=== PATIENT | female | born 1940 | race Caucasian/White ===

== ENCOUNTER 2016-08-26 12:37 | Emergency (ER) | payer MEDICARE ==
[2016-08-26 12:49] VITALS: BP 122/72
--- NOTE | 2016-08-26 13:44 | UC ---
Skin Complaint HPI - HPI Summary HPI Summary: Was out working in yard clearing brush all day yesterday. Noticed small spot on back, picked it off and saw it was a tick. Thinks it was on for only a few hours. Also had been noticing burning pain in R abdomen where she sometimes gets pain due to shingles for a couple days and saw last night that there was a tick on the area. Pulled it off but also used tweezers to dig around, thinks there is some of the tick left. This morning has painful red blotch around the spot. - History of Current Complaint Chief Complaint: UCSkin Time Seen by Provider: 08/26/16 13:26 Stated Complaint: TICK BITES Hx Obtained From: Patient ?: No Onset/Duration: Sudden Onset, Lasting Days Skin Exposure Onset/Duration: Days Ago Timing: Constant Onset Severity: Mild Current Severity: Moderate Location: Discrete Character: Pain, Redness Aggravating: Touch Alleviating: Nothing Associated Signs & Symptoms: Positive: Rash. Negative: Fever, Chills Related History: Insect Bite/Sting - Allergy/Home Medications Allergies/Adverse Reactions: Allergies Allergy/AdvReac Type Severity Reaction Status Date / Time Clavulanic Acid Allergy Severe Vomiting Verified 08/26/16 12:49 [From Augmentin] Moxifloxacin [From Avelox] Allergy Severe Vomiting Verified 08/26/16 12:49 Review of Systems Constitutional: Negative Skin: Rash, Other - tick bites Eyes: Negative ENT: Negative Respiratory: Negative Cardiovascular: Negative Gastrointestinal: Negative Genitourinary: Negative Motor: Negative Neurovascular: Negative Musculoskeletal: Negative Neurological: Negative Psychological: Negative All Other Systems Reviewed And Are Negative: Yes PMH/Surg Hx/FS Hx/Imm Hx Endocrine History Of: Reports: Diabetes Cardiovascular History Of: Reports: Hypertension - ON MEDS Denies: Pacemaker/ICD Respiratory History Of: Denies: Asthma, Bronchitis GI/ History Of: Reports: Ulcer - gerd Denies: Renal Disease - Surgical History Surgical History: Yes Surgery Procedure, Year, and Place: hysterectomy - Family History Known Family History: Positive: Hypertension - Social History Occupation: Retired Lives: Alone Alcohol Use: None Substance Use Type: None Smoking Status (MU): Never Smoked Tobacco - Immunization History Most Recent Influenza Vaccination: 2013 Most Recent Tetanus Shot: UNSURE Most Recent Pneumonia Vaccination: 2013 Physical Exam Triage Information Reviewed: Yes Appearance: Well-Appearing, No Pain Distress, Well-Nourished Vital Signs: Initial Vital Signs Temp 97.6 F 08/26/16 12:43 Pulse 94 08/26/16 12:43 Resp 16 08/26/16 12:43 BP 122/72 08/26/16 12:43 Pulse Ox 99 08/26/16 12:43 Vital Signs Reviewed: Yes Eye Exam: Normal Eyes: Positive: Conjunctiva Clear ENT Exam: Normal ENT: Positive: Normal ENT inspection, Hearing grossly normal, Pharynx normal, TMs normal Dental Exam: Normal Neck exam: Normal Neck: Positive: Supple, Nontender, No Lymphadenopathy Respiratory Exam: Normal Respiratory: Positive: Chest non-tender, Lungs clear, Normal breath sounds, No respiratory distress, No accessory muscle use Cardiovascular Exam: Normal Cardiovascular: Positive: RRR, No Murmur Musculoskeletal Exam: Normal Neurological Exam: Normal Neurological: Positive: Alert Psychological Exam: Normal Skin Exam: Other - tick bite on back faint, small, benign. Tick bite on R abd excoriated, irreg, indurated 4-5cm diameter erythema around it. Course/Dx - Diagnoses Provider Diagnoses: Tick bites. R abdomen cellulitis secondary to picking out tick from skin Discharge - Discharge Plan Condition: Stable Disposition: HOME Prescriptions: DOXYcycline CAP(*) [DOXYcycline 100MG CAP(*)] 100 mg PO BID #14 cap Patient Education Materials: Tick Bite (ED), Cellulitis (ED) Referrals: Jaylen Talavera MD [Primary Care Provider] - Additional Instructions: WE DISCUSSED, THE REDNESS AROUND THE TICK BITE ON YOUR ABDOMEN IS FROM A SECONDARY BACTERIAL INFECTION THAT YOU DEVELOPED AFTER PICKING AT THE AREA. I DO NOT THINK IT IS LYME DISEASE BECAUSE IT IS PAINFUL AND SWOLLEN AND BECAUSE IT SHOWED UP TOO SOON AFTER YOUR TICK EXPOSURE. If you develop any of the following, please see your physician promptly: (1) Fever, chills, or generalized malaise associated with a headache. (2) A red round area at the site of the bite (or elsewhere) (3) Joint pain, joint swelling or generalized weakness. (4) Redness, swelling, or drainage at the site of the bite. Check yourself, your children and your pets for ticks whenever you've been in an area where ticks live. To remove a tick, grasp it firmly with some tweezers or a string in a slipknot as close to its head as possible and pull it steadily. Ticks do not have a typical "head" attached to their body. There are mouth parts sticking out which they use to feed. If there are mouth parts left behind in the wound there is NO increased risk of Lyme infection; however, the chances of a bacterial skin infection (cellulitis) are higher. If mouth parts remain after tick removal, the best thing to do is apply warm soaks to the area 3-4 times per day to encourage the skin to expel the foreign material. WHEN A TICK IS NOT ENGORGED AND HAS BEEN ON LESS THAN 24 HOURS - THE RISK FOR LYME IS NEGLIGIBLE. YOU CAN REMOVE THE TICK AND OBSERVE THE AREA ON YOUR OWN. FOLLOW-UP CARE: You should contact your private physician for follow-up care if you develop spreading redness near the site of the bite or on any other areas of the body. If you are unable to get a timely appointment, or if you are worsening, call us or return for re-evaluation.
== END 2016-08-26 13:45 | disposition home or self-care (01) ==
LOC: UCEAST 12:37
DX: S30.861A Insect bite (nonvenomous) of abdominal wall, initial encounter (principal); W57.XXXA Bitten or stung by nonvenomous insect and other nonvenomous arthropods, initial encounter; E11.9 Type 2 diabetes mellitus without complications; I10 Essential (primary) hypertension; K21.9 Gastro-esophageal reflux disease without esophagitis; Z88.3 Allergy status to other anti-infective agents
CPT/HCPCS: 99212; G0463

== ENCOUNTER 2018-01-09 11:10 | Emergency (ER) | payer MEDICARE ==
[2018-01-09 11:21] VITALS: BP 121/62
--- NOTE | 2018-01-09 11:39 | UC ---
Skin Complaint HPI - HPI Summary HPI Summary: Onset 2 days ago of swelling inside mouth left side more than right. Has had difficulty and pain with swallowing since yesterday. Unable to get her pills down. Difficulty even with water. Redness of the skin extending from under her chin down her neck. Denies any difficulty breathing. Is able to talk in full sentences and is handling her secretions. No fever or nausea. States she has trouble with her teeth on the left lower side. - History of Current Complaint Chief Complaint: UCGeneralIllness Time Seen by Provider: 01/09/18 11:22 Stated Complaint: UNABLE TO SWOLLOW Hx Obtained From: Patient Hx Last Menstrual Period: post Onset/Duration: Sudden Onset, Lasting Days, Still Present Timing: Constant Onset Severity: Moderate Current Severity: Moderate Pain Intensity: 6 Pain Scale Used: 0-10 Numeric Character: Pain, Redness Aggravating Factor(s): Touch Alleviating Factor(s): Nothing Associated Signs & Symptoms: Positive: Fever, Tenderness. Negative: Difficulty Breathing, Throat Tightening - Allergy/Home Medications Allergies/Adverse Reactions: Allergies Allergy/AdvReac Type Severity Reaction Status Date / Time clavulanic acid Allergy Severe Vomiting Verified 01/09/18 11:27 moxifloxacin [From Avelox] Allergy Severe Vomiting Verified 01/09/18 11:27 Review of Systems Constitutional: Fever, Chills Skin: Other - ERYTHEMA ENT: Dental Pain Respiratory: Negative Cardiovascular: Negative Gastrointestinal: Other - PAIN/DIFFICULTY SWALLOWING All Other Systems Reviewed And Are Negative: Yes PMH/Surg Hx/FS Hx/Imm Hx Endocrine History: Diabetes Cardiovascular History: Hypertension GI/ History: Gastroesophageal Reflux - Surgical History Surgical History: Yes Surgery Procedure, Year, and Place: hysterectomy- total - Family History Known Family History: Positive: Hypertension - Social History Alcohol Use: None Substance Use Type: None Smoking Status (MU): Never Smoked Tobacco - Immunization History Most Recent Influenza Vaccination: 2013 Most Recent Tetanus Shot: UNSURE Most Recent Pneumonia Vaccination: 2013 Physical Exam Triage Information Reviewed: Yes Appearance: Well-Nourished, Ill-Appearing - MILD Vital Signs: Initial Vital Signs Temp 98.2 F 01/09/18 11:16 Pulse 98 01/09/18 11:16 Resp 15 01/09/18 11:16 BP 121/62 01/09/18 11:16 Pulse Ox 97 09/12/18 11:16 Vital Signs Reviewed: Yes Eyes: Positive: Conjunctiva Clear ENT: Positive: Hearing grossly normal, Trismus, Other - ERYTHEMA, SUBLINGUAL EDEMA Dental: Positive: Percussion Tenderness @, Gross Decay/Caries @, Cervical Lymphadenopathy Neck: Positive: Tenderness @ - DIFFUSELY LEFT>RIGHT Respiratory Exam: Normal Cardiovascular Exam: Normal Abdomen Description: Positive: Soft Musculoskeletal: Positive: No Edema Neurological: Positive: Alert Psychological: Positive: Normal Response To Family, Age Appropriate Behavior Skin: Positive: Other - ERYTHEMA EXTENDING FROM UNDER CHIN TO UPPER STERNUM Course/Dx - Course Course Of Treatment: PT OFFERED TRANSPORT TO THE ED BY AMBULANCE BUT DECLINES. ADVISED THAT BY NOT TRAVELING IN A MONITORED SETTING SHE COULD BE RISKING WORSENING OF HER CONDITION THAT COULD POSE A THREAT TO HER LIFE, HEALTH AND MEDICAL SAFETY. SHE VERBALIZES UNDERSTANDING AND CONTINUES TO DECLINE AMBULANCE TRANSFER. - Diagnoses Provider Diagnoses: CELLULITIS/ORAL INFECTION Discharge - Sign-Out/Discharge Documenting (check all that apply): Patient Departure All imaging exams completed and their final reports reviewed: No Studies - Discharge Plan Condition: Stable Disposition: TRANS [facility] Patient Education Materials: Cellulitis (ED) Referrals: Jaylen Talavera MD [Primary Care Provider] - Additional Instructions: [place] [facility] [place] FURTHER EVALU[place]. YOU APPEAR TO HAVE AN INFECTION THAT MAY BE STEMMING FROM YOUR TEETH. GIVEN THE EXTENT OF THE SWELLING, REDNESS AND TENDERNESS IN THE AREA OF YOUR JAW AND NECK AND YOUR DIFFICULTY SWALLOWING, TRANSFER TO THE ED IS WARRANTED. YOU HAVE DECLINED TRANSFER TO THE ED BY AMBULANCE. BE ADVISED THAT BY NOT TRAVELING IN A MONITORED SETTING YOU COULD BE RISKING WORSENING OF YOUR CONDITION THAT COULD POSE A THREAT TO YOUR LIFE, HEALTH AND MEDICAL SAFETY. - Billing Disposition and Condition Condition: STABLE Disposition: [facility] Care Fac
== END 2018-01-09 11:43 | disposition short-term general hospital (02) ==
LOC: UCEAST 11:10
DX: K12.2 Cellulitis and abscess of mouth (principal); Z88.8 Allergy status to other drugs, medicaments and biological substances
CPT/HCPCS: 99213; G0463

== ENCOUNTER 2018-01-09 11:53 | Inpatient (IN) | payer MEDICARE ==
--- NOTE | 2018-01-09 13:16 | RAD ---
INDICATION: Sepsis. COMPARISON: Comparison is made with a prior study from July 10, 2012. TECHNIQUE: A portable view of the chest was obtained. FINDINGS: Cardiac and mediastinal contours appear to be within normal limits. The lungs are clear. No pleural effusion is seen. IMPRESSION: NO EVIDENCE FOR ACUTE DISEASE.
--- NOTE | 2018-01-09 13:17 | ED ---
Skin Complaint - HPI Summary HPI Summary: Pt is a 77 year old female presenting to the ED with a chief complaint of a toothache onset 3 days ago. The pain is on the left lower side of the mouth where he wisdom tooth is, and she was up all night last night with pain, has not been able to eat, drink, or swallow. This morning, she went to the and they sent her here. She has been producing phlegm and mucous and has been spitting it out because she cannot swallow it. - History of Current Complaint Chief Complaint: EDRashSkinAbscess Time Seen by Provider: 01/09/18 12:58 Stated Complaint: DENTAL PAIN/POS INFECTION Hx Obtained From: Patient Hx Last Menstrual Period: post Onset/Duration: Started Days Ago, Still Present, Worse Since - this morning Skin Exposure Onset/Duration: Days Ago Timing: Constant, Lasting Days Onset Severity: Severe Current Severity: Severe Pain Intensity: 10 Pain Scale Used: 0-10 Numeric Skin Location: Other: - lower L jaw Character: Swelling - in mouth, Pain Aggravating Symptom(s): Other: - eating, drinking, swallowing spit Alleviating Symptom(s): Nothing - Additional Pertinent History Primary Care Physician: [id number] - Allergy/Home Medications Allergies/Adverse Reactions: Allergies Allergy/AdvReac Type Severity Reaction Status Date / Time clavulanic acid Allergy Severe Vomiting Verified 01/09/18 11:27 moxifloxacin [From Avelox] Allergy Severe Vomiting Verified 01/09/18 11:27 Home Medications: Home Medications Benzonatate CAP* [Tessalon 100 MG CAP*] 200 mg PO TID PRN 01/09/18 [History Confirmed 01/09/18] Cetirizine* [ZyrTEC 10 MG TAB*] 10 mg PO DAILY 01/09/18 [History Confirmed 01/09] Cyclobenzaprine TAB* [Flexeril 10 MG TAB*] 10 mg PO TID PRN 01/09/18 [History Confirmed 01/09/18] Diclofenac 1% GEL (NF) [Voltaren 1% GEL (NF)] 2 applic TOPICAL TID PRN 01/09/18 [History Confirmed 01/09/18] Gabapentin CAP(*) [Neurontin 300 CAP(*)] 300 mg PO TID 01/09/18 [History Confirmed 01/09/18] GuaiFENesin DM* [Robitussin DM*] 5 ml PO Q4H PRN 01/09/18 [History Confirmed 04/16] Lisinopril TAB* [Prinivil TAB*] 30 mg PO DAILY 01/09/18 [History Confirmed 01/09] Multivitamins/Minerals TAB* [Theragran/minerals TAB*] 1 tab PO DAILY 01/09/18 [ History Confirmed 01/09/18] Omeprazole CAP* [Prilosec CAP* 20 MG] 40 mg PO DAILY 01/09/18 [History Confirmed 01/09/18] Oxybutynin XL TAB* [Ditropan XL TAB*] 5 mg PO DAILY 01/09/18 [History Confirmed 01/09/18] Pravastatin (NF) [Pravachol (NF)] 80 mg PO DAILY 01/09/18 [History Confirmed 04/16] PMH/Surg Hx/FS Hx/Imm Hx Previously Healthy: No Endocrine/Hematology History: Reports: Hx Diabetes - NIDDM Cardiovascular History: Reports: Hx Hypertension - ON MEDS Denies: Hx Pacemaker/ICD Respiratory History: Denies: Hx Asthma GI History: Reports: Hx Gastroesophageal Reflux Disease, Hx Ulcer - gerd History: Reports: Hx Kidney Infection - UTI Denies: Hx Renal Disease Musculoskeletal History: Reports: Hx Arthritis, Hx Back Problems - CERVICAL VERTEBRAE DISLOCATION Sensory History: Reports: Hx Contacts or Glasses Denies: Hx Hearing Aid Opthamlomology History: Reports: Hx Contacts or Glasses Neurological History: Reports: 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, Other Neuro Impairments/Disorders - HX OF NUMBNESS IN EXTREMITIES FROM CERVICAL DISLOCATION Psychiatric History: Reports: Other Psychiatric Issues/Disorders - CLAUSTROPHOBIA Denies: Hx Panic Disorder - Surgical History Surgery Procedure, Year, and Place: hysterectomy- total Hx Anesthesia Reactions: No Infectious Disease History: No Infectious Disease History: Reports: Hx Hepatitis - as a child, Hx Shingles - 2011 Denies: Hx Clostridium Difficile, Hx Human Immunodeficiency Virus (HIV), Hx of Known/Suspected MRSA, Hx Tuberculosis, History Other Infectious Disease, Traveled Outside the [place] in Last 30 Days - Family History Known Family History: Positive: Hypertension - Social History Alcohol Use: None Substance Use Type: Reports: None Smoking Status (MU): Never Smoked Tobacco Review of Systems Negative: Fever, Chills Negative: Erythema ENT: Other - swollen painful toothache L lower mouth Positive: Sore Throat Negative: Chest Pain Negative: Shortness Of Breath, Cough Negative: Abdominal Pain, Vomiting, Nausea Negative: dysuria, hematuria Negative: Myalgia, Edema Negative: Rash Neurological: Negative - dizziness All Other Systems Reviewed And Are Negative: Yes Physical Exam - Summary Physical Exam Summary: Constitutional: Well-developed, Well-nourished, Alert. (-) Distressed Skin: Warm, Dry HENT: Moderate trismus, brawny edema in the SL space with elevation of tongue on L side, seems to be handling secretions, no stridor. Eyes: Conjunctiva normal Neck: Musculoskeletal ROM normal neck. (-) JVD, (-) Tracheal deviation Cardio: Rhythm regular, rate normal, Heart sounds normal; Intact distal pulses; The pedal pulses are 2+ and symmetric. Radial pulses are 2+ and symmetric. (-) Murmur Pulmonary/Chest wall: Effort normal. (-) Respiratory distress, (-) Wheezes, (-) Rales Abd: Soft, (-) epigastric tenderness, (-) Distension, (-) Guarding, (-) Rebound Musculoskeletal: (-) Edema Lymph: (-) Cervical adenopathy Neuro: Alert, Oriented x3 Psych: Mood and affect Normal Triage Information Reviewed: Yes Vital Signs On Initial Exam: Initial Vitals Temp Pulse Resp BP Pulse Ox 98.4 F 92 15 125/67 98 01/09/18 12:03 01/09/18 12:03 01/09/18 12:03 01/09/18 12:03 01/09/18 12:03 Vital Signs Reviewed: Yes Diagnostics - Vital Signs Vital Signs Temp Pulse Resp BP Pulse Ox 01/09/18 13:01 80 12 121/81 99 01/09/18 13:00 20 01/09/18 12:03 98.4 F 92 15 125/67 98 - Laboratory Result Diagrams: 01/09/18 13:16 01/09/18 13:16 Lab Statement: Any lab studies that have been ordered have been reviewed, and results considered in the medical decision making process. - Radiology CXR Xray Interpretation: No Acute Changes - Chest X-Ray: No evidence for acute disease Radiology Interpretation Completed By: Radiologist - ED physician has reviewed this report. Course/Dx - Course Course Of Treatment: Pt is a 77 year old female presenting to the ED with left lower jaw/tooth pain. Her mouth is swollen and she cannot drink, eat, or swallow. Upon examination, I believe pt needs to be admitted. I spoke with Dr. Barron in ENT, who advised 12 mg of decadron q12hrs, and will be in to see the pt later this evening. He agreed with abx. No indication for intubation. Also discussed w/ roll sheeting cutter Dr. June, who is coming to see the pt within 20 minutes. Pt will be closely monitored. - Diagnoses Provider Diagnoses: Jayden's angina, Sepsis - Critical Care Time Critical Care Time: 30-74 min - 1 hour Discharge - Sign-Out/Discharge Documenting (check all that apply): Patient Departure - admission - Discharge Plan Condition: Stable Disposition: ADMITTED TO [facility] Referrals: Jaylen Talavera MD [Primary Care Provider] - - Attestation Statements Document Initiated by Scribe: Yes Documenting Scribe: Ayla Marie Provider For Whom Scribe is Documenting (Include Credential): Adam Kraft MD. Scribe Attestation: I, Ayla Marie, scribed for Adam Kraft MD. on 01/09/18 at 1658. Consult Consult: 1810 - Spoke with Dr. Barron in ENT, who advised 12 mg of decadron q12hrs, agreed upon an abx course, and will be in later to see the pt. Also spoke with the roll sheeting cutter Dr. June, who agreed to see the pt within 20 minutes.
[2018-01-09 13:24] LABS: ABS Basophils 0.1 10^3/ul (0-0.2); ABS Eosinophils 0 10^3/ul (0-0.6); ABS Monocytes 1.4 10^3/ul (0-0.8); ABS Neutrophils 13.4 10^3/ul (1.5-7.7); ABS Nucleated RBC 0 10^3/ul; Eosinophil % 0.1 % (0-6); Hematocrit 38 % (35-47); Hemoglobin 12.7 g/dl (12.0-16.0); Mean Corpuscular HGB Conc 34 g/dl (31-36); Mean Corpuscular Hemoglobin 32 pg (27-31); Mean Corpuscular Volume 95 fL (80-97); Mean Platelet Volume 8.6 um3 (7.4-10.4); Nucleated Red Blood Cells % 0; Platelet Count 211 10^3/ul (150-450); Red Blood Count 3.99 10^6/ul (4.00-5.40); Red Cell Distribution Width 14 % (10.5-15); White Blood Count 16.8 10^3/ul (3.5-10.8)
[2018-01-09 13:37] LABS: INR 0.98 (0.77-1.02)
[2018-01-09 13:46] LABS: EGFR Non-African American 84.4 (>60)
[2018-01-09] MEDS ORDERED: NS 0.9% 1000 ML* 1,500 ML IV ONE (14:44)
[2018-01-09] MEDS ORDERED: Vancomycin(*) 1,250 MG in NS 0.9% 250 ML* 250 ML IVPB ONE (14:44)
[2018-01-09] MEDS ORDERED: NS 0.9% 250 ML* 0 ML ONE (14:50)
[2018-01-09] MEDS ORDERED: Dexamethasone IV* 4 MG/ML 1 ML (4 MG) IV SLOW PU ONE ×2 (15:03→15:16)
[2018-01-09] MEDS ORDERED: metroNIDAZOLE IV 500 MG/100ML* 500 MG/100 ML BAG IVPB ONE (15:10)
[2018-01-09] MEDS ORDERED: Cefepime 2 GM in Dextrose(*) 2 GM/50 ML BAG IV ONE (15:10)
[2018-01-09] MEDS ORDERED: Morphine VIAL* 10 MG/ML 1 ML VIAL IV ONE (15:13)
[2018-01-09] MEDS ORDERED: Ondansetron INJ* 2 MG/ML VIAL IV ONE (15:13)
[2018-01-09] MEDS ORDERED: Iohexol 300* (CONTRAST) 10 ML SDV IV ONE (16:31)
[2018-01-09] MEDS ORDERED: Dextrose 50% Syringe 50 ML* 25 GM/50 ML SYRINGE IV PUSH PRN (17:13)
[2018-01-09] MEDS ORDERED: Morphine INJ* 2 MG/ML 1 ML SYRINGE (TWO MG - NEW SYRINGE VERSION) IV PRN (17:20)
[2018-01-09 17:29] LABS: Urine Appearance Clear; Urine Blood 1+ (Negative); Urine Color Straw; Urine Ketones Trace (Negative); Urine Protein Negative (Negative); Urine Red Blood Cell Absent (Absent); Urine Specific Gravity 1.004 (1.010-1.030); Urine Urobilinogen Negative (Negative); Urine White Blood Cell Trace(0-5/hpf) (Absent)
--- NOTE | 2018-01-09 17:36 | RAD ---
Indication: Abscess, Jayden angina. Contrast: Administered 50.4 ml of OMNIPAQUE 300 mg/ml CT of the soft tissues of the neck performed in the axial plane. Sagittal and coronal reconstructed images were obtained. The lung apices are grossly unremarkable. The origins of the great vessels are unremarkable. Inferior thyroid lobes are grossly unremarkable. The thyroid gland is unremarkable. Submandibular glands are prominent on the left. In the floor of the mouth there is edema especially around the strap muscles towards the left. The however there is no drainable fluid collections noted. This is consistent with patient's history. The oral pharynx and tonsillar pillars are otherwise unremarkable. No prevertebral soft tissue swelling is noted. Parotid glands are unremarkable. No significant adenopathy is noted although small 5 mm lymph nodes are noted in the posterior triangle bilaterally. Multilevel degenerative disc disease is noted within the cervical spine. Evaluation of the mandible demonstrates multiple dental caries. Multiple dental caries are noted in the teeth in the maxilla as well. Multiple missing teeth are also noted. IMPRESSION: There is edema in the submandibular area surrounding the strap muscles and left submandibular gland. This is consistent with inflammatory change with no evidence of drainable fluid collections. Multiple areas of missing teeth is noted in the mandible and maxilla as well as multiple dental caries noted.
--- NOTE | 2018-01-09 17:44 | HP ---
H&P (Free Text) History and Physical: [facility] History and Physical CC: difficulty swallowing HPI: 77F with htn, hld, dm presents with difficulty swallowing. She has associated left jaw pain and drooling. She denies any fever or chills. The patient states the symptoms started approximately 2 days ago. She reports that is progressing and is now unbearable. She came to the ER and there was concern for possible submandibular soft tissue infection that could possibly compromise her airway so icu was consulted. ROS - as per HPI PMHx - htn, hld, dm PSHx - hysterectomny All - moxifloxicin, clavulanic acid FamHx - denies SocHx - no drugs, etoh, tobacco PE Vital Signs: Temp Pulse Resp BP Pulse Ox 98.4 F 88 16 138/68 98 01/09/18 17:34 01/09/18 17:34 01/09/18 17:34 01/09/18 17:34 01/09/18 17:34 Gen - NAD HEENT - ncat, +left tmj tenderness Neck - + erythema, no masses CV - s1/s2, no murmur Lungs - cta, no wheeze Abd - soft, nt Ext - no edema Neuro - non-focal Labs Laboratory Results - last 24 hr 01/09/18 01/09/18 01/09/18 13:16 13:16 13:16 WBC 16.8 H RBC 3.99 L Hgb 12.7 Hct 38 MCV 95 MCH 32 H MCHC 34 RDW 14 Plt Count 211 MPV 8.6 Neut % (Auto) 79.5 Lymph % (Auto) 12.0 L Crosby % (Auto) 8.1 H Eos % (Auto) 0.1 Baso % (Auto) 0.3 Absolute Neuts (auto) 13.4 H Absolute Lymphs (auto) 2.0 Absolute Monos (auto) 1.4 H Absolute Eos (auto) 0 Absolute Basos (auto) 0.1 Absolute Nucleated RBC 0 Nucleated RBC % 0 INR (Anticoag Therapy) 0.98 APTT 31.6 Sodium 137 Potassium 3.5 Chloride 98 L Carbon Dioxide 29 Anion Gap 10 BUN 12 Creatinine 0.68 Est GFR ( Amer) 102.1 Est GFR (Non-Af Amer) 84.4 BUN/Creatinine Ratio 17.6 Glucose 108 H Lactic Acid Calcium 9.2 Total Bilirubin 1.00 AST 13 ALT 12 Alkaline Phosphatase 65 Troponin I 0.01 Total Protein 7.3 Albumin 4.3 Globulin 3.0 Albumin/Globulin Ratio 1.4 Urine Color Urine Appearance Urine pH Ur Specific Dimmitt Urine Protein Urine Ketones Urine Blood Urine Nitrate Urine Bilirubin Urine Urobilinogen Ur Leukocyte Esterase Urine WBC (Auto) Urine RBC (Auto) Ur Squamous Epith Cells Urine Bacteria Urine Glucose 01/09/18 01/09/18 01/09/18 13:16 16:43 17:20 WBC RBC Hgb Hct MCV MCH MCHC RDW Plt Count MPV Neut % (Auto) Lymph % (Auto) Crosby % (Auto) Eos % (Auto) Baso % (Auto) Absolute Neuts (auto) Absolute Lymphs (auto) Absolute Monos (auto) Absolute Eos (auto) Absolute Basos (auto) Absolute Nucleated RBC Nucleated RBC % INR (Anticoag Therapy) APTT Sodium Potassium Chloride Carbon Dioxide Anion Gap BUN Creatinine Est GFR ( Amer) Est GFR (Non-Af Amer) BUN/Creatinine Ratio Glucose Lactic Acid 1.0 0.9 Calcium Total Bilirubin AST ALT Alkaline Phosphatase Troponin I Total Protein Albumin Globulin Albumin/Globulin Ratio Urine Color Straw Urine Appearance Clear Urine pH 5.0 Ur Specific Dimmitt 1.004 L Urine Protein Negative Urine Ketones Trace A Urine Blood 1+ A Urine Nitrate Negative Urine Bilirubin Negative Urine Urobilinogen Negative Ur Leukocyte Esterase Negative Urine WBC (Auto) Trace(0-5/hpf) Urine RBC (Auto) Absent Ur Squamous Epith Cells Present A Urine Bacteria Absent Urine Glucose Negative Imaging CT neck 01/09/18 - pending CXR 01/09 IMPRESSION: NO EVIDENCE FOR ACUTE DISEASE. Impression 77F with htn, hld, dm presents with infected tooth and possible airway compromise Plan - Monitor airway - cefepime/flagyl - decadron q12 - npo - aspiration precautions - ENT evaluated patient in ER - oral surgery consult in am - pain control - check fs, niss - dvt ppx - full code Admit to ICU for monitoring Critical Care Time: 45 mins
[2018-01-09] MEDS ORDERED: Vancomycin per Pharmacy* NOTE FOLLOW UP SCH (18:00)
[2018-01-09] MEDS ORDERED: Dexamethasone IV* 4 MG in NS 0.9% 50 ML* 50 ML IVPB SCH (18:00)
[2018-01-09] MEDS ORDERED: Cefepime 2 GM in Dextrose(*) 2 GM/50 ML BAG IV SCH (18:00)
[2018-01-09] MEDS: Dexamethasone IV* 8 MG in NS 0.9% 50 ML* 50 ML IVPB SCH (18:59)
[2018-01-09] MEDS: Insulin LISPRO* 1 UNITS UNIT SUBCUT SCH (18:59)
--- NOTE | 2018-01-09 21:54 | CONS ---
CONSULTATION REPORT: DATE OF CONSULT: 01/09/18 Requesting consultation is the emergency room and the intensive care unit. HISTORY OF PRESENT ILLNESS: The patient presented with swelling in her floor of mouth and the plan at this point is to admit her for IV antibiotics. She has gotten some IV antibiotics and steroids in the ICU and she just has a CT scan. She states she has been having problems with lower left posterior molar and it has been infected and then she started having the swelling. PHYSICAL EXAMINATION: On physical examination, she has got some submental induration more centered on the left side and some floor of mouth swelling, again more centered on the left side posteriorly to the molar where she has some pus draining. She does not have any retropulsion of her tongue. No airway difficulties at this time. ASSESSMENT: The patient has a orofacial cellulitis and neck cellulitis secondary to a dental infection. She is being admitted for IV antibiotics and steroids, for precaution at least 1 night in the ICU. I have spoken to the intensive care unit doctor. [id number] #: [id number]
[2018-01-09] MEDS: metroNIDAZOLE IV 500 MG/100ML* 500 MG/100 ML BAG IVPB SCH (23:19)
[2018-01-10] MEDS: Insulin LISPRO* 1 UNITS UNIT SUBCUT SCH ×5 (00:14→21:09)
[2018-01-10] MEDS: NS 0.9% IVPB SCH ×2 (03:06→16:26)
[2018-01-10] MEDS: CEFEPIME ADVAN IVPB SCH ×2 (03:06→16:26)
[2018-01-10 05:21] LABS: ABS Basophils 0 10^3/ul (0-0.2); ABS Eosinophils 0 10^3/ul (0-0.6); ABS Lymphocytes 0.8 10^3/ul (1.0-4.8); ABS Monocytes 0.4 10^3/ul (0-0.8); ABS Neutrophils 12.3 10^3/ul (1.5-7.7); ABS Nucleated RBC 0 10^3/ul; Eosinophil % 0 % (0-6); Hematocrit 35 % (35-47); Hemoglobin 11.7 g/dl (12.0-16.0); Lymphocyte % 5.6 % (25-47); Mean Corpuscular HGB Conc 33 g/dl (31-36); Mean Corpuscular Hemoglobin 32 pg (27-31); Mean Corpuscular Volume 95 fL (80-97); Mean Platelet Volume 9.1 um3 (7.4-10.4); Nucleated Red Blood Cells % 0; Platelet Count 183 10^3/ul (150-450); Red Blood Count 3.69 10^6/ul (4.00-5.40); Red Cell Distribution Width 14 % (10.5-15); White Blood Count 13.5 10^3/ul (3.5-10.8)
[2018-01-10] MEDS: Dexamethasone IV* 8 MG in NS 0.9% 50 ML* 50 ML IVPB SCH ×2 (05:21→17:54)
[2018-01-10] MEDS ORDERED: Ketorolac INJ* 15 MG/ML 1 ML VIAL IV PUSH ONE (05:33)
[2018-01-10 05:38] LABS: EGFR Non-African American 101.3 (>60)
[2018-01-10] MEDS ORDERED: Magnesium Sulfate IV* 3 GM in NS 0.9% 100 ML* 100 ML IVPB ONE (07:57)
[2018-01-10] MEDS: metroNIDAZOLE IV 500 MG/100ML* 500 MG/100 ML BAG IVPB SCH ×3 (08:01→22:54)
--- NOTE | 2018-01-10 08:12 | PN ---
Date of Service: 01/10/18 Critical Care Services: 77F with htn, hld, dm presents with tooth infection and concern for airway compromise. 01/10: Patient did well overnight. Improvement in pain and swelling. Neck ct negative for abscess. OMFS no longer seeing inpatients. Vital Signs: Temp Pulse Resp BP SpO2 FiO2 97.7 F 84 14 147/69 99 01/10/18 07:44 01/10/18 06:00 01/10/18 06:00 01/10/18 04:00 01/10/18 06:00 Physical Exam: Gen - NAD HEENT - ncat, +left tmj tenderness Neck - + erythema, no masses CV - s1/s2, no murmur Lungs - cta, no wheeze Abd - soft, nt Ext - no edema Neuro - non-focal Fluid Balance (Past 24 Hours): I= O= Net Intake & Output 01/08/18 01/09/18 01/10/18 01/11/18 06:59 06:59 06:59 06:59 Intake Total 1360 Balance 1360 Weight 52.9 kg Intake: IV Fluids 1360 NS 210 Other: Estimated Void Medium # Bowel Movements 0 # Voids 2 Labs: Laboratory Results - last 24 hr 01/09/18 01/09/18 01/09/18 13:16 13:16 13:16 WBC 16.8 H RBC 3.99 L Hgb 12.7 Hct 38 MCV 95 MCH 32 H MCHC 34 RDW 14 Plt Count 211 MPV 8.6 Neut % (Auto) 79.5 Lymph % (Auto) 12.0 L [place] % (Auto) 8.1 H Eos % (Auto) 0.1 Baso % (Auto) 0.3 Absolute Neuts (auto) 13.4 H Absolute Lymphs (auto) 2.0 Absolute Monos (auto) 1.4 H Absolute Eos (auto) 0 Absolute Basos (auto) 0.1 Absolute Nucleated RBC 0 Nucleated RBC % 0 INR (Anticoag Therapy) 0.98 APTT 31.6 Sodium 137 Potassium 3.5 Chloride 98 L Carbon Dioxide 29 Anion Gap 10 BUN 12 Creatinine 0.68 Est GFR ( Amer) 102.1 Est GFR (Non-Af Amer) 84.4 BUN/Creatinine Ratio 17.6 Glucose 108 H POC Glucose (mg/dL) Lactic Acid Calcium 9.2 Magnesium Total Bilirubin 1.00 AST 13 ALT 12 Alkaline Phosphatase 65 Troponin I 0.01 Total Protein 7.3 Albumin 4.3 Globulin 3.0 Albumin/Globulin Ratio 1.4 Urine Color Urine Appearance Urine pH Ur Specific [place] Urine Protein Urine Ketones Urine Blood Urine Nitrate Urine Bilirubin Urine Urobilinogen Ur Leukocyte Esterase Urine WBC (Auto) Urine RBC (Auto) Ur Squamous Epith Cells Urine Bacteria Urine Glucose 01/09/18 01/09/18 01/09/18 13:16 16:43 17:20 WBC RBC Hgb Hct MCV MCH MCHC RDW Plt Count MPV Neut % (Auto) Lymph % (Auto) [place] % (Auto) Eos % (Auto) Baso % (Auto) Absolute Neuts (auto) Absolute Lymphs (auto) Absolute Monos (auto) Absolute Eos (auto) Absolute Basos (auto) Absolute Nucleated RBC Nucleated RBC % INR (Anticoag Therapy) APTT Sodium Potassium Chloride Carbon Dioxide Anion Gap BUN Creatinine Est GFR ( Amer) Est GFR (Non-Af Amer) BUN/Creatinine Ratio Glucose POC Glucose (mg/dL) Lactic Acid 1.0 0.9 Calcium Magnesium Total Bilirubin AST ALT Alkaline Phosphatase Troponin I Total Protein Albumin Globulin Albumin/Globulin Ratio Urine Color Straw Urine Appearance Clear Urine pH 5.0 Ur Specific [place] 1.004 L Urine Protein Negative Urine Ketones Trace A Urine Blood 1+ A Urine Nitrate Negative Urine Bilirubin Negative Urine Urobilinogen Negative Ur Leukocyte Esterase Negative Urine WBC (Auto) Trace(0-5/hpf) Urine RBC (Auto) Absent Ur Squamous Epith Cells Present A Urine Bacteria Absent Urine Glucose Negative 01/09/1818 01/10/18 18:17 00:07 05:00 WBC RBC Hgb Hct MCV MCH MCHC RDW Plt Count MPV Neut % (Auto) Lymph % (Auto) [place] % (Auto) Eos % (Auto) Baso % (Auto) Absolute Neuts (auto) Absolute Lymphs (auto) Absolute Monos (auto) Absolute Eos (auto) Absolute Basos (auto) Absolute Nucleated RBC Nucleated RBC % INR (Anticoag Therapy) APTT Sodium 136 Potassium 3.7 Chloride 100 L Carbon Dioxide 24 Anion Gap 12 H BUN 12 Creatinine 0.58 Est GFR ( Amer) 122.6 Est GFR (Non-Af Amer) 101.3 BUN/Creatinine Ratio 20.7 H Glucose 166 H POC Glucose (mg/dL) 179 H 189 H Lactic Acid Calcium 9.0 Magnesium 1.3 L Total Bilirubin AST ALT Alkaline Phosphatase Troponin I Total Protein Albumin Globulin Albumin/Globulin Ratio Urine Color Urine Appearance Urine pH Ur Specific [place] Urine Protein Urine Ketones Urine Blood Urine Nitrate Urine Bilirubin Urine Urobilinogen Ur Leukocyte Esterase Urine WBC (Auto) Urine RBC (Auto) Ur Squamous Epith Cells Urine Bacteria Urine Glucose 01/10/18 05:00 WBC 13.5 H RBC 3.69 L Hgb 11.7 L Hct 35 MCV 95 MCH 32 H MCHC 33 RDW 14 Plt Count 183 MPV 9.1 Neut % (Auto) 91.3 H Lymph % (Auto) 5.6 L [place] % (Auto) 3.0 Eos % (Auto) 0 Baso % (Auto) 0.1 Absolute Neuts (auto) 12.3 H Absolute Lymphs (auto) 0.8 L Absolute Monos (auto) 0.4 Absolute Eos (auto) 0 Absolute Basos (auto) 0 Absolute Nucleated RBC 0 Nucleated RBC % 0 INR (Anticoag Therapy) APTT Sodium Potassium Chloride Carbon Dioxide Anion Gap BUN Creatinine Est GFR ( Amer) Est GFR (Non-Af Amer) BUN/Creatinine Ratio Glucose POC Glucose (mg/dL) Lactic Acid Calcium Magnesium Total Bilirubin AST ALT Alkaline Phosphatase Troponin I Total Protein Albumin Globulin Albumin/Globulin Ratio Urine Color Urine Appearance Urine pH Ur Specific [place] Urine Protein Urine Ketones Urine Blood Urine Nitrate Urine Bilirubin Urine Urobilinogen Ur Leukocyte Esterase Urine WBC (Auto) Urine RBC (Auto) Ur Squamous Epith Cells Urine Bacteria Urine Glucose Studies: CT neck 01/09 IMPRESSION: There is edema in the submandibular area surrounding the strap muscles and left submandibular gland. This is consistent with inflammatory change with no evidence of drainable fluid collections. Multiple areas of missing teeth is noted in the mandible and maxilla as well as multiple dental caries noted. Impression: 77F with htn, hld, dm presents with infected tooth and possible airway compromise Plan: Plan - CT neck without abscess - likely needs tooth pulled however OMFS note available inpatient - if continues to improve on abx/steroids possible to discharge to follow up in OMFS office as outpatient, otherwise will need transfer to facility with oral surgery - c/w cefepime/flagyl - tape steroids - pain control - swallow eval - aspiration precautions - restart home bp meds - check fs, niss - gi/dvt ppx - full code Transfer to Floor
[2018-01-10] MEDS ORDERED: Omeprazole CAP* 20 MG PO ONE (08:22)
[2018-01-10] MEDS: Lisinopril TAB* 10 MG PO SCH (09:18)
[2018-01-10] MEDS: Multivitamins/Minerals TAB PO SCH (09:18)
[2018-01-10] MEDS ORDERED: Insulin LISPRO* 1 UNITS UNIT SUBCUT ONE (12:55)
[2018-01-10] MEDS ORDERED: Atorvastatin* 20 MG TAB PO SCH (17:00)
[2018-01-11] MEDS: NS 0.9% IVPB SCH (03:12)
[2018-01-11] MEDS: CEFEPIME ADVAN IVPB SCH (03:12)
[2018-01-11] MEDS: Dexamethasone IV* 8 MG in NS 0.9% 50 ML* 50 ML IVPB SCH (05:40)
[2018-01-11 07:13] LABS: ABS Basophils 0 10^3/ul (0-0.2); ABS Eosinophils 0 10^3/ul (0-0.6); ABS Lymphocytes 0.7 10^3/ul (1.0-4.8); ABS Monocytes 0.7 10^3/ul (0-0.8); ABS Neutrophils 16.7 10^3/ul (1.5-7.7); ABS Nucleated RBC 0 10^3/ul; Eosinophil % 0 % (0-6); Hematocrit 33 % (35-47); Hemoglobin 10.9 g/dl (12.0-16.0); Lymphocyte % 3.9 % (25-47); Mean Corpuscular HGB Conc 33 g/dl (31-36); Mean Corpuscular Hemoglobin 32 pg (27-31); Mean Corpuscular Volume 95 fL (80-97); Mean Platelet Volume 9.1 um3 (7.4-10.4); Nucleated Red Blood Cells % 0; Platelet Count 229 10^3/ul (150-450); Red Blood Count 3.43 10^6/ul (4.00-5.40); Red Cell Distribution Width 14 % (10.5-15); White Blood Count 18.2 10^3/ul (3.5-10.8)
[2018-01-11 07:33] LABS: EGFR Non-African American 95.6 (>60)
[2018-01-11] MEDS: Lisinopril TAB* 10 MG PO SCH (07:40)
[2018-01-11] MEDS: Multivitamins/Minerals TAB PO SCH (07:40)
[2018-01-11] MEDS: metroNIDAZOLE IV 500 MG/100ML* 500 MG/100 ML BAG IVPB SCH (07:40)
[2018-01-11] MEDS: Insulin LISPRO* 1 UNITS UNIT SUBCUT SCH (08:07)
--- NOTE | 2018-01-11 09:37 | PN ---
Progress Note - Progress Note Date of Service: 01/11/18 Note: Time spent on discharge 45 minutes, including exam of patient, discussion with patient, nurse, CM, Dr. Espinoza and his staff, review of EMR and preparation of discharge documents.
[2018-01-11 12:32] VITALS: BP 150/72
--- NOTE | 2018-01-12 06:46 | DS ---
CC: Dr. Talavera; Dr. Orellana DISCHARGE SUMMARY: DATE OF ADMISSION: DATE OF DISCHARGE: 01/11/18 HISTORY OF PRESENT ILLNESS: This 77-year-old presented woman presented with difficulty swallowing and pain in the left jaw. These symptoms started about 2 days before admission and became quite severe. There was some submandibular swelling and there was concern that there might be airway compromise. The patient was admitted to the email developer service in the ICU. She was started on dexamethasone, cefepime, and metronidazole, all given intravenously. She did well with resolution of her swelling, the pain improved significantly as well. She was able to eat and drink normally. There was no airway problem at all. Her white count went down, but started to going up undoubtedly due to the steroid administration. I believe she did not require any analgesics in the hospital, I am not sure if she would accept any. The patient insisted she had to leave this morning. She says she needs to take care of her disabled son as well as her mother who is 95 years old. The patient will go home on prednisone 60 mg daily and clindamycin 300 mg t.i.d. She can see Dr. Orellana on 01/16/18 at 10:45 a.m. Possibly, she will be able to see Dr. Orellana this afternoon, but the availability of this is not known at the time of this dictation. The patient was offered an appointment with Dr. Orellana at 11 o'clock this morning, but declined that. She said she had to go home and arrange for care for her family before she could do anything else. I explained to her that she needed to ensure her own health in order that she would be able in the future to continue to provide for her family care as she has been giving. This did not seem to have any effect on her decision making. FINAL DIAGNOSES: 1. Probable left mandibular dental infection. 2. Diabetes. 3. Hypertension. DISCHARGE MEDICATIONS: 1. Clindamycin 300 mg t.i.d., 21 dispensed. 2. Prednisone 20 mg 3 tablets daily, 15 dispensed. 3. Hydrocodone acetaminophen 5/325 t.i.d. p.r.n. 4. Metformin 1000 mg b.i.d. to not start until Sunday01/12/18. 5. Oxybutynin XL 5 mg daily. 6. Omeprazole 40 mg daily. 7. Multivitamin 1 daily. 8. Lisinopril 30 mg daily. 9. Guaifenesin-DM 5 mL every 4 hours, p.r.n. 10. Gabapentin 300 mg t.i.d. 11. Diclofenac 1% gel t.i.d. p.r.n. 12. Cyclobenzaprine 10 mg t.i.d., p.r.n. 13. Cetirizine 10 mg daily. 14. Benzonatate 200 mg t.i.d., p.r.n. 15. Pravastatin 80 mg daily. CONDITION ON DISCHARGE: Stable. DISPOSITION: Home. [id number]/[facility] #: [id number] [facility]
== END 2018-01-11 12:25 | disposition home or self-care (01) | DRG 158 ==
LOC: ED 11:53 → ICU 17:55 → MED 01-10 14:17
PROVIDERS: ADMIT Internal Medicine; ATTEND Internal Medicine
DX: K04.7 Periapical abscess without sinus (principal); L03.221 Cellulitis of neck; K12.2 Cellulitis and abscess of mouth; M27.2 Inflammatory conditions of jaws; K21.9 Gastro-esophageal reflux disease without esophagitis; E11.9 Type 2 diabetes mellitus without complications; M19.90 Unspecified osteoarthritis, unspecified site; E78.5 Hyperlipidemia, unspecified; F40.240 Claustrophobia; I10 Essential (primary) hypertension; Z88.1 Allergy status to other antibiotic agents; Z88.8 Allergy status to other drugs, medicaments and biological substances; Z87.440 Personal history of urinary (tract) infections; Z90.710 Acquired absence of both cervix and uterus; Z82.49 Family history of ischemic heart disease and other diseases of the circulatory system; Z79.52 Long term (current) use of systemic steroids; Z79.84 Long term (current) use of oral hypoglycemic drugs
CPT/HCPCS: 36415; 70491; 71045; 80048; 80053; 81003; 81015; 83605; 83735; 84484; 85025; 85610; 85730; 87040; 87086; 87641; 99285; A9270-GY; J0692; J1100; J1885; J2270; J2405; J3370; J3475; J3490; Q9967

== ENCOUNTER 2018-11-18 15:04 | Inpatient (IN) | payer MEDICARE ==
[2018-11-18 15:38] LABS: Hematocrit 26 % (35-47); Mean Corpuscular HGB Conc 35 g/dL (31-36); Mean Corpuscular Hemoglobin 29 pg (27-31); Mean Corpuscular Volume 84 fL (80-97); Mean Platelet Volume 8.1 fL (7.4-10.4); Platelet Count 140 10^3/uL (150-450); Red Blood Count 3.07 10^6 /uL (3.70-4.87); Red Cell Distribution Width 17 % (10-15); White Blood Count 22.2 10^3/uL (3.5-10.8)
[2018-11-18] MEDS ORDERED: NS 0.9% 1000 ML** 1,000 ML IV ONE (15:54)
[2018-11-18 15:59] LABS: ALT 28 U/L (7-52); AST 27 U/L (13-39); Albumin 2.9 g/dL (3.2-5.2); Alkaline Phosphatase 541 U/L (34-104); Anion Gap 18 mmol/L (2-11); BUN/Creatinine Ratio 11.5 (8-20); Blood Urea Nitrogen 89 mg/dL (6-24); C Reactive Protein 317.64 mg/L (<8.01); CO2 Carbon Dioxide 15 mmol/L (22-32); Calcium 8.1 mg/dL (8.6-10.3); Chloride 91 mmol/L (101-111); EGFR African American 6.1 (>60); EGFR Non-African American 5.1 (>60); Globulin 2.9 g/dL (2-4); Glucose 63 mg/dL (70-100); Potassium 4.6 mmol/L (3.5-5.0); Sodium 124 mmol/L (135-145); Total Protein 5.8 g/dL (6.4-8.9)
[2018-11-18 16:40] LABS: Troponin I 0.06 ng/mL (<0.04)
--- NOTE | 2018-11-18 17:01 | ED ---
Abdominal Pain/Female - HPI Summary HPI Summary: This patient is a 78 year old F presenting to [facility] accompanied by her granddaughter with a chief complaint of ABD pain and weakness since earlier today. Pt's blood was tested at [facility] and was later told to go to [facility]. The pt rates the pain 10/10 in severity. Symptoms aggravated by nothing. Symptoms alleviated by nothing. Pt reports confusion, tailbone and rib pain. Pt denies N/ V/D. - History of Current Complaint Chief Complaint: EDAbdPain Stated Complaint: DIZZINESS/LOSS OF MEMORY PER GRANDDAUGHTER Time Seen by Provider: 11/18/18 15:18 Hx Obtained From: Patient, Family/Motorcycle Service Technician - granddaughter Hx Last Menstrual Period: post ?: No Onset/Duration: Sudden Onset, Lasting Hours - earlier today Timing: Hours - since earlier today Severity Currently: Severe Pain Intensity: 10 Pain Scale Used: 0-10 Numeric Radiates: No Aggravating Factor(s): Nothing Alleviating Factor(s): Nothing Associated Signs and Symptoms: Positive: Other: - positive - ABD pain, weakness , confusion, tailbone and rib pain. Negative: Nausea, Vomiting, Diarrhea Allergies/Adverse Reactions: Allergies Allergy/AdvReac Type Severity Reaction Status Date / Time clavulanic acid Allergy Severe Vomiting Verified 01/09/18 11:27 moxifloxacin [From Avelox] Allergy Severe Vomiting Verified 01/09/18 11:27 Home Medications: Home Medications Codeine Phosphate/Guaifenesin [Cheratussin AC] 10 ml PO Q4HR PRN 11/18/18 [ History Confirmed 11/18/18] Furosemide TAB* [Lasix TAB*] 10 mg PO DAILY 11/18/18 [History Confirmed 11/18/18 ] Gabapentin CAP(*) [Neurontin 300 CAP(*)] 300 mg PO TID 11/18/18 [History Confirmed 11/18/18] Naproxen [Naproxen 500 mg tab] 500 mg PO BID WITH MEALS PRN 11/18/18 [History Confirmed 11/18/18] PMH/Surg Hx/FS Hx/Imm Hx Previously Healthy: No Endocrine/Hematology History: Reports: Hx Diabetes - NIDDM Cardiovascular History: Reports: Hx Hypercholesterolemia, Hx Hypertension - ON MEDS Denies: Hx Pacemaker/ICD Respiratory History: Denies: Hx Asthma GI History: Reports: Hx Gastroesophageal Reflux Disease, Hx Ulcer - gerd Comment Only: Other GI Disorders - pt. 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, Other Neuro Impairments/Disorders - HX OF NUMBNESS IN EXTREMITIES FROM CERVICAL DISLOCATION Psychiatric History: Reports: Hx Anxiety, Other Psychiatric Issues/Disorders - CLAUSTROPHOBIA Denies: Hx Panic Disorder - Surgical History Surgical History: Yes Surgery Procedure, Year, and Place: hysterectomy- total Hx Anesthesia Reactions: No - Immunization History Immunizations Up to Date: Yes Infectious Disease History: No Infectious Disease History: Reports: Hx Hepatitis - as a child, Hx Shingles - 2011 Denies: Hx Clostridium Difficile, Hx Human Immunodeficiency Virus (HIV), Hx of Known/Suspected MRSA, Hx Tuberculosis, History Other Infectious Disease, Traveled Outside the [place] in Last 30 Days - Family History Known Family History: Positive: Hypertension - Social History Alcohol Use: None Hx Substance Use: No Substance Use Type: Reports: None Hx Tobacco Use: No Smoking Status (MU): Never Smoked Tobacco Do You Chew or Dip Tobacco: No Have You Chewed or Dipped Tobacco in the LAST YEAR: No Have You Smoked in the Last Year: No Review of Systems Constitutional: Other - positive - generalized weakness Positive: Abdominal Pain. Negative: Vomiting, Diarrhea, Nausea Musculoskeletal: Other - positive - tailbone and rib pain Neurological: Other - positive - confusion All Other Systems Reviewed And Are Negative: Yes Physical Exam - Summary Physical Exam Summary: Appearance: The patient is well-nourished in no acute distress and in no acute pain. Skin: The skin is warm and dry. Skin is tented. HEENT: The head is normocephalic and atraumatic. The pupils are equal and reactive. The conjunctivae are clear and without drainage. Nares are patent and without drainage. Mucus membrane dry. The external ears are intact. The ear canals are patent and without drainage. The tympanic membranes are intact. Neck: The neck is supple with full range of motion and non-tender. There are no carotid bruits. There is no neck vein distension. Respiratory: Chest is non-tender. Lungs are clear to auscultation and breath sounds are symmetrical and equal. Cardiovascular: Heart is regular rate and rhythm. There is no murmur or rub auscultated. There is no peripheral edema and pulses are symmetrical and equal. Abdomen: The abdomen is soft and non-tender. There are normal bowel sounds heard in all four quadrants and there is no organomegaly palpated. Musculoskeletal: There is no back tenderness noted. Extremities are non-tender with full range of motion. There is good capillary refill. There is no peripheral edema or calf tenderness elicited. Neurological: Patient is alert and oriented to person, place and time. The patient has symmetrical motor strength in all four extremities. Cranial nerves are grossly intact. Deep tendon reflexes are symmetrical and equal in all four extremities. Psychiatric: The patient has an appropriate affect and does not exhibit any anxiety or depression. Triage Information Reviewed: Yes Vital Signs On Initial Exam: Initial Vitals Temp Pulse Resp BP Pulse Ox 98.3 F 93 18 163/75 97 11/18/18 15:07 11/18/18 15:07 11/18/18 15:07 11/18/18 15:07 11/18/18 15:07 Vital Signs Reviewed: Yes Diagnostics - Vital Signs Vital Signs Temp Pulse Resp BP Pulse Ox 11/18/18 16:00 94 13 98 11/18/18 15:52 93 15 156/62 98 11/18/18 15:24 95 99 11/18/18 15:22 95 163/70 98 11/18/18 15:07 98.3 F 93 18 163/75 97 - Laboratory Lab Results: Lab Results 11/18/18 11/18/18 11/18/18 Range/Units 15:15 15:28 15:28 WBC 22.2 H (3.5-10.8) 10^3/uL RBC 3.07 L (3.70-4.87) 10^6 /uL Hgb 9.0 L (12.0-16.0) g/dL Hct 26 L (35-47) % MCV 84 (80-97) fL MCH 29 (27-31) pg MCHC 35 (31-36) g/dL RDW 17 H (10-15) % Plt Count 140 L (150-450) 10^3/uL MPV 8.1 (7.4-10.4) fL Neut % (Auto) Pending Lymph % (Auto) Pending [place] % (Auto) Pending Eos % (Auto) Pending Baso % (Auto) Pending Absolute Neuts (auto) Pending Absolute Lymphs (auto) Pending Absolute Monos (auto) Pending Absolute Eos (auto) Pending Absolute Basos (auto) Pending Absolute Nucleated RBC Pending Nucleated RBC % Pending Sodium 124 L (135-145) mmol/L Potassium 4.6 (3.5-5.0) mmol/L Chloride 91 L (101-111) mmol/L Carbon Dioxide 15 L (22-32) mmol/L Anion Gap 18 H (2-11) mmol/L BUN 89 H (6-24) mg/dL Creatinine 7.76 H (0.51-0.95) mg/dL Est GFR ( Amer) 6.1 (>60) Est GFR (Non-Af Amer) 5.1 (>60) BUN/Creatinine Ratio 11.5 (8-20) Glucose 63 L (70-100) mg/dL POC Glucose (mg/dL) 62 L (70-100) mg/dL Calcium 8.1 L (8.6-10.3) mg/dL Total Bilirubin 2.70 H (0.2-1.0) mg/dL AST 27 (13-39) U/L ALT 28 (7-52) U/L Alkaline Phosphatase 541 H (34-104) U/L Troponin I 0.06 H* (<0.04) ng/mL C-Reactive Protein 317.64 H (<8.01) mg/L B-Natriuretic Peptide (<=100) pg/mL Total Protein 5.8 L (6.4-8.9) g/dL Albumin 2.9 L (3.2-5.2) g/dL Globulin 2.9 (2-4) g/dL Albumin/Globulin Ratio 1.0 (1-3) 11/18/18 Range/Units 15:28 WBC (3.5-10.8) 10^3/uL RBC (3.70-4.87) 10^6 /uL Hgb (12.0-16.0) g/dL Hct (35-47) % MCV (80-97) fL MCH (27-31) pg MCHC (31-36) g/dL RDW (10-15) % Plt Count (150-450) 10^3/uL MPV (7.4-10.4) fL Neut % (Auto) Lymph % (Auto) [place] % (Auto) Eos % (Auto) Baso % (Auto) Absolute Neuts (auto) Absolute Lymphs (auto) Absolute Monos (auto) Absolute Eos (auto) Absolute Basos (auto) Absolute Nucleated RBC Nucleated RBC % Sodium (135-145) mmol/L Potassium (3.5-5.0) mmol/L Chloride (101-111) mmol/L Carbon Dioxide (22-32) mmol/L Anion Gap (2-11) mmol/L BUN (6-24) mg/dL Creatinine (0.51-0.95) mg/dL Est GFR ( Amer) (>60) Est GFR (Non-Af Amer) (>60) BUN/Creatinine Ratio (8-20) Glucose (70-100) mg/dL POC Glucose (mg/dL) (70-100) mg/dL Calcium (8.6-10.3) mg/dL Total Bilirubin (0.2-1.0) mg/dL AST (13-39) U/L ALT (7-52) U/L Alkaline Phosphatase (34-104) U/L Troponin I (<0.04) ng/mL C-Reactive Protein (<8.01) mg/L B-Natriuretic Peptide 656 H (<=100) pg/mL Total Protein (6.4-8.9) g/dL Albumin (3.2-5.2) g/dL Globulin (2-4) g/dL Albumin/Globulin Ratio (1-3) Result Diagrams: 11/18/18 15:28 11/18/18 15:28 Lab Statement: Any lab studies that have been ordered have been reviewed, and results considered in the medical decision making process. - EKG 1553 Cardiac Rate: NL - 92 BPM EKG Rhythm: Sinus Tachycardia - [address] Segment: Normal Ectopy: None Summary of EKG Findings: Normal sinus rhythm, normal ST, no ectopy, no STEMI Abdominal Pain Fem Course/Dx - Course Course Of Treatment: Ms. Beck was found to be in renal failure and hyponatremic. I spoke with Dr. Mackey who felt that we could keep her here, hydrate her and he would consult on her tomorrow. I spoke with Dr. Hall who accepted. - Diagnoses Provider Diagnoses: Acute renal failure (ARF), Hyponatremia - Critical Care Time Critical Care Time: 30-74 min Discharge - Sign-Out/Discharge Documenting (check all that apply): Patient Departure - Discharge Plan Condition: Stable Disposition: ADMITTED TO [facility] - Billing Disposition and Condition Condition: STABLE Disposition: Admitted to [facility] - Attestation Statements Document Initiated by Scribe: Yes Documenting Scribe: Tomas Jolly Provider For Whom Kimo is Documenting (Include Credential): Dr. Jake Rm MD Scribe Attestation: I, Tomas Jolly, scribed for Dr. Jake Rm MD on 11/18/18 at 2124. Scribe Documentation Reviewed: Yes Provider Attestation: The documentation as recorded by the Tomas coburn accurately reflects the service I personally performed and the decisions made by me, Dr. Jake Rm MD Status of Scribe Document: Viewed
[2018-11-18 17:20] LABS: ABS Basophils 0.1 10^3/ul (0-0.2); ABS Eosinophils 0.1 10^3/ul (0-0.6); ABS Lymphocytes 0.5 10^3/ul (1.0-4.8); ABS Monocytes 0.8 10^3/ul (0-0.8); ABS Neutrophils 20.8 10^3/ul (1.5-7.7); Eosinophil % 0.2 %; Lymphocyte % 2.3 %
[2018-11-18] MEDS ORDERED: Dextrose 50% VIAL 50 ml IV PUSH PRN (18:27)
[2018-11-18 18:49] LABS: Urine Appearance Cloudy; Urine Bacteria 2+ (Absent); Urine Bilirubin Negative (Negative); Urine Blood 3+ (Negative); Urine Color Yellow; Urine Glucose Negative (Negative); Urine Ketones Trace (Negative); Urine Nitrite Negative (Negative); Urine Protein 2+(100 mg/dL) (Negative); Urine Red Blood Cell 1+(3-5/hpf) (Absent); Urine Specific Gravity 1.006 (1.010-1.030); Urine Squamous Epithelial Cell Present (Absent); Urine Urobilinogen Negative (Negative); Urine White Blood Cell 3+(>20/hpf) (Absent)
[2018-11-18 18:53] LABS: Magnesium 1.5 mg/dL (1.9-2.7)
[2018-11-18 18:59] LABS: Phosphorus 4.6 mg/dL (2.5-5.0)
[2018-11-18] MEDS: Sodium Bicarbonate (ANTACID)* 650 MG TAB PO SCH ×2 (20:58→23:07)
[2018-11-18] MEDS: Heparin VIAL(*) 5000 UNITS/ML VIAL (FIVE THOUSAND) SUBCUT SCH (20:59)
[2018-11-18] MEDS: Acetaminophen TAB* 325 MG PO PRN (21:09)
[2018-11-18] MEDS: Lactated Ringers 1000 ML Bag* 1,000 ML IV SCH (21:24)
--- NOTE | 2018-11-18 21:53 | HP ---
CC: Nell Marie NP; Dr. Mackey * HISTORY AND PHYSICAL: DATE OF ADMISSION: 11/18/18 TIME OF EVALUATION: 6 p.m. PRIMARY CARE PROVIDER: Nell Marie NP. CONSULTING PUNCH PRESS FEEDER: Dr. Mackey. CHIEF COMPLAINT: "I don't feel well." HISTORY OF PRESENT ILLNESS: Mrs. Beck is a 78-year-old lady with a past medical history of type 2 diabetes, hyperlipidemia, hypertension, GERD, osteoarthritis, who presented to the emergency room with complaints of malaise, nausea, dry heaving, and confusion. The patient is able to give some information about her symptoms. Her granddaughter is present at bedside and can give some information too, but the clinical information is limited due to the patient's mild confusion and the fact that the granddaughter is not really involved in the patient's medical care. As far as I can get information, the patient went to see Nell Marie about 10 days ago with complaints of back pain. She states that she was prescribed naproxen and Voltaren gel for the pain that she started to use. After that, the history is difficult. The patient states that she started to feel weak, had nausea, multiple episodes of dry heaves, and was more confused. Her granddaughter took her to an appointment at [facility] last week, but did not go in the office for the visit, she just dropped the patient there and took the patient home, so she does not know exactly what the conversation was. The patient had a blood test done on 11/14/18 and there was a report of a creatinine of 4, but as far as the patient knows, she was not called with any abnormal results, but the granddaughter makes it clear that the patient is confused. Today, she was weaker, was unable to keep any food or fluid down, and for that reason she was brought into the emergency room. She complains of constipation for the past 2 days and also noted that she was not really making urine prior to coming to the emergency room. She denies fever, chills, chest pain, palpitation, or shortness of breath. PAST MEDICAL HISTORY: 1. Type 2 diabetes. 2. Hyperlipidemia. 3. Hypertension. 4. GERD. 5. Osteoarthritis. 6. Admission to ICU in December 2017 with tooth infection with infection spreading to the soft tissues of the neck, requiring ICU stay. MEDICATIONS: 1. Cetirizine 10 mg p.o. daily. 2. Codeine/guaifenesin 10 mL p.o. q.4 hours p.r.n. cough. 3. Cyclobenzaprine 10 mg p.o. t.i.d. as needed for muscle spasms. 4. Voltaren gel, apply topical 4 times a day as needed for pain. 5. Furosemide 10 mg p.o. daily. 6. Gabapentin 300 mg p.o. t.i.d. 7. Hydrocodone/acetaminophen 5/325 mg 1 tablet p.o. q.6 hours. 8. Multivitamin 1 tablet p.o. daily. 9. Naproxen 500 mg p.o. b.i.d. with meals as needed for pain. 10. Omeprazole 40 mg p.o. daily. 11. Pravastatin 80 mg p.o. daily. ALLERGIES: To MOXIFLOXACIN, CLAVULANIC ACID, both medications caused vomiting. FAMILY HISTORY: The patient's father at age of 72 secondary to aortic aneurysm. SOCIAL HISTORY: The patient denies tobacco, alcohol, or drug use. Surrogate decision maker is her son, Thad Beck, phone number is [phone]. REVIEW OF SYSTEMS: A 14-point review of systems was performed and all the pertinent negative and positive findings are in the HPI with the limitations due to the patient's confusion and the fact that her granddaughter is not really involved in her medical care. PHYSICAL EXAMINATION GENERAL: The patient is an elderly lady, appears older than stated age, lying in the stretcher, in no acute distress. VITAL SIGNS: Temperature 98.3, heart rate is 97, respiratory rate is 17, oxygen saturation is 98% on room air, blood pressure is 129/63. HEENT: Pupils are equal, very dry mucous membranes with uremic breath. CHEST: Breath sounds bilaterally with no added sounds. CVS: Normal S1, S2. Regular rate and rhythm. ABDOMEN: Soft, nontender, nondistended. There are no palpable masses. The bladder does not appear to be distended. Bowel sounds are present. EXTREMITIES: There is trace bilateral lower extremity edema. NEUROLOGIC: The patient is alert, oriented to x2, to self and place. She is able to move all 4 extremities. DIAGNOSTIC STUDIES/LAB DATA: The patient had a CBC that showed a WBC of 22.2, hemoglobin of 9, hematocrit of 26, platelets of 140 with 93% neutrophils. Chemistry showed a sodium of 124, potassium of 4.6, chloride of 91, bicarb of 15 , anion gap of 18, BUN of 89, creatinine of 7.7, glucose of 63, calcium of 8.1. LFTs showed a total bilirubin of 2.7, AST of 27, ALT of 28, alk phos of 141 with troponin of 0.06. CRP is 317, BNP is 656. Urinalysis is pending at the time of this dictation. EKG done 11/18/18 at 1547 showed sinus rhythm at 92 beats per minute with no acute ischemic changes. ASSESSMENT AND PLAN: Ms. Beck is a 78-year-old lady with a past medical history of type 2 diabetes, hyperlipidemia, hypertension, gastroesophageal reflux disease, osteoarthritis, who presents to the emergency room with complaints of malaise, nausea, vomiting, found to have acute kidney injury, likely in the setting of NSAID use and dehydration. 1. Acute kidney injury. The last creatinine in our system was 0.61 in December 2017 and there is a report of creatinine of 4 done at [facility] last week. Her acute kidney injury is likely secondary to NSAID use and also dehydration, as she appears to be very dehydrated at this time. She will receive IV hydration. We will buffer her metabolic acidosis with sodium bicarb and we will monitor her urine output. A [place] catheter was already placed in the emergency room. Nephrology consultation was requested with Dr. Mackey. He is going to perform a renal ultrasound to see if there is any anatomical abnormality that could also justify her renal failure, but as stated above, this is likely secondary to NSAIDs and dehydration. 2. Mild bilirubin elevation. The patient has no right upper quadrant pain on palpation. She will have an abdominal ultrasound that will show her kidneys and bladder, but we will also look at her liver and gallbladder. We will monitor her LFTs. 3. Type 2 diabetes. The patient is not sure what medication she is truly taking at home and she was hypoglycemic in the emergency room. She will have fingersticks q.4 and she will receive glucose as needed. I will not put any insulin sliding scale at this time, as with her low glucose this is not necessary. We will get records from her PCP to clarify what medications she is really taking at home. 4. DVT prophylaxis. The patient has a score of 3 on the DVT prophylaxis assessment guide and she will be started on subcutaneous heparin. 5. Code status is full. TIME SPENT: Approximately 60 minutes was spent with the patient and granddaughter interview, medical records review, physical examination to complete this admission; more than half of this time was spent [id number] with the patient and coordination of care. [id number]/[facility] #: [id number] XAVI
[2018-11-19] MEDS ORDERED: Morphine INJ* 2 MG/ML 1 ML SYRINGE (TWO MG - NEW SYRINGE VERSION) IV ONE (00:35)
[2018-11-19] MEDS: Sodium Bicarbonate (ANTACID)* 650 MG TAB PO SCH ×3 (06:37→17:21)
[2018-11-19] MEDS: Heparin VIAL(*) 5000 UNITS/ML VIAL (FIVE THOUSAND) SUBCUT SCH ×3 (06:37→21:39)
[2018-11-19] MEDS: Lactated Ringers 1000 ML Bag* 1,000 ML IV SCH ×3 (06:44→16:36)
[2018-11-19 07:01] LABS: Hematocrit 22 % (35-47); Hemoglobin 7.8 g/dL (12.0-16.0); Mean Corpuscular HGB Conc 35 g/dL (31-36); Mean Corpuscular Hemoglobin 29 pg (27-31); Mean Corpuscular Volume 84 fL (80-97); Platelet Count 140 10^3/uL (150-450); Red Blood Count 2.66 10^6 /uL (3.70-4.87); Red Cell Distribution Width 17 % (10-15); White Blood Count 18.5 10^3/uL (3.5-10.8)
[2018-11-19 07:18] LABS: ALT 22 U/L (7-52); AST 27 U/L (13-39); Albumin 2.4 g/dL (3.2-5.2); Albumin/Globulin Ratio 1.1 (1-3); Alkaline Phosphatase 618 U/L (34-104); Anion Gap 17 mmol/L (2-11); BUN/Creatinine Ratio 11.6 (8-20); Blood Urea Nitrogen 87 mg/dL (6-24); CO2 Carbon Dioxide 15 mmol/L (22-32); Calcium 7.6 mg/dL (8.6-10.3); Chloride 96 mmol/L (101-111); EGFR African American 6.4 (>60); EGFR Non-African American 5.3 (>60); Globulin 2.2 g/dL (2-4); Glucose 91 mg/dL (70-100); Potassium 4.5 mmol/L (3.5-5.0); Sodium 128 mmol/L (135-145); Total Protein 4.6 g/dL (6.4-8.9)
[2018-11-19 09:26] LABS: ABS Lymphocytes 0.8 10^3/ul (1.0-4.8); ABS Monocytes 0.7 10^3/ul (0-0.8); Eosinophil % 0.2 %; Lymphocyte % 4.3 %
[2018-11-19 14:54] LABS: Hematocrit for Retic CNT 22 % (35-47); Immature Retic Fraction 0.51; RBC Retic Count 2.63 10^6/uL (3.70-4.87)
[2018-11-19 15:19] LABS: Ferritin 381.1 ng/mL (11-307)
[2018-11-19 15:23] LABS: Folate > 20.00 ng/mL (>3.99)
[2018-11-19 15:26] LABS: % Iron Saturation 20 % (15-55); Iron 39 ug/dL (50-212); Total Iron Binding Capacity 199 mcg/dL (250-450); Transferrin 142 mg/dL (203-362)
[2018-11-19] MEDS: Pantoprazole TAB * 40 MG TAB PO SCH (16:31)
--- NOTE | 2018-11-19 17:00 | PN ---
Subjective Date of Service: 11/19/18 Interval History: Resting in bed, alert to verbal , skin is pale, mucous membranes are dry. Patient reports that she is been having trouble eating because she has had abdominal for 1 month. States that she also started taking naproxen 1 month ago. Patient denies diarrhea or black or tarry stools, report constipation Denies chest pain or shortness of breath. Reports only urinating small amount for several weeks, reports today that she has not had a bowel movement in 2 weeks. Labs and urine reviewed, initially abnormalities thought to be related to acute renal failure- patient does appear to have a UTI with positive for e-coli in the urine culture. c/o upper abd pain/ epigastric pain today tender to touch, will get CT of the abd pain pelvis Family History: Unchanged from Admission Social History: Unchanged from Admission Past Medical History: Unchanged from Admission Objective Active Medications: Acetaminophen (Tylenol Tab*) 650 mg PO Q6H PRN PRN Reason: Mild pain/fever>100.4 Last Admin: 11/18/18 21:09 Dose: 650 mg Dextrose (Dextrose 50% Vial 50 Ml*) 50 ml IV PUSH .FOR FS < 60 - SS PRN PRN Reason: FS < 60 Last Admin: 11/18/18 21:09 Dose: 50 ml Heparin Sodium (Porcine) (Heparin Vial(*)) 5,000 units SUBCUT Q8HR [facility] Last Admin: 11/19/18 13:45 Dose: 5,000 units Lactated Ringer's (Lactated Ringers 1000 Ml Bag*) 1,000 mls @ 150 mls/hr IV PER RATE [facility] Last Admin: 11/19/18 16:36 Dose: 150 mls/hr Ceftriaxone Sodium 1 gm/ (Sodium Chloride) 50 mls @ 100 mls/hr IVPB Q24H [facility] Pantoprazole Sodium (Protonix Tab*) 40 mg PO Q24H [facility] Last Admin: 11/19/18 16:31 Dose: 40 mg Prochlorperazine Edisylate (Compazine Inj*) 5 mg IV Q8H PRN PRN Reason: NAUSEA/VOMITING Sodium Bicarbonate (Sodium Bicarbonate (Antacid)*) 650 mg PO Q6HR [facility] Last Admin: 11/19/18 13:45 Dose: 650 mg Vital Signs - 8 hr 11/19/18 11:30 Respiratory 17 Rate Oxygen Devices in Use Now: None Appearance: appears fatigued and weak, pale Eyes: No Scleral Icterus Ears/Nose/Mouth/Throat: Clear Oropharnyx, - - mucous membranes dry Neck: NL Appearance and Movements; NL JVP, Trachea Midline Respiratory: Symmetrical Chest Expansion and Respiratory Effort, Clear to Auscultation Cardiovascular: NL Sounds; No Murmurs; No JVD Abdominal: NL Sounds; No Tenderness; No Distention Extremities: No Clubbing, Cyanosis, - - mild +1 pitting edema to lower leg bilat , pedal pulses +2 bilat Skin: No Rash or Ulcers Neurological: Alert and Oriented x 3 Nutrition: Taking PO's Result Diagrams: 11/19/18 06:22 11/19/18 06:22 Additional Lab and Data: Lab Results 11/18/18 11/18/18 11/18/18 Range/Units 15:15 15:28 15:28 WBC 22.2 H (3.5-10.8) 10^3/uL RBC 3.07 L (3.70-4.87) 10^6 /uL Hgb 9.0 L (12.0-16.0) g/dL Hct 26 L (35-47) % MCV 84 (80-97) fL MCH 29 (27-31) pg MCHC 35 (31-36) g/dL RDW 17 H (10-15) % Plt Count 140 L (150-450) 10^3/uL MPV 8.1 (7.4-10.4) fL Neut % (Auto) Pending Lymph % (Auto) Pending [place] % (Auto) Pending Eos % (Auto) Pending Baso % (Auto) Pending Absolute Neuts (auto) Pending Absolute Lymphs (auto) Pending Absolute Monos (auto) Pending Absolute Eos (auto) Pending Absolute Basos (auto) Pending Absolute Nucleated RBC Pending Nucleated RBC % Pending Sodium 124 L (135-145) mmol/L Potassium 4.6 (3.5-5.0) mmol/L Chloride 91 L (101-111) mmol/L Carbon Dioxide 15 L (22-32) mmol/L Anion Gap 18 H (2-11) mmol/L BUN 89 H (6-24) mg/dL Creatinine 7.76 H (0.51-0.95) mg/dL Est GFR ( Amer) 6.1 (>60) Est GFR (Non-Af Amer) 5.1 (>60) BUN/Creatinine Ratio 11.5 (8-20) Glucose 63 L (70-100) mg/dL POC Glucose (mg/dL) 62 L (70-100) mg/dL Calcium 8.1 L (8.6-10.3) mg/dL Total Bilirubin 2.70 H (0.2-1.0) mg/dL AST 27 (13-39) U/L ALT 28 (7-52) U/L Alkaline Phosphatase 541 H (34-104) U/L Troponin I 0.06 H* (<0.04) ng/mL C-Reactive Protein 317.64 H (<8.01) mg/L B-Natriuretic Peptide (<=100) pg/mL Total Protein 5.8 L (6.4-8.9) g/dL Albumin 2.9 L (3.2-5.2) g/dL Globulin 2.9 (2-4) g/dL Albumin/Globulin Ratio 1.0 (1-3) // Range/Units 15:28 WBC (3.5-10.8) 10^3/uL RBC (3.70-4.87) 10^6 /uL Hgb (12.0-16.0) g/dL Hct (35-47) % MCV (80-97) fL MCH (27-31) pg MCHC (31-36) g/dL RDW (10-15) % Plt Count (150-450) 10^3/uL MPV (7.4-10.4) fL Neut % (Auto) Lymph % (Auto) [place] % (Auto) Eos % (Auto) Baso % (Auto) Absolute Neuts (auto) Absolute Lymphs (auto) Absolute Monos (auto) Absolute Eos (auto) Absolute Basos (auto) Absolute Nucleated RBC Nucleated RBC % Sodium (135-145) mmol/L Potassium (3.5-5.0) mmol/L Chloride (101-111) mmol/L Carbon Dioxide (22-32) mmol/L Anion Gap (2-11) mmol/L BUN (6-24) mg/dL Creatinine (0.51-0.95) mg/dL Est GFR ( Amer) (>60) Est GFR (Non-Af Amer) (>60) BUN/Creatinine Ratio (8-20) Glucose (70-100) mg/dL POC Glucose (mg/dL) (70-100) mg/dL Calcium (8.6-10.3) mg/dL Total Bilirubin (0.2-1.0) mg/dL AST (13-39) U/L ALT (7-52) U/L Alkaline Phosphatase (34-104) U/L Troponin I (<0.04) ng/mL C-Reactive Protein (<8.01) mg/L B-Natriuretic Peptide 656 H (<=100) pg/mL Total Protein (6.4-8.9) g/dL Albumin (3.2-5.2) g/dL Globulin (2-4) g/dL Albumin/Globulin Ratio (1-3) Microbiology and Other Data: Microbiology 11/18/18 17:30 Urine Culture - Preliminary Urine Escherichia Coli Assess/Plan/Problems-Billing Assessment: Mrs. Beck is a 78-year-old lady with a past medical history of type 2 diabetes, hyperlipidemia, hypertension, GERD, osteoarthritis, who presented to the emergency room with complaints of malaise, nausea, dry heaving, and confusion. Found to have acute renal failure and leukocytosis and electrolyte abnormalities. - Patient Problems (1) Leukocytosis Current Visit: Yes Status: Acute Code(s): D72.829 - ELEVATED WHITE BLOOD CELL COUNT, UNSPECIFIED SNOMED Code(s): 438024960 Comment: presented with WBc's 22.2 down to 18.2 today No source on admission - urine cultre today reveals - positive for e-coli - will start ceftriaxone - c/o abd pain today - will get CT of the abd/pelvis with oral contrast (2) MICHEAL (acute kidney injury) Current Visit: Yes Status: Acute Code(s): N17.9 - ACUTE KIDNEY FAILURE, UNSPECIFIED SNOMED Code(s): 43904583 Comment: suspect this is multifactoral - with combination of dehydration, NSAID use, lisinpril and lasix use complicated by UTI Creatinine 7.5 today trending down -nephrology consulted - recommended IVF, CT abd/ pelvis - will continue Bicarb as ordered - avoid nephrotoxic medications (3) UTI (urinary tract infection) Current Visit: Yes Status: Acute Comment: - reports small amt of urine - no pain or burning - urine culture positive for e-coli- will start ceftriaxone - lambert in place - draining cloudy yellow urine (4) Abdominal pain Current Visit: Yes Status: Acute Code(s): R10.9 - UNSPECIFIED ABDOMINAL PAIN SNOMED Code(s): 85507035 Comment: c/o upper epigastric pain to mid abd pain - will get Ct abd/ pelvis- pending (5) Confusion Current Visit: Yes Status: Acute Code(s): R41.0 - DISORIENTATION, UNSPECIFIED SNOMED Code(s): 932235015 Comment: suspect this is related to toxic metabolic encephalopathy likely related to MICHEAL and UTI - will conitnue as per above plan - IVF/ antibiotics (6) Anemia Current Visit: Yes Status: Acute Code(s): D64.9 - ANEMIA, UNSPECIFIED SNOMED Code(s): 692539005 Comment: Suspect this is related to chronic disease - will add iron, TIBC, folate, b12 , retic count - stool for occult- if positive will consult GI (7) Hyponatremia Current Visit: Yes Status: Acute Code(s): E87.1 - HYPO-OSMOLALITY AND HYPONATREMIA SNOMED Code(s): 42249073 Comment: suspect this is related to dehydration will continue IVF (8) GERD (gastroesophageal reflux disease) Current Visit: Yes Status: Acute Code(s): K21.9 - GASTRO-ESOPHAGEAL REFLUX DISEASE WITHOUT ESOPHAGITIS SNOMED Code(s): 166579586 Comment: c/o upper epigastric pain - recently taking NSAID- will place on protonix (9) DM type 2 (diabetes mellitus, type 2) Current Visit: No Status: Acute Comment: fingersticks Q4H (10) HTN (hypertension) Current Visit: No Status: Acute Code(s): I10 - ESSENTIAL (PRIMARY) HYPERTENSION SNOMED Code(s): 77111656 Comment: cont Lisinopril Mildly elevated today. cont to monitor. (11) DVT prophylaxis Current Visit: No Status: Acute Code(s): DGF5016 - SNOMED Code(s): 922492706 Comment: heparin sc. (12) Full code status Current Visit: Yes Status: Acute Code(s): Z78.9 - OTHER SPECIFIED HEALTH STATUS SNOMED Code(s): 864701686 Status and Disposition: inpatient
[2018-11-19] MEDS: cefTRIAXone(*) 1 GM in NS 0.9% 50 ML* 50 ML IVPB SCH (17:16)
[2018-11-19] MEDS: Acetaminophen TAB* 325 MG PO PRN (17:53)
[2018-11-19] MEDS: PROCHLORPERAZINE INJ 5 MG/ML 2 ML VIAL IV PRN (17:53)
[2018-11-20] MEDS: Sodium Bicarbonate (ANTACID)* 650 MG TAB PO SCH ×4 (00:16→19:12)
[2018-11-20] MEDS: Lactated Ringers 1000 ML Bag* 1,000 ML IV SCH ×2 (03:57→22:38)
[2018-11-20 06:42] LABS: Hematocrit 20 % (35-47); Hemoglobin 6.9 g/dL (12.0-16.0); Mean Corpuscular HGB Conc 34 g/dL (31-36); Mean Corpuscular Hemoglobin 29 pg (27-31); Mean Corpuscular Volume 83 fL (80-97); Mean Platelet Volume 8.2 fL (7.4-10.4); Platelet Count 197 10^3/uL (150-450); Red Blood Count 2.43 10^6 /uL (3.70-4.87); Red Cell Distribution Width 17 % (10-15); White Blood Count 27.3 10^3/uL (3.5-10.8)
[2018-11-20 06:48] LABS: INR 1.34 (0.82-1.09)
[2018-11-20 06:59] LABS: BUN/Creatinine Ratio 12.1 (8-20); Calcium 7.6 mg/dL (8.6-10.3); EGFR African American 7.2 (>60); EGFR Non-African American 5.9 (>60); Potassium 4.6 mmol/L (3.5-5.0)
--- NOTE | 2018-11-20 08:44 | CONS ---
CC: Nell Marie NP * NEPHROLOGY CONSULTATION: DATE OF CONSULT: 11/20/18 HISTORY OF PRESENT ILLNESS: Mrs. Beck is a 78-year-old female who presented with a chief complaint of generalized malaise. At the present time, she has mid epigastric abdominal discomfort and some nausea. She denies chest pain, shortness of breath. She had been having some back pain which is a longstanding issue, but was more acute recently. She had been started on some topical Voltaren as well as Naprosyn. PAST MEDICAL HISTORY: Her previous medical history is significant for diabetes mellitus type 2. She has history of hypertension and hyperlipidemia, gastroesophageal reflux disease, osteoarthritis. MEDICATIONS: Include: 1. Cetirizine 10 mg daily. 2. Codeine with guaifenesin q.4 hours p.r.n. for cough. 3. Cyclobenzaprine 10 mg t.i.d. p.r.n. for muscle spasms. 4. Voltaren gel 4 times a day. 5. Furosemide 10 mg daily. 6. Gabapentin 300 mg t.i.d. 7. Hydrocodone with acetaminophen 5/325 one daily. 8. Multivitamins 1 daily. 9. Naproxen 500 mg b.i.d. with meals. 10. Omeprazole 40 mg daily. 11. Pravastatin 80 mg daily. ALLERGIES: She is allergic to MOXIFLOXACIN, CLAVULANIC ACID. SOCIAL HISTORY: She does not use tobacco or alcohol. PHYSICAL EXAM: She is an elderly white female who appeared to be fairly comfortable. Her blood pressure was 139/50 with a pulse of 99, respirations 18. She is afebrile. Her pupils were reactive to light. The extraocular muscles are intact. She has dry mucous membranes. The neck veins could not be seen. The chest was clear. The heart revealed a regular rhythm without murmurs. The abdomen is soft. There was minimal epigastric tenderness. Bowel sounds are positive. There is no organomegaly. Bones, joints, extremities revealed no cyanosis, clubbing, or edema. Neurologic: She is alert and oriented. Moves all 4 extremities. DIAGNOSTIC STUDIES/LAB DATA: Review of her laboratory studies reveals a white count of 18.5, a hemoglobin of 7.8, hematocrit of 22, platelets of 140,000. Sodium of 130, potassium 4.6, chloride 99, carbon dioxide 18, BUN of 87, creatinine of 7.5. Her maximum creatinine at the time of admission was 7.76. Magnesium is a little low at 1.5, calcium of 7.6 with an albumin of 2.4. Her urinalysis revealed a specific gravity of 1.006 with 2+ protein, 3+ blood, 3+ leukocyte esterase, 3+ wbc's, 1+ rbc's. IMPRESSION AND PLAN: Acute renal injury. This is likely on the basis of nonsteroidal antiinflammatory drugs in a woman who is relatively dehydrated and has a history of diabetes mellitus. With proper hydration, I would hope that this would resolve down to her baseline over the new few days. She is more anemic than I would have anticipated for an acute renal injury and there should be an evaluation for possibility of blood loss; obviously I would check stool for occult blood. I did discuss the case at length with Kimmy Braxton NP. [id number]/[facility] #: [id number] MTDD
[2018-11-20 09:11] LABS: ABS Lymphocytes 0.9 10^3/ul (1.0-4.8); ABS Monocytes 1.2 10^3/ul (0-0.8); ABS Neutrophils 25.1 10^3/ul (1.5-7.7); Eosinophil % 0.1 %; Lymphocyte % 3.2 %
[2018-11-20] MEDS: Pantoprazole TAB * 40 MG TAB PO SCH (14:33)
[2018-11-20] MEDS: PROCHLORPERAZINE INJ 5 MG/ML 2 ML VIAL IV PRN (16:36)
--- NOTE | 2018-11-20 17:13 | PN ---
Subjective Date of Service: 11/20/18 Interval History: Patient seen and examined.. Appears confused, did not remember seeing Dr. Mackey and cannot tell me who the president is. She is alert to person and place. Seems tired and somewhat drowsy. Denies chest apin, no abdominal pain, no n/v. Denies fevers or chills. No further complaints. Family History: Unchanged from Admission Social History: Unchanged from Admission Past Medical History: Unchanged from Admission Objective Active Medications: Acetaminophen (Tylenol Tab*) 650 mg PO Q6H PRN PRN Reason: Mild pain/fever>100.4 Last Admin: 11/19/18 17:53 Dose: 650 mg Dextrose (Dextrose 50% Vial 50 Ml*) 50 ml IV PUSH .FOR FS < 60 - SS PRN PRN Reason: FS < 60 Last Admin: 11/18/18 21:09 Dose: 50 ml Ceftriaxone Sodium 1 gm/ (Sodium Chloride) 50 mls @ 100 mls/hr IVPB Q24H [facility] Last Admin: 11/19/18 17:16 Dose: 100 mls/hr Lactated Ringer's (Lactated Ringers 1000 Ml Bag*) 1,000 mls @ 100 mls/hr IV PER RATE [facility] Last Admin: 11/20/18 03:57 Dose: 100 mls/hr Pantoprazole Sodium (Protonix Tab*) 40 mg PO Q24H [facility] Last Admin: 11/20/18 14:33 Dose: 40 mg Prochlorperazine Edisylate (Compazine Inj*) 5 mg IV Q8H PRN PRN Reason: NAUSEA/VOMITING Last Admin: 11/20/18 16:36 Dose: 5 mg Sodium Bicarbonate (Sodium Bicarbonate (Antacid)*) 650 mg PO Q6HR [facility] Last Admin: 11/20/18 13:18 Dose: 650 mg Vital Signs - 8 hr 11/20/18 11:50 Temperature 98 F Pulse Rate 83 Respiratory 16 Rate Blood Pressure 153/78 (mmHg) O2 Sat by Pulse 99 Oximetry Oxygen Devices in Use Now: None Appearance: alert, fatigued Eyes: No Scleral Icterus, PERRLA Ears/Nose/Mouth/Throat: - - dry oral mucosa Neck: NL Appearance and Movements; NL JVP, Trachea Midline Respiratory: Symmetrical Chest Expansion and Respiratory Effort, Clear to Auscultation Cardiovascular: NL Sounds; No Murmurs; No JVD, RRR, No Edema Abdominal: NL Sounds; No Tenderness; No Distention Extremities: No Edema, No Clubbing, Cyanosis Skin: No Rash or Ulcers Neurological: - - A&Ox2 Lines/Tubes/Other Access: Clean, Dry and Intact [place] Nutrition: Taking PO's Result Diagrams: 11/20/18 06:15 11/20/18 06:15 Additional Lab and Data: Lab Results 11/18/18 11/18/18 11/18/18 Range/Units 15:15 15:28 15:28 WBC 22.2 H (3.5-10.8) 10^3/uL RBC 3.07 L (3.70-4.87) 10^6 /uL Hgb 9.0 L (12.0-16.0) g/dL Hct 26 L (35-47) % MCV 84 (80-97) fL MCH 29 (27-31) pg MCHC 35 (31-36) g/dL RDW 17 H (10-15) % Plt Count 140 L (150-450) 10^3/uL MPV 8.1 (7.4-10.4) fL Neut % (Auto) Pending Lymph % (Auto) Pending [place] % (Auto) Pending Eos % (Auto) Pending Baso % (Auto) Pending Absolute Neuts (auto) Pending Absolute Lymphs (auto) Pending Absolute Monos (auto) Pending Absolute Eos (auto) Pending Absolute Basos (auto) Pending Absolute Nucleated RBC Pending Nucleated RBC % Pending Sodium 124 L (135-145) mmol/L Potassium 4.6 (3.5-5.0) mmol/L Chloride 91 L (101-111) mmol/L Carbon Dioxide 15 L (22-32) mmol/L Anion Gap 18 H (2-11) mmol/L BUN 89 H (6-24) mg/dL Creatinine 7.76 H (0.51-0.95) mg/dL Est GFR ( Amer) 6.1 (>60) Est GFR (Non-Af Amer) 5.1 (>60) BUN/Creatinine Ratio 11.5 (8-20) Glucose 63 L (70-100) mg/dL POC Glucose (mg/dL) 62 L (70-100) mg/dL Calcium 8.1 L (8.6-10.3) mg/dL Total Bilirubin 2.70 H (0.2-1.0) mg/dL AST 27 (13-39) U/L ALT 28 (7-52) U/L Alkaline Phosphatase 541 H (34-104) U/L Troponin I 0.06 H* (<0.04) ng/mL C-Reactive Protein 317.64 H (<8.01) mg/L B-Natriuretic Peptide (<=100) pg/mL Total Protein 5.8 L (6.4-8.9) g/dL Albumin 2.9 L (3.2-5.2) g/dL Globulin 2.9 (2-4) g/dL Albumin/Globulin Ratio 1.0 (1-3) 11/18/18 Range/Units 15:28 WBC (3.5-10.8) 10^3/uL RBC (3.70-4.87) 10^6 /uL Hgb (12.0-16.0) g/dL Hct (35-47) % MCV (80-97) fL MCH (27-31) pg MCHC (31-36) g/dL RDW (10-15) % Plt Count (150-450) 10^3/uL MPV (7.4-10.4) fL Neut % (Auto) Lymph % (Auto) [place] % (Auto) Eos % (Auto) Baso % (Auto) Absolute Neuts (auto) Absolute Lymphs (auto) Absolute Monos (auto) Absolute Eos (auto) Absolute Basos (auto) Absolute Nucleated RBC Nucleated RBC % Sodium (135-145) mmol/L Potassium (3.5-5.0) mmol/L Chloride (101-111) mmol/L Carbon Dioxide (22-32) mmol/L Anion Gap (2-11) mmol/L BUN (6-24) mg/dL Creatinine (0.51-0.95) mg/dL Est GFR ( Amer) (>60) Est GFR (Non-Af Amer) (>60) BUN/Creatinine Ratio (8-20) Glucose (70-100) mg/dL POC Glucose (mg/dL) (70-100) mg/dL Calcium (8.6-10.3) mg/dL Total Bilirubin (0.2-1.0) mg/dL AST (13-39) U/L ALT (7-52) U/L Alkaline Phosphatase (34-104) U/L Troponin I (<0.04) ng/mL C-Reactive Protein (<8.01) mg/L B-Natriuretic Peptide 656 H (<=100) pg/mL Total Protein (6.4-8.9) g/dL Albumin (3.2-5.2) g/dL Globulin (2-4) g/dL Albumin/Globulin Ratio (1-3) Microbiology and Other Data: Microbiology 11/18/18 17:30 Urine Culture - Preliminary Urine Escherichia Coli Assess/Plan/Problems-Billing Assessment: Mrs. Beck is a 78-year-old lady with a past medical history of type 2 diabetes, hyperlipidemia, hypertension, GERD, osteoarthritis, who presented to the emergency room with complaints of malaise, nausea, dry heaving, and confusion. Found to have acute renal failure and leukocytosis and electrolyte abnormalities. - Patient Problems (1) MICHEAL (acute kidney injury) Code(s): N17.9 - ACUTE KIDNEY FAILURE, UNSPECIFIED SNOMED Code(s): 07389441 Comment: - Multifactoral, combined dehydration, NSAID use, lisinpril and lasix use and complicated by UTI - Creatinine 6.79, continues to trend down - Nephrology consult appreciated - CT abd/pelvis with no acute findings - Continue IVF and sodium bicarb - avoid nephrotoxic medications (2) Gram-negative bacteremia Code(s): R78.81 - BACTEREMIA SNOMED Code(s): 418504218986 Comment: - Gram negative bacilli in blood cultures from 11/19/2018 - In presence of eColi UTI - Continue ceftriaxone and follow cultures and sensitivities - Confused but does not appear toxic, monitor closely (3) Abdominal pain Code(s): R10.9 - UNSPECIFIED ABDOMINAL PAIN SNOMED Code(s): 43610546 Comment: - c/o upper epigastric pain to mid abd pain - Heme positive stool and low H&H with hx of GERD and NSAID use, constellation of findings consistent with UGIB - Change to protonix IV, will keep NPO after midnight and consult GI in AM for possible EGD tomorrow (4) Anemia Code(s): D64.9 - ANEMIA, UNSPECIFIED SNOMED Code(s): 638758789 Comment: - May be ACD, however stool is heme positive - GI consulted, changed to IV protonix (5) Confusion Code(s): R41.0 - DISORIENTATION, UNSPECIFIED SNOMED Code(s): 311990590 Comment: - Toxic metabolic encephalopathy likely related to MICHEAL, UTI, bacteremia and UGIB - Continue IVF, atbx and supportive care (6) GERD (gastroesophageal reflux disease) Code(s): K21.9 - GASTRO-ESOPHAGEAL REFLUX DISEASE WITHOUT ESOPHAGITIS SNOMED Code(s): 809113880 Comment: - Concerned given NSAID use, and low H&H and heme pos stool - Changed to IV protonix (7) Hyponatremia Code(s): E87.1 - HYPO-OSMOLALITY AND HYPONATREMIA SNOMED Code(s): 02252561 Comment: - Hypovolemic hyponatremia 2/2 acute dehydration - Continue IVNS (8) Leukocytosis Code(s): D72.829 - ELEVATED WHITE BLOOD CELL COUNT, UNSPECIFIED SNOMED Code(s) : 692895359 Comment: - presented with WBc's 22.2 down to 18.2 yesterday and increased to >27 again today - likley increase 2/2 to bacteremia and GIB - Monitor temps and labs (9) UTI (urinary tract infection) Comment: - Urine culture positive for e-coli, continue ceftriaxone - [place] in place - draining cloudy yellow urine (10) DM type 2 (diabetes mellitus, type 2) Comment: - fingersticks Q4H (11) DVT prophylaxis Code(s): GBU4000 - SNOMED Code(s): 161152019 Comment: - SCDs only in presence of anemia and likely GIB (12) Full code status Code(s): Z78.9 - OTHER SPECIFIED HEALTH STATUS SNOMED Code(s): 273540393 Status and Disposition: inpatient, guarded.
[2018-11-20] MEDS: cefTRIAXone(*) 1 GM in NS 0.9% 50 ML* 50 ML IVPB SCH (19:12)
[2018-11-20 20:45] LABS: Hematocrit 22 % (35-47); Hemoglobin 7.4 g/dL (12.0-16.0)
--- NOTE | 2018-11-20 22:24 | PN ---
Progress Note - Progress Note Date of Service: 11/20/18 Note: Pt has asymptomatic 7 beats V. Tach. Mg IV given, Mg ordered for labs in aM. Cont telem
[2018-11-20] MEDS ORDERED: Magnesium Sulfate 2 GM IV* 2 GM/50 ML BAG IVPB ONE (22:30)
[2018-11-21] MEDS: PROCHLORPERAZINE INJ 5 MG/ML 2 ML VIAL IV PRN ×2 (01:18→21:44)
[2018-11-21] MEDS: Sodium Bicarbonate (ANTACID)* 650 MG TAB PO SCH ×4 (03:38→16:21)
[2018-11-21] MEDS: Pantoprazole IV* 40 MG IV SCH (08:07)
[2018-11-21 08:14] LABS: BUN/Creatinine Ratio 13.6 (8-20); Calcium 8.1 mg/dL (8.6-10.3); EGFR African American 8.1 (>60); EGFR Non-African American 6.7 (>60); Magnesium 2.1 mg/dL (1.9-2.7); Potassium 4.5 mmol/L (3.5-5.0)
[2018-11-21 12:44] LABS: Hematocrit 22 % (35-47); Hemoglobin 7.4 g/dL (12.0-16.0); Mean Corpuscular HGB Conc 34 g/dL (31-36); Mean Corpuscular Hemoglobin 29 pg (27-31); Mean Corpuscular Volume 84 fL (80-97); Mean Platelet Volume 7.7 fL (7.4-10.4); Platelet Count 279 10^3/uL (150-450); Red Blood Count 2.57 10^6 /uL (3.70-4.87); Red Cell Distribution Width 17 % (10-15); White Blood Count 22.1 10^3/uL (3.5-10.8)
[2018-11-21 13:01] LABS: Albumin 2.5 g/dL (3.2-5.2); Albumin/Globulin Ratio 0.9 (1-3); BUN/Creatinine Ratio 13.4 (8-20); Calcium 8.3 mg/dL (8.6-10.3); EGFR African American 8.1 (>60); EGFR Non-African American 6.7 (>60); Globulin 2.7 g/dL (2-4); Potassium 4.5 mmol/L (3.5-5.0); Total Bilirubin 1.2 mg/dL (0.2-1.0); Total Protein 5.2 g/dL (6.4-8.9)
[2018-11-21 14:14] LABS: ABS Eosinophils 0.1 10^3/ul (0-0.6); ABS Lymphocytes 0.9 10^3/ul (1.0-4.8); ABS Neutrophils 20.1 10^3/ul (1.5-7.7); Eosinophil % 0.3 %; Lymphocyte % 4.2 %
[2018-11-21 16:07] LABS: INR 1.3 (0.82-1.09)
[2018-11-21] MEDS: cefTRIAXone(*) 1 GM in NS 0.9% 50 ML* 50 ML IVPB SCH (16:24)
--- NOTE | 2018-11-21 18:54 | PN ---
Subjective Date of Service: 11/21/18 Interval History: Patient seen and examined. Remains somewhat confused this AM, had 7 beats self- limited VT overnight. Patient offers no complaints this morning other than shes tired and wonders what "all these tests are". Explained ECHO today and that GI will be seeing her. She denies fever or chills, no pain, no chest pain, no SOB, no abdominal pain or nausea today, but she is a poor historian, it is unclear how reliable her ROS is. Family History: Unchanged from Admission Social History: Unchanged from Admission Past Medical History: Unchanged from Admission Objective Active Medications: Acetaminophen (Tylenol Tab*) 650 mg PO Q6H PRN PRN Reason: Mild pain/fever>100.4 Last Admin: 11/19/18 17:53 Dose: 650 mg Dextrose (Dextrose 50% Vial 50 Ml*) 50 ml IV PUSH .FOR FS < 60 - SS PRN PRN Reason: FS < 60 Last Admin: 11/18/18 21:09 Dose: 50 ml Hydralazine HCl (Apresoline Iv*) 5 mg IV SLOW PU Q6H PRN PRN Reason: SBP >170 DBP >90 Ceftriaxone Sodium 1 gm/ (Sodium Chloride) 50 mls @ 100 mls/hr IVPB Q24H [facility] Last Admin: 11/21/18 16:24 Dose: 100 mls/hr Lactated Ringer's (Lactated Ringers 1000 Ml Bag*) 1,000 mls @ 100 mls/hr IV PER RATE [facility] Last Admin: 11/20/18 22:38 Dose: 100 mls/hr Pantoprazole Sodium (Protonix Iv*) 40 mg IV DAILY [facility] Last Admin: 11/21/18 08:07 Dose: 40 mg Prochlorperazine Edisylate (Compazine Inj*) 5 mg IV Q8H PRN PRN Reason: NAUSEA/VOMITING Last Admin: 11/21/18 01:18 Dose: 5 mg Sodium Bicarbonate (Sodium Bicarbonate (Antacid)*) 650 mg PO Q6HR [facility] Last Admin: 11/21/18 16:21 Dose: Not Given Vital Signs - 8 hr 11/21/18 11/21/18 11:44 15:27 Temperature 98.4 F 98.9 F Pulse Rate 67 91 Respiratory 18 16 Rate Blood Pressure 146/67 182/82 (mmHg) O2 Sat by Pulse 97 92 Oximetry Oxygen Devices in Use Now: None Appearance: alert, NAD Eyes: No Scleral Icterus, PERRLA Ears/Nose/Mouth/Throat: Mucous Membranes Moist Neck: NL Appearance and Movements; NL JVP, Trachea Midline Respiratory: Symmetrical Chest Expansion and Respiratory Effort, Clear to Auscultation Cardiovascular: NL Sounds; No Murmurs; No JVD, RRR, No Edema Abdominal: NL Sounds; No Tenderness; No Distention Extremities: No Edema Skin: No Rash or Ulcers Neurological: - - A&Ox2 Nutrition: Taking PO's Result Diagrams: 11/21/18 12:36 11/21/18 12:36 Additional Lab and Data: Lab Results 11/18/18 11/18/18 11/18/18 Range/Units 15:15 15:28 15:28 WBC 22.2 H (3.5-10.8) 10^3/uL RBC 3.07 L (3.70-4.87) 10^6 /uL Hgb 9.0 L (12.0-16.0) g/dL Hct 26 L (35-47) % MCV 84 (80-97) fL MCH 29 (27-31) pg MCHC 35 (31-36) g/dL RDW 17 H (10-15) % Plt Count 140 L (150-450) 10^3/uL MPV 8.1 (7.4-10.4) fL Neut % (Auto) Pending Lymph % (Auto) Pending [place] % (Auto) Pending Eos % (Auto) Pending Baso % (Auto) Pending Absolute Neuts (auto) Pending Absolute Lymphs (auto) Pending Absolute Monos (auto) Pending Absolute Eos (auto) Pending Absolute Basos (auto) Pending Absolute Nucleated RBC Pending Nucleated RBC % Pending Sodium 124 L (135-145) mmol/L Potassium 4.6 (3.5-5.0) mmol/L Chloride 91 L (101-111) mmol/L Carbon Dioxide 15 L (22-32) mmol/L Anion Gap 18 H (2-11) mmol/L BUN 89 H (6-24) mg/dL Creatinine 7.76 H (0.51-0.95) mg/dL Est GFR ( Amer) 6.1 (>60) Est GFR (Non-Af Amer) 5.1 (>60) BUN/Creatinine Ratio 11.5 (8-20) Glucose 63 L (70-100) mg/dL POC Glucose (mg/dL) 62 L (70-100) mg/dL Calcium 8.1 L (8.6-10.3) mg/dL Total Bilirubin 2.70 H (0.2-1.0) mg/dL AST 27 (13-39) U/L ALT 28 (7-52) U/L Alkaline Phosphatase 541 H (34-104) U/L Troponin I 0.06 H* (<0.04) ng/mL C-Reactive Protein 317.64 H (<8.01) mg/L B-Natriuretic Peptide (<=100) pg/mL Total Protein 5.8 L (6.4-8.9) g/dL Albumin 2.9 L (3.2-5.2) g/dL Globulin 2.9 (2-4) g/dL Albumin/Globulin Ratio 1.0 (1-3) 11/18/18 Range/Units 15:28 WBC (3.5-10.8) 10^3/uL RBC (3.70-4.87) 10^6 /uL Hgb (12.0-16.0) g/dL Hct (35-47) % MCV (80-97) fL MCH (27-31) pg MCHC (31-36) g/dL RDW (10-15) % Plt Count (150-450) 10^3/uL MPV (7.4-10.4) fL Neut % (Auto) Lymph % (Auto) [place] % (Auto) Eos % (Auto) Baso % (Auto) Absolute Neuts (auto) Absolute Lymphs (auto) Absolute Monos (auto) Absolute Eos (auto) Absolute Basos (auto) Absolute Nucleated RBC Nucleated RBC % Sodium (135-145) mmol/L Potassium (3.5-5.0) mmol/L Chloride (101-111) mmol/L Carbon Dioxide (22-32) mmol/L Anion Gap (2-11) mmol/L BUN (6-24) mg/dL Creatinine (0.51-0.95) mg/dL Est GFR ( Amer) (>60) Est GFR (Non-Af Amer) (>60) BUN/Creatinine Ratio (8-20) Glucose (70-100) mg/dL POC Glucose (mg/dL) (70-100) mg/dL Calcium (8.6-10.3) mg/dL Total Bilirubin (0.2-1.0) mg/dL AST (13-39) U/L ALT (7-52) U/L Alkaline Phosphatase (34-104) U/L Troponin I (<0.04) ng/mL C-Reactive Protein (<8.01) mg/L B-Natriuretic Peptide 656 H (<=100) pg/mL Total Protein (6.4-8.9) g/dL Albumin (3.2-5.2) g/dL Globulin (2-4) g/dL Albumin/Globulin Ratio (1-3) Microbiology and Other Data: Microbiology 11/18/18 17:30 Urine Culture - Preliminary Urine Escherichia Coli Assess/Plan/Problems-Billing Assessment: Mrs. Beck is a 78-year-old lady with a past medical history of type 2 diabetes, hyperlipidemia, hypertension, GERD, osteoarthritis, who presented to the emergency room with complaints of malaise, nausea, dry heaving, and confusion. Found to have acute renal failure and leukocytosis and electrolyte abnormalities. - Patient Problems (1) MICHEAL (acute kidney injury) Code(s): N17.9 - ACUTE KIDNEY FAILURE, UNSPECIFIED SNOMED Code(s): 13571076 Comment: - Multifactoral, combined dehydration, NSAID use, lisinpril and lasix use and complicated by UTI - Creatinine 6.79, continues to trend down - Nephrology consult appreciated - CT abd/pelvis with no acute findings - Continue IVF and sodium bicarb - avoid nephrotoxic medications (2) Gram-negative bacteremia Code(s): R78.81 - BACTEREMIA SNOMED Code(s): 463114161280 Comment: - Gram negative bacilli in blood cultures from 11/19/2018, identified as eColi - In presence of eColi UTI - Continue ceftriaxone and follow cultures and sensitivities - Confused but does not appear toxic, monitor closely (3) V-tach Code(s): I47.2 - VENTRICULAR TACHYCARDIA SNOMED Code(s): 80647239 Comment: - Low magnesium on labs and persistent metabolic derangement - Had 2gm mag overnight, mag normal this AM - No further ectopy - ECHO ordered, read pending - Discussed with GI, episode was self limitied and occured during sleep, while patient clearly has a gram negative bacteremia, unless acute findings on ECHO, will likely be able to proceed with EGD, colonoscopy or MRCP without issue or needing further cardiac workup (4) Abdominal pain Code(s): R10.9 - UNSPECIFIED ABDOMINAL PAIN SNOMED Code(s): 83209990 Comment: - c/o upper epigastric pain to mid abd pain - Heme positive stool and low H&H with hx of GERD and NSAID use, constellation of findings consistent with UGIB - Changed to IV protonix - Appreciate recs from GI, MRCP ordered to rule out any occult biliary source given high white count, will still likely need EGD and colonoscopy before discharge (5) Anemia Code(s): D64.9 - ANEMIA, UNSPECIFIED SNOMED Code(s): 894022402 Comment: - May be ACD, however stool is heme positive - GI consulted, changed to IV protonix - H&H stable, will transfuse if symptomatic (6) Confusion Code(s): R41.0 - DISORIENTATION, UNSPECIFIED SNOMED Code(s): 393718616 Comment: - Toxic metabolic encephalopathy likely related to MICHEAL, UTI, bacteremia and UGIB - Continue IVF, atbx and supportive care (7) GERD (gastroesophageal reflux disease) Code(s): K21.9 - GASTRO-ESOPHAGEAL REFLUX DISEASE WITHOUT ESOPHAGITIS SNOMED Code(s): 604495465 Comment: - Concerned given NSAID use, and low H&H and heme pos stool - Changed to IV protonix (8) Hyponatremia Code(s): E87.1 - HYPO-OSMOLALITY AND HYPONATREMIA SNOMED Code(s): 83663377 Comment: - Hypovolemic hyponatremia 2/2 acute dehydration - Continue IVNS (9) Leukocytosis Code(s): D72.829 - ELEVATED WHITE BLOOD CELL COUNT, UNSPECIFIED SNOMED Code(s) : 952964015 Comment: - presented with WBc's 22.2 down to 18.2 yesterday and increased to >27 on 11/20 - likley increase 2/2 to bacteremia and GIB, may be biliary source as well? - Monitor temps and labs - Pending MRCP at the recommendation of GI (10) UTI (urinary tract infection) Comment: - Urine culture positive for e-coli, continue ceftriaxone based on susceptibility - [place] in place - draining cloudy yellow urine (11) HTN (hypertension) Code(s): I10 - ESSENTIAL (PRIMARY) HYPERTENSION SNOMED Code(s): 37326097 Comment: - IV hydralazine PRN (12) DM type 2 (diabetes mellitus, type 2) Comment: - fingersticks Q4H (13) DVT prophylaxis Code(s): GQJ9705 - SNOMED Code(s): 250851066 Comment: - SCDs only in presence of anemia and likely GIB (14) Full code status Code(s): Z78.9 - OTHER SPECIFIED HEALTH STATUS SNOMED Code(s): 849510646 Status and Disposition: inpatient, guarded. Will discuss POC with patient's son Thad/HC proxy.
[2018-11-21] MEDS: hydrALAZINE IV* 20 MG/ML VIAL IV SLOW PU PRN (20:12)
--- NOTE | 2018-11-21 20:32 | CONS ---
CC: Nell Marie NP * CONSULTATION REPORT: DATE OF CONSULT: 11/21/18. PRIMARY CARE PHYSICIAN: Nell Marie NP. REASON FOR CONSULTATION: Anemia, occult positive. HISTORY OF PRESENT ILLNESS: This is a 78-year-old female with past medical history of diabetes, hyperlipidemia, hypertension, GERD, osteoarthritis who presented to the emergency room with complaints of feeling generally unwell, fatigue, nausea, and confusion. The history of present illness is limited by mental status. She denies any carol abdominal pain. Denies any black or blood in the stool. Denies any diarrhea, but does admit to constipation on a chronic basis. She also admits to dysuria. No current nausea, emesis, but did have this 2 days ago. She is unsure if she has had a colonoscopy in the past. She told the admitting physician that she did take naproxen and some NSAIDs at home. She denies any dysphagia, odynophagia. Admits to subjective weight loss , but unable to place a number on it. The remainder of the 14-point review of systems is grossly negative. PAST MEDICAL HISTORY: 1. Diabetes, type 2. 2. Hyperlipidemia. 3. Hypertension. 4. GERD. 5. Osteoarthritis. HOME MEDICATIONS: 1. Cetirizine. 2. Codeine. 3. Guaifenesin. 4. Cyclobenzaprine. 5. Voltaren. 6. Furosemide. 7. Gabapentin. 8. Hydrocodone. 9. Acetaminophen. 10. Multivitamin. 11. Naproxen. 12. Omeprazole. 13. Pravastatin. ALLERGIES: Include MOXIFLOXACIN, CLAVULANIC ACID, which elicit vomiting. FAMILY HISTORY: No family history of GI cancer or IBD. SOCIAL HISTORY: Denies tobacco, alcohol, or drug use. REVIEW OF SYSTEMS: Remainder of the 14-point review of systems is grossly negative. PHYSICAL EXAMINATION: Vital Signs: Blood pressure is 182/82, pulse is 91, respiratory rate is 16, she is 92% on room air. In general, alert, oriented to person only, no acute distress. HEENT: Atraumatic, normocephalic. Pupils equal, round, reactive to light. Extraocular movements are intact. Conjunctivae are pink. Sclerae anicteric. Cardiovascular: Regular rate and rhythm. S1, S2. Pulmonary: Trace rales at the base. Abdomen: Soft, nontender , nondistended. Bowel sounds positive. Rectum: Rectal exam done with nurse Delisa at bedside revealed no fresh or old blood on rectal exam, brown stool in the vault. Extremities: No edema, clubbing, or cyanosis. Skin: A few scattered ecchymosis but no distinct rash or lesions. LABORATORY DATA/DIAGNOSTIC STUDIES: Hemoglobin 7.4, prior baseline appears to be in the middle 11 range, platelet count 279, WBC count is 22.1. INR 1.30. Sodium 134, chloride 100, carbon dioxide 20, anion gap 14, BUN 82, creatinine is 6.1. Calcium 8.3. Magnesium 2.1. Bilirubin is 1.2. Alkaline phosphatase 414, AST is 9, ALT is 14, albumin is 2.5. She had a right upper quadrant ultrasound on 11/18/18. It did not show any CBD dilatation. It was grossly unremarkable with the exception of some mild wall thickening of the gallbladder, but no gallstones or pericholecystic fluid. There is no evidence of a positive [place] sign. She had a CT on 11/19/18 of the abdomen and pelvis with trace bilateral pleural effusions and diffuse soft tissue edema. This was done without contrast. ASSESSMENT AND PLAN: This is a 78-year-old female who is admitted with fatigue , acute renal failure, confusion, and E. coli bacteremia. 1. Anemia. Rectal exam without any overt evidence of bleeding. Brown stool in the vault. She does have a positive occult blood, but does not appear to be actively bleeding at this point. Given the leukocytosis, she did have a 7-beat run of V tach last night as well. We would prefer optimization of her general condition before considering endoscopic evaluation. With the anemia, certainly she would benefit from an EGD and colonoscopy in the future, but recall our service when current clinical condition improves. In the meantime, we would monitor H and H q.6 to 12 hours. Monitor for signs of overt bleeding and notify service if this occurs. 2. E. coli bacteremia. Thought to urinary in nature. Gallbladder with slight wall thickening. There is an elevated alkaline phosphatase and a slightly elevated bilirubin. We will plan on getting MRCP to evaluate the tract. 3. Elevated alkaline phosphatase. Given the slight elevation of bilirubin, we will plan on MRCP. A GGT may be useful, but with the elevation of bilirubin, I feel an MRCP is more appropriate. 4. Acute renal failure. Per primary team. 5. Confusion. Per primary team. [id number]/CPS #: [id number] MTDD
[2018-11-22] MEDS: Sodium Bicarbonate (ANTACID)* 650 MG TAB PO SCH ×4 (00:28→17:13)
[2018-11-22] MEDS: Lactated Ringers 1000 ML Bag* 1,000 ML IV SCH ×2 (05:22→19:49)
--- NOTE | 2018-11-22 05:56 | ECHO ---
*[facility]* [place] [address] Fax #: [phone] Transthoracic Echocardiogram Patient: Laurel Beck : 1940 Study Date: 11/21/2018 Age: 78 Gender: F HR: 83 bpm Height: 66 in /167.6 cm BSA: 1.75 m^2 Weight: 143.7 lb /65.3 kg BMI: 23.2 kg/m^2 *Museum Registrar: * Krystal Rushing RDCS RN *Referring Physician: * Matilde Bustos *Reading Physician: * Saji Klein MD Indications: Tachycardia, ventricular paroxysmal. History: Risk factors: Hypertension. Diabetes mellitus. Dyslipidemia. Conclusions Summary: - Left ventricle: Systolic function is normal. The estimated ejection fraction is 55-60%. Doppler parameters are consistent with abnormal left ventricular relaxation (grade 1 diastolic dysfunction). - Mitral valve: There is mild regurgitation. - Aortic valve: There is trace to mild regurgitation. - Tricuspid valve: There is mild regurgitation. - Pulmonic valve: There is mild to moderate regurgitation. - Pulmonary arteries: Systolic pressure is at the upper limits of normal, estimated to be 35 mm Hg, in the range of 35 mm Hg to 40 mm Hg. Study data: Transthoracic echocardiogram. Procedure: Transthoracic echocardiography was performed. Image quality was fair. Complete 2D, spectral Doppler, and color flow Doppler. Location: Bedside. Patient status: Inpatient. Patient room number: 444-01. No prior study is available for comparison. Rhythm: Normal sinus rhythm with PAC's. Findings Left ventricle: The cavity size is normal. Wall thickness is mildly increased. Systolic function is normal. The estimated ejection fraction is 55-60%. Wall motion is normal; there are no regional wall motion abnormalities. Doppler parameters are consistent with abnormal left ventricular relaxation (grade 1 diastolic dysfunction). Right ventricle: The cavity size is normal. Systolic function is normal. Ventricular septum: The outflow septum has a sigmoid appearance and measures 1.5 cm. Left atrium: The atrium is mildly dilated. Right atrium: The atrium is normal in size. Mitral valve: The leaflets are mildly thickened. There is no evidence of stenosis. There is mild regurgitation. Aortic valve: Not well visualized. The leaflets are mildly thickened. There is no evidence of stenosis. There is trace to mild regurgitation. Tricuspid valve: The valve is structurally normal. There is no evidence of stenosis. There is mild regurgitation. Pulmonic valve: Not well visualized. There is no evidence of stenosis. There is mild to moderate regurgitation. Aorta: Aortic root: The aortic root is not dilated. Ascending aorta: The ascending aorta is not dilated. Aortic arch: The aortic arch is not dilated. Pericardium: There is no pericardial effusion. Pulmonary arteries: Not well visualized. Systolic pressure is at the upper limits of normal, estimated to be 35 mm Hg, in the range of 35 mm Hg to 40 mm Hg. Systemic veins: Inferior vena cava: The vessel is normal in size. There is (>= 50%) respiratory change in the IVC dimension. Measurements Left ventricle Value Ref Aortic valve Value Ref ALVERTO, LAX 4.3 cm 3.8 - Peak v, S 1.71 m/sec ---- 5.2 VTI, S 35.7 cm ---- ESD, LAX 2.9 cm 2.2 - Mean grad, S 6.6 mm Hg ---- 3.5 Peak grad, S 11.7 mm Hg ---- FS, LAX 34 % 27 - 45 LVOT/AV, VTI ratio 0.71 ---- PW, ED (H) 1.1 cm 0.6 - 0.9 Mitral valve Value Ref IVS/PW, ED 1.06 -------- Peak E 0.91 m/sec ---- E', lat krzysztof, TDI 10.0 cm/sec >=10.0 Peak A 1.34 m/sec -- -- E/e', lat krzysztof, TDI 9 -------- Decel time 258 ms ---- E', med krzysztof, TDI 7.0 cm/sec >=7.0 Peak grad, D 3.3 mm Hg -- -- E/e', med krzysztof, TDI 13 -------- Peak E/A ratio 0.68 ---- E', avg, TDI 8.5 cm/sec -------- E/e', avg, TDI 11 <=14 Pulmonic valve Value Re f Peak v, S 0.97 m/sec ---- LVOT Value Ref Peak grad, S 3.8 mm Hg ---- Peak dylan, S 1.26 m/sec -------- VTI, S 25.4 cm -------- Aortic root Value Ref Peak grad, S 6 mm Hg -------- Root diam 2.8 cm <4.0 Mean grad, S 4 mm Hg -------- Ascending aorta Value Ref Ventricular septum Value Ref AAo AP diam, S 3.0 cm ---- IVS, ED (H) 1.1 cm 0.6 - 0.9 Aortic arch Value Ref Arch diam 2.1 cm ---- Right ventricle Value Ref ALVERTO minor ax, A4C 2.8 cm 1.9 - Decending aorta Value Ref mid 3.5 Shannon peak dylan 0.99 m/sec ---- Left atrium Value Ref Inferior vena cava Value Ref LA ID 3.1 cm -------- Diam 1.7 cm ---- SI dim ES, LAX 3.1 cm -------- ML dim, A4C 4.0 cm -------- SI dim, A4C 4.8 cm -------- Vol, ES, 2-p 64 ml -------- Vol/bsa, ES, 2-p (H) 36 ml/m^2 16 - 34 Right atrium Value Ref ML dim, ES, A4C 3.0 cm 2.6 - 4.4 SI dim, ES, A4C 4.5 cm 3.4 - 5.3 Estimated RAP 3 mm Hg -------- Legend: (L) and (H) danelle values outside specified reference range. Prepared and electronically signed by Saji Klein MD 11/22/2018 05:55
[2018-11-22] MEDS: Pantoprazole IV* 40 MG IV SCH (08:29)
[2018-11-22] MEDS ORDERED: Lidocaine 2% VISCOUS* 15 ML UDC SWISH SPIT PRN (09:00)
[2018-11-22 10:26] LABS: Hematocrit 19 % (35-47); Hemoglobin 6.7 g/dL (12.0-16.0); Mean Corpuscular HGB Conc 35 g/dL (31-36); Mean Corpuscular Hemoglobin 29 pg (27-31); Mean Corpuscular Volume 83 fL (80-97); Mean Platelet Volume 7.5 fL (7.4-10.4); Platelet Count 290 10^3/uL (150-450); Red Blood Count 2.31 10^6 /uL (3.70-4.87); Red Cell Distribution Width 17 % (10-15); White Blood Count 20.5 10^3/uL (3.5-10.8)
[2018-11-22 10:43] LABS: BUN/Creatinine Ratio 14.3 (8-20); Calcium 8.2 mg/dL (8.6-10.3); EGFR Non-African American 8.2 (>60); Potassium 4.4 mmol/L (3.5-5.0)
[2018-11-22 11:06] LABS: ABS Basophils 0.1 10^3/ul (0-0.2); ABS Eosinophils 0.1 10^3/ul (0-0.6); ABS Lymphocytes 0.8 10^3/ul (1.0-4.8); ABS Monocytes 1.2 10^3/ul (0-0.8); ABS Neutrophils 18.3 10^3/ul (1.5-7.7); Eosinophil % 0.3 %; Lymphocyte % 3.9 %
--- NOTE | 2018-11-22 15:18 | CONS ---
CONSULTATION REPORT: DATE OF CONSULT: 11/22/18 REQUESTING PROVIDER: Matilde Bustos NP CONSULTING SERVICE: Infectious Disease. REASON FOR CONSULT: Leukocytosis. IMPRESSION: 1. Escherichia coli cystitis with bacteremia, Escherichia coli sensitive to ceftriaxone. 2. Acute kidney injury in the setting of recent NSAID use and systemic infection. 3. Leukocytosis which is slowly improving; when she came to the hospital, it was 22,000, it peaked at 27,000, and is down to 20,000 today, predominantly neutrophils. She does now have a phlebitis in the right antecubital fossa which is likely contributing to her white count. Because she is otherwise improving, I do not think she has a developed perinephric abscess or has inadequately treated infection. RECOMMENDATIONS: Continue ceftriaxone. Follow her white count and use warm compresses on right AC fossa. HISTORY OF PRESENT ILLNESS: This is a 78-year-old woman who cannot provide history of the present illness, which is obtained instead from review of the medical records and discussion with Matilde Bustos NP. She came to the hospital on 11/18/18 with pain, malaise, found to have a white count of 22,000, creatinine of 7.7. Urinalysis showed leukocyte esterase, white cells, red cells , bacteria. Urine culture came back with E. coli, as did /4 blood culture bottles. She is continued on antibiotics here now in the form of ceftriaxone and tolerating that well. Her creatinine is coming down slowly. She had infiltration of the IV in the right arm overnight, has had some swelling there, and has some pain in right arm where the IV was. Today, she denies pain or fever and says her appetite has been good. She does have a Bangura catheter present still. PAST MEDICAL HISTORY: 1. Type 2 diabetes mellitus. 2. Hyperlipidemia. 3. Hypertension. 4. Gastroesophageal reflux disease. 5. Osteoarthritis. 6. Submandibular infection in 2018. MEDICATIONS: 1. Tylenol. 2. Hydralazine. 3. Lactated Ringer's. 4. Pantoprazole. 5. Ceftriaxone 1 g a day. 6. Sodium bicarbonate. ALLERGIES: MOXIFLOXACIN and CLAVULANIC ACID caused vomiting. FAMILY HISTORY: Her father at 72 with an aortic aneurysm. SOCIAL HISTORY: Nonsmoker. No injection drugs. She lives in [place]. REVIEW OF SYSTEMS: All negative, except as noted above to a 14-point review of systems. PHYSICAL EXAM: Vital Signs: Temperature 37, heart rate 80, respiratory rate 18 , blood pressure 169/72, oxygen saturation 98% on room air. In general, she is awake, not in distress. Neurologic: She is alert, oriented x2, follows commands, answers most questions appropriately. HEENT: There is no conjunctival hemorrhage. Oropharynx without lesions. Neck is supple without mass. Heart is regular rate and rhythm without murmurs, rubs, or gallops. Lungs are clear to auscultation bilaterally. Abdomen: Soft, nontender, nondistended. There is no flank tenderness to palpation. Skin: There is no rash or splinter hemorrhage. Musculoskeletal: There is no spine tenderness to palpation or joint synovitis. DIAGNOSTIC STUDIES/LAB DATA: White blood cell count 20, hemoglobin 6.7, platelets 290, MCV 83. Creatinine 5.1, bicarb 17. Please see impressions and recommendations outlined above, which I discussed with Matilde Bustos NP. Thanks for asking me to see Ms. Beck in consultation. [id number]/[facility] #: [id number] [facility]ITAL[facility]
--- NOTE | 2018-11-22 16:58 | PN ---
Subjective Date of Service: 11/22/18 Interval History: Patient seen and examined. Appears more alert today, granddaughter at bedside. Patient had LUE IV infiltrate with IVF overnight, complaining of some arm pain and swelling. Denies SOB, oral/mouth pain improved - complaint of sore gums last evening. No chest pain, no abdominal pain. No fevers or chills. Family History: Unchanged from Admission Social History: Unchanged from Admission Past Medical History: Unchanged from Admission Objective Active Medications: Acetaminophen (Tylenol Tab*) 650 mg PO Q6H PRN PRN Reason: Mild pain/fever>100.4 Last Admin: 11/19/18 17:53 Dose: 650 mg Dextrose (Dextrose 50% Vial 50 Ml*) 50 ml IV PUSH .FOR FS < 60 - SS PRN PRN Reason: FS < 60 Last Admin: 11/18/18 21:09 Dose: 50 ml Hydralazine HCl (Apresoline Iv*) 5 mg IV SLOW PU Q6H PRN PRN Reason: SBP >170 DBP >90 Last Admin: 11/21/18 20:12 Dose: 5 mg Ceftriaxone Sodium 1 gm/ (Sodium Chloride) 50 mls @ 100 mls/hr IVPB Q24H [facility] Last Admin: 11/21/18 16:24 Dose: 100 mls/hr Lactated Ringer's (Lactated Ringers 1000 Ml Bag*) 1,000 mls @ 100 mls/hr IV PER RATE [facility] Last Admin: 11/22/18 05:22 Dose: 100 mls/hr Lidocaine (Xylocaine 2% Viscous*) 15 ml SWISH SPIT TID PRN PRN Reason: oral pain Pantoprazole Sodium (Protonix Iv*) 40 mg IV DAILY [facility] Last Admin: 11/22/18 08:29 Dose: 40 mg Prochlorperazine Edisylate (Compazine Inj*) 5 mg IV Q8H PRN PRN Reason: NAUSEA/VOMITING Last Admin: 11/21/18 21:44 Dose: 5 mg Sodium Bicarbonate (Sodium Bicarbonate (Antacid)*) 650 mg PO Q6HR [facility] Last Admin: 11/22/18 12:20 Dose: 650 mg Vital Signs - 8 hr 11/22/18 11/22/18 12:06 15:26 Temperature 98.2 F 97.9 F Pulse Rate 78 84 Respiratory 18 16 Rate Blood Pressure 169/72 165/65 (mmHg) O2 Sat by Pulse 98 99 Oximetry Oxygen Devices in Use Now: None Appearance: alert, NAD Eyes: No Scleral Icterus, PERRLA Ears/Nose/Mouth/Throat: NL Teeth, Lips, Gums, Mucous Membranes Moist Neck: NL Appearance and Movements; NL JVP, Trachea Midline Respiratory: Clear to Auscultation Cardiovascular: NL Sounds; No Murmurs; No JVD, RRR Abdominal: NL Sounds; No Tenderness; No Distention Extremities: No Clubbing, Cyanosis, - - edema LUE 2/2 IV infiltration Skin: No Rash or Ulcers Neurological: Alert and Oriented x 3, - Lines/Tubes/Other Access: Clean, Dry and Intact Bangura Nutrition: Taking PO's Result Diagrams: 11/22/18 09:57 11/22/18 09:57 Additional Lab and Data: Lab Results 11/18/18 11/18/18 11/18/18 Range/Units 15:15 15:28 15:28 WBC 22.2 H (3.5-10.8) 10^3/uL RBC 3.07 L (3.70-4.87) 10^6 /uL Hgb 9.0 L (12.0-16.0) g/dL Hct 26 L (35-47) % MCV 84 (80-97) fL MCH 29 (27-31) pg MCHC 35 (31-36) g/dL RDW 17 H (10-15) % Plt Count 140 L (150-450) 10^3/uL MPV 8.1 (7.4-10.4) fL Neut % (Auto) Pending Lymph % (Auto) Pending [facility] % (Auto) Pending Eos % (Auto) Pending Baso % (Auto) Pending Absolute Neuts (auto) Pending Absolute Lymphs (auto) Pending Absolute Monos (auto) Pending Absolute Eos (auto) Pending Absolute Basos (auto) Pending Absolute Nucleated RBC Pending Nucleated RBC % Pending Sodium 124 L (135-145) mmol/L Potassium 4.6 (3.5-5.0) mmol/L Chloride 91 L (101-111) mmol/L Carbon Dioxide 15 L (22-32) mmol/L Anion Gap 18 H (2-11) mmol/L BUN 89 H (6-24) mg/dL Creatinine 7.76 H (0.51-0.95) mg/dL Est GFR ( Amer) 6.1 (>60) Est GFR (Non-Af Amer) 5.1 (>60) BUN/Creatinine Ratio 11.5 (8-20) Glucose 63 L (70-100) mg/dL POC Glucose (mg/dL) 62 L (70-100) mg/dL Calcium 8.1 L (8.6-10.3) mg/dL Total Bilirubin 2.70 H (0.2-1.0) mg/dL AST 27 (13-39) U/L ALT 28 (7-52) U/L Alkaline Phosphatase 541 H (34-104) U/L Troponin I 0.06 H* (<0.04) ng/mL C-Reactive Protein 317.64 H (<8.01) mg/L B-Natriuretic Peptide (<=100) pg/mL Total Protein 5.8 L (6.4-8.9) g/dL Albumin 2.9 L (3.2-5.2) g/dL Globulin 2.9 (2-4) g/dL Albumin/Globulin Ratio 1.0 (1-3) // Range/Units 15:28 WBC (3.5-10.8) 10^3/uL RBC (3.70-4.87) 10^6 /uL Hgb (12.0-16.0) g/dL Hct (35-47) % MCV (80-97) fL MCH (27-31) pg MCHC (31-36) g/dL RDW (10-15) % Plt Count (150-450) 10^3/uL MPV (7.4-10.4) fL Neut % (Auto) Lymph % (Auto) [facility] % (Auto) Eos % (Auto) Baso % (Auto) Absolute Neuts (auto) Absolute Lymphs (auto) Absolute Monos (auto) Absolute Eos (auto) Absolute Basos (auto) Absolute Nucleated RBC Nucleated RBC % Sodium (135-145) mmol/L Potassium (3.5-5.0) mmol/L Chloride (101-111) mmol/L Carbon Dioxide (22-32) mmol/L Anion Gap (2-11) mmol/L BUN (6-24) mg/dL Creatinine (0.51-0.95) mg/dL Est GFR ( Amer) (>60) Est GFR (Non-Af Amer) (>60) BUN/Creatinine Ratio (8-20) Glucose (70-100) mg/dL POC Glucose (mg/dL) (70-100) mg/dL Calcium (8.6-10.3) mg/dL Total Bilirubin (0.2-1.0) mg/dL AST (13-39) U/L ALT (7-52) U/L Alkaline Phosphatase (34-104) U/L Troponin I (<0.04) ng/mL C-Reactive Protein (<8.01) mg/L B-Natriuretic Peptide 656 H (<=100) pg/mL Total Protein (6.4-8.9) g/dL Albumin (3.2-5.2) g/dL Globulin (2-4) g/dL Albumin/Globulin Ratio (1-3) Microbiology and Other Data: Microbiology 11/18/18 17:30 Urine Culture - Preliminary Urine Escherichia Coli Diagnostic Imaging: Patient Name: LAUREL VENTURA Medical Record#: [id number] Ordering Physician: Brando Cardona DO Acct.#: [id number] : 1940 Age: 78 Sex: F Location: [address] [place] [address]/[employer]LEMET[employer] Exam Date: 11/21/181801 ADM Status: ADM IN Order Information: MRI CHOLANGIOGRAM (MRCP) Accession Number: [id number] CPT: 16263 EXAM: MR Abdomen Without Contrast, MRCP. EXAM DATE/TIME: 11/21/2018 9:08 PM CLINICAL HISTORY: 78 years old, female; Abnormal findings; Abnormal lab test; Other: Elevated alkaline phosphatase; Patient HX: PT C/O of malaise, nausea, dry heaving, and confusion; Additional info: Elevated alkaline phosphatase, ecoli bacteremia. PT motion from breathing- repeats done and best images sent. PT rn states PT has been npo all day TECHNIQUE: Imaging protocol: MR of the abdomen without contrast. COMPARISON: A/P WO CT ABD/PEL W/O 11/19/2018 7:04 PM FINDINGS: Lungs: Compressive atelectasis posterior lower lobes. Pleura: Small bilateral pleural effusions. Liver: Normal liver parenchymal signal intensity with no focal lesions. Normal portal and hepatic vein flow voids. Gallbladder and bile ducts: No wall thickening, pericholecystic fluid, or gallstones. No intra-or extrahepatic biliary dilation. Pancreas: Normal pancreatic parenchymal signal intensity with no main ductal dilation, focal lesions, or distal parenchymal atrophy. Spleen: Normal splenic signal intensity. No splenomegaly. Kidneys and ureters: Normal signal intensity with no pelvocaliectasis or solid cortical masses. Stomach and bowel: Stomach is grossly normal. Visualized small bowel is normal in caliber. No masses or segmental wall thickening throughout the visualized colon. Retroperitoneal space: Mesenteric and retroperitoneal edema as seen previously. Intraperitoneal space: No fluid collection. Veins: Normal aortic and IVC flow voids. Bones/joints: The spine demonstrates mild degenerative changes at multiple levels. Normal marrow signal intensity. Soft tissues: Subcutaneous edema throughout the visualized abdomen. IMPRESSION: 1. No MRI findings to correlate with patient's symptomatology. Specifically no choledocholithiasis. 2. Findings of third spacing. *[facility]* [place] [address] Fax #: [phone] Transthoracic Echocardiogram Patient: Laurel Ventura : 1940 Study Date: 11/21/2018 Age: 78 Gender: F HR: 83 bpm Height: 66 in /167.6 cm BSA: 1.75 m^2 Weight: 143.7 lb /65.3 kg BMI: 23.2 kg/m^2 *Ambulance Driver Paramedic: * Krystal Rushing RDCS RN *Referring Physician: * Matilde Bustos *Reading Physician: * Saji Klein MD Indications: Tachycardia, ventricular paroxysmal. History: Risk factors: Hypertension. Diabetes mellitus. Dyslipidemia. Conclusions Summary: - Left ventricle: Systolic function is normal. The estimated ejection fraction is 55-60%. Doppler parameters are consistent with abnormal left ventricular relaxation (grade 1 diastolic dysfunction). - Mitral valve: There is mild regurgitation. - Aortic valve: There is trace to mild regurgitation. - Tricuspid valve: There is mild regurgitation. - Pulmonic valve: There is mild to moderate regurgitation. - Pulmonary arteries: Systolic pressure is at the upper limits of normal, estimated to be 35 mm Hg, in the range of 35 mm Hg to 40 mm Hg. Assess/Plan/Problems-Billing Assessment: Mrs. Ventura is a 78-year-old lady with a past medical history of type 2 diabetes, hyperlipidemia, hypertension, GERD, osteoarthritis, who presented to the emergency room with complaints of malaise, nausea, dry heaving, and confusion. Found to have acute renal failure and leukocytosis and electrolyte abnormalities. - Patient Problems (1) MICHEAL (acute kidney injury) Code(s): N17.9 - ACUTE KIDNEY FAILURE, UNSPECIFIED SNOMED Code(s): 48344980 Comment: - Multifactoral, combined dehydration, NSAID use, lisinpril and lasix use and complicated by UTI - Creatinine 5.10, continues to trend down very slowly - Nephrology consult appreciated, will follow back up with Dr. Mackey - CT abd/pelvis with no acute findings - Continue IVF and sodium bicarb - avoid nephrotoxic medications (2) Gram-negative bacteremia Code(s): R78.81 - BACTEREMIA SNOMED Code(s): 237306078743 Comment: - Gram negative bacilli in blood cultures from 11/19/2018, identified as eColi - In presence of eColi UTI - Continue ceftriaxone and follow cultures and sensitivities - Confusion improved, consult with Dr. Arias appreciated, as WBC count has been very slow to improve - MRCP with no choledocholythiasis (3) V-tach Code(s): I47.2 - VENTRICULAR TACHYCARDIA SNOMED Code(s): 64671852 Comment: - Low magnesium on labs and persistent metabolic derangement - Had 2gm mag with no further ectopy - ECHO as above, no wall motion abnormalities - Discussed with GI, episode was self limited and occured during sleep, while patient clearly has a gram negative bacteremia, will likely be able to proceed with EGD, colonoscopy without issue or needing further cardiac workup (4) Abdominal pain Code(s): R10.9 - UNSPECIFIED ABDOMINAL PAIN SNOMED Code(s): 13962315 Comment: - c/o upper epigastric pain to mid abd pain - Heme positive stool and low H&H with hx of GERD and NSAID use, constellation of findings consistent with UGIB - Changed to IV protonix - MRCP negative, will still likely need EGD and colonoscopy before discharge (5) Anemia Code(s): D64.9 - ANEMIA, UNSPECIFIED SNOMED Code(s): 259672445 Comment: - May be ACD, however stool is heme positive - GI consulted, changed to IV protonix - H&H stable, will transfuse if symptomatic (6) Confusion Code(s): R41.0 - DISORIENTATION, UNSPECIFIED SNOMED Code(s): 919212955 Comment: - Toxic metabolic encephalopathy likely related to MICHEAL, UTI, bacteremia and UGIB - Continue IVF, atbx and supportive care - Mentation greatly improved today (7) GERD (gastroesophageal reflux disease) Code(s): K21.9 - GASTRO-ESOPHAGEAL REFLUX DISEASE WITHOUT ESOPHAGITIS SNOMED Code(s): 555924687 Comment: - Concerned given NSAID use, and low H&H and heme pos stool - Changed to IV protonix (8) Hyponatremia Code(s): E87.1 - HYPO-OSMOLALITY AND HYPONATREMIA SNOMED Code(s): 31573398 Comment: - Hypovolemic hyponatremia 2/2 acute dehydration - Resolved (9) Leukocytosis Code(s): D72.829 - ELEVATED WHITE BLOOD CELL COUNT, UNSPECIFIED SNOMED Code(s) : 720640365 Comment: - presented with WBc's 22.2 down to 18.2 yesterday and increased to >27 on 11/20 - likley increase 2/2 to bacteremia and GIB - Monitor temps and labs - MRCP negative for biliary source, appreciate any further recommendations by ID today (10) UTI (urinary tract infection) Comment: - Urine culture positive for e-coli, continue ceftriaxone based on susceptibility - Bangura in place - draining cloudy yellow urine (11) HTN (hypertension) Code(s): I10 - ESSENTIAL (PRIMARY) HYPERTENSION SNOMED Code(s): 04462826 Comment: - IV hydralazine PRN (12) DM type 2 (diabetes mellitus, type 2) Comment: - fingersticks Q4H (13) DVT prophylaxis Code(s): QRE7039 - SNOMED Code(s): 755294882 Comment: - SCDs only in presence of anemia and likely GIB (14) Full code status Code(s): Z78.9 - OTHER SPECIFIED HEALTH STATUS SNOMED Code(s): 201501792 Status and Disposition: inpatient, improving.
[2018-11-22] MEDS: cefTRIAXone(*) 1 GM in NS 0.9% 50 ML* 50 ML IVPB SCH (17:13)
[2018-11-23] MEDS: Sodium Bicarbonate (ANTACID)* 650 MG TAB PO SCH ×3 (00:48→11:47)
[2018-11-23] MEDS: Lactated Ringers 1000 ML Bag* 1,000 ML IV SCH (05:16)
[2018-11-23] MEDS: Pantoprazole IV* 40 MG IV SCH (08:07)
[2018-11-23 10:19] LABS: ABS Basophils 0.1 10^3/ul (0-0.2); ABS Eosinophils 0.1 10^3/ul (0-0.6); ABS Lymphocytes 1.2 10^3/ul (1.0-4.8); ABS Monocytes 1.3 10^3/ul (0-0.8); ABS Neutrophils 14.8 10^3/ul (1.5-7.7); Eosinophil % 0.4 %; Hematocrit 18 % (35-47); Hemoglobin 6.1 g/dL (12.0-16.0); Lymphocyte % 6.6 %; Mean Corpuscular HGB Conc 35 g/dL (31-36); Mean Corpuscular Hemoglobin 29 pg (27-31); Mean Corpuscular Volume 82 fL (80-97); Mean Platelet Volume 7.3 fL (7.4-10.4); Platelet Count 283 10^3/uL (150-450); Red Blood Count 2.13 10^6 /uL (3.70-4.87); Red Cell Distribution Width 17 % (10-15); White Blood Count 17.4 10^3/uL (3.5-10.8)
[2018-11-23 10:32] LABS: Albumin 2.4 g/dL (3.2-5.2); BUN/Creatinine Ratio 15.3 (8-20); Calcium 8.1 mg/dL (8.6-10.3); EGFR African American 13.7 (>60); EGFR Non-African American 11.3 (>60); Globulin 2.5 g/dL (2-4); Potassium 3.8 mmol/L (3.5-5.0); Total Protein 4.9 g/dL (6.4-8.9)
[2018-11-23] MEDS: amLODIPine TAB* 5 MG PO SCH (10:33)
[2018-11-23 11:04] LABS: Polychromasia 1+
[2018-11-23 11:06] LABS: Acanthocytes 1+
[2018-11-23] MEDS: Acetaminophen TAB* 325 MG PO PRN (11:47)
[2018-11-23] MEDS: PROCHLORPERAZINE INJ 5 MG/ML 2 ML VIAL IV PRN (11:47)
[2018-11-23] MEDS ORDERED: Piperacillin/Tazobac ADVAN(*) 3.375 GM in NS 0.9% 100 ML* 100 ML IVPB ONE (11:50)
[2018-11-23] MEDS ORDERED: Zosyn per Pharmacy* NOTE FOLLOW UP SCH (12:00)
--- NOTE | 2018-11-23 17:16 | PN ---
Subjective Date of Service: 11/23/18 Interval History: Patient seen and examined. Feeling week this morning, does not appear as alert as yesterday. Does not describe any specific complaints at the time of exam, however, after exam, patient told nurse she had a sore throat and was found to be febrile. Family History: Unchanged from Admission Social History: Unchanged from Admission Past Medical History: Unchanged from Admission Objective Active Medications: Acetaminophen (Tylenol Tab*) 650 mg PO Q6H PRN PRN Reason: Mild pain/fever>100.4 Last Admin: 11/23/18 11:47 Dose: 650 mg Amlodipine Besylate (Norvasc Tab*) 5 mg PO DAILY [facility] [place] Last Admin: 11/23/18 10:33 Dose: 5 mg Dextrose (Dextrose 50% Vial 50 Ml*) 50 ml IV PUSH .FOR FS < 60 - SS PRN PRN Reason: FS < 60 Last Admin: 11/18/18 21:09 Dose: 50 ml Hydralazine HCl (Apresoline Iv*) 5 mg IV SLOW PU Q6H PRN PRN Reason: SBP >170 DBP >90 Last Admin: 11/21/18 20:12 Dose: 5 mg Piperacillin Sod/Tazobactam (Sod 3.375 gm/ Sodium Chloride) 100 mls @ 25 mls/ hr IVPB Q12H [facility] [place] Lidocaine (Xylocaine 2% Viscous*) 15 ml SWISH SPIT TID PRN PRN Reason: oral pain Pantoprazole Sodium (Protonix Iv*) 40 mg IV DAILY [facility] [place] Last Admin: 11/23/18 08:07 Dose: 40 mg Pharmacy Consult (Zosyn Per Pharmacy*) 1 note FOLLOW UP .ZOSYN PER PHARMACY [facility] [place] Prochlorperazine Edisylate (Compazine Inj*) 5 mg IV Q8H PRN PRN Reason: NAUSEA/VOMITING Last Admin: 11/21/18 21:44 Dose: 5 mg Sodium Bicarbonate (Sodium Bicarbonate (Antacid)*) 650 mg PO Q6HR [facility] [place] Last Admin: 11/23/18 11:47 Dose: 650 mg Vital Signs - 8 hr 11/23/18 11/23/18 11/23/18 11:56 12:45 14:43 Temperature 101.2 F 100.6 F 98.2 F Pulse Rate 77 68 Respiratory 16 18 Rate Blood Pressure 158/60 142/57 (mmHg) O2 Sat by Pulse 96 99 Oximetry 11/23/18 15:03 Temperature 98.0 F Pulse Rate 75 Respiratory 16 Rate Blood Pressure 151/59 (mmHg) O2 Sat by Pulse 97 Oximetry Oxygen Devices in Use Now: None Appearance: alert, fatigued, ill appearing Eyes: No Scleral Icterus, PERRLA Ears/Nose/Mouth/Throat: Clear Oropharnyx Neck: NL Appearance and Movements; NL JVP, Trachea Midline Respiratory: Symmetrical Chest Expansion and Respiratory Effort, Clear to Auscultation Cardiovascular: NL Sounds; No Murmurs; No JVD, RRR, No Edema Abdominal: NL Sounds; No Tenderness; No Distention Extremities: No Edema, No Clubbing, Cyanosis Skin: No Rash or Ulcers Neurological: - - A&Ox2 Lines/Tubes/Other Access: Clean, Dry and Intact Lambert Nutrition: Taking PO's Result Diagrams: 11/23/18 10:08 11/23/18 10:08 Additional Lab and Data: Lab Results 11/18/18 11/18/18 11/18/18 Range/Units 15:15 15:28 15:28 WBC 22.2 H (3.5-10.8) 10^3/uL RBC 3.07 L (3.70-4.87) 10^6 /uL Hgb 9.0 L (12.0-16.0) g/dL Hct 26 L (35-47) % MCV 84 (80-97) fL MCH 29 (27-31) pg MCHC 35 (31-36) g/dL RDW 17 H (10-15) % Plt Count 140 L (150-450) 10^3/uL MPV 8.1 (7.4-10.4) fL Neut % (Auto) Pending Lymph % (Auto) Pending [place]on % (Auto) Pending Eos % (Auto) Pending Baso % (Auto) Pending Absolute Neuts (auto) Pending Absolute Lymphs (auto) Pending Absolute Monos (auto) Pending Absolute Eos (auto) Pending Absolute Basos (auto) Pending Absolute Nucleated RBC Pending Nucleated RBC % Pending Sodium 124 L (135-145) mmol/L Potassium 4.6 (3.5-5.0) mmol/L Chloride 91 L (101-111) mmol/L Carbon Dioxide 15 L (22-32) mmol/L Anion Gap 18 H (2-11) mmol/L BUN 89 H (6-24) mg/dL Creatinine 7.76 H (0.51-0.95) mg/dL Est GFR ( Amer) 6.1 (>60) Est GFR (Non-Af Amer) 5.1 (>60) BUN/Creatinine Ratio 11.5 (8-20) Glucose 63 L (70-100) mg/dL POC Glucose (mg/dL) 62 L (70-100) mg/dL Calcium 8.1 L (8.6-10.3) mg/dL Total Bilirubin 2.70 H (0.2-1.0) mg/dL AST 27 (13-39) U/L ALT 28 (7-52) U/L Alkaline Phosphatase 541 H (34-104) U/L Troponin I 0.06 H* (<0.04) ng/mL C-Reactive Protein 317.64 H (<8.01) mg/L B-Natriuretic Peptide (<=100) pg/mL Total Protein 5.8 L (6.4-8.9) g/dL Albumin 2.9 L (3.2-5.2) g/dL Globulin 2.9 (2-4) g/dL Albumin/Globulin Ratio 1.0 (1-3) 11/18/18 Range/Units 15:28 WBC (3.5-10.8) 10^3/uL RBC (3.70-4.87) 10^6 /uL Hgb (12.0-16.0) g/dL Hct (35-47) % MCV (80-97) fL MCH (27-31) pg MCHC (31-36) g/dL RDW (10-15) % Plt Count (150-450) 10^3/uL MPV (7.4-10.4) fL Neut % (Auto) Lymph % (Auto) [place] % (Auto) Eos % (Auto) Baso % (Auto) Absolute Neuts (auto) Absolute Lymphs (auto) Absolute Monos (auto) Absolute Eos (auto) Absolute Basos (auto) Absolute Nucleated RBC Nucleated RBC % Sodium (135-145) mmol/L Potassium (3.5-5.0) mmol/L Chloride (101-111) mmol/L Carbon Dioxide (22-32) mmol/L Anion Gap (2-11) mmol/L BUN (6-24) mg/dL Creatinine (0.51-0.95) mg/dL Est GFR ( Amer) (>60) Est GFR (Non-Af Amer) (>60) BUN/Creatinine Ratio (8-20) Glucose (70-100) mg/dL POC Glucose (mg/dL) (70-100) mg/dL Calcium (8.6-10.3) mg/dL Total Bilirubin (0.2-1.0) mg/dL AST (13-39) U/L ALT (7-52) U/L Alkaline Phosphatase (34-104) U/L Troponin I (<0.04) ng/mL C-Reactive Protein (<8.01) mg/L B-Natriuretic Peptide 656 H (<=100) pg/mL Total Protein (6.4-8.9) g/dL Albumin (3.2-5.2) g/dL Globulin (2-4) g/dL Albumin/Globulin Ratio (1-3) Microbiology and Other Data: Microbiology 11/18/18 17:30 Urine Culture - Preliminary Urine Escherichia Coli Diagnostic Imaging: Patient Name: LAUREL VENTURA Medical Record#: [id number] Ordering Physician: Brando Cardona DO Acct.#: [id number] : 1940 Age: 78 Sex: F Location: [address] [place] [address]/[employer]LEMET[place] Exam Date: 11/21/181801 ADM Status: ADM IN Order Information: MRI CHOLANGIOGRAM (MRCP) Accession Number: [id number] CPT: 16078 EXAM: MR Abdomen Without Contrast, MRCP. EXAM DATE/TIME: 11/21/2018 9:08 PM CLINICAL HISTORY: 78 years old, female; Abnormal findings; Abnormal lab test; Other: Elevated alkaline phosphatase; Patient HX: PT C/O of malaise, nausea, dry heaving, and confusion; Additional info: Elevated alkaline phosphatase, ecoli bacteremia. PT motion from breathing- repeats done and best images sent. PT rn states PT has been npo all day TECHNIQUE: Imaging protocol: MR of the abdomen without contrast. COMPARISON: A/P WO CT ABD/PEL W/O 11/19/2018 7:04 PM FINDINGS: Lungs: Compressive atelectasis posterior lower lobes. Pleura: Small bilateral pleural effusions. Liver: Normal liver parenchymal signal intensity with no focal lesions. Normal portal and hepatic vein flow voids. Gallbladder and bile ducts: No wall thickening, pericholecystic fluid, or gallstones. No intra-or extrahepatic biliary dilation. Pancreas: Normal pancreatic parenchymal signal intensity with no main ductal dilation, focal lesions, or distal parenchymal atrophy. Spleen: Normal splenic signal intensity. No splenomegaly. Kidneys and ureters: Normal signal intensity with no pelvocaliectasis or solid cortical masses. Stomach and bowel: Stomach is grossly normal. Visualized small bowel is normal in caliber. No masses or segmental wall thickening throughout the visualized colon. Retroperitoneal space: Mesenteric and retroperitoneal edema as seen previously. Intraperitoneal space: No fluid collection. Veins: Normal aortic and IVC flow voids. Bones/joints: The spine demonstrates mild degenerative changes at multiple levels. Normal marrow signal intensity. Soft tissues: Subcutaneous edema throughout the visualized abdomen. IMPRESSION: 1. No MRI findings to correlate with patient's symptomatology. Specifically no choledocholithiasis. 2. Findings of third spacing. *[facility]* [place] [address] Fax #: [phone] Transthoracic Echocardiogram Patient: Laurel Ventura : 1940 Study Date: 11/21/2018 Age: 78 Gender: F HR: 83 bpm Height: 66 in /167.6 cm BSA: 1.75 m^2 Weight: 143.7 lb /65.3 kg BMI: 23.2 kg/m^2 *Chisel Mortiser Operator: * Krystal Rushing RDCS RN *Referring Physician: * Matilde Bustos *Reading Physician: * Saji Klein MD Indications: Tachycardia, ventricular paroxysmal. History: Risk factors: Hypertension. Diabetes mellitus. Dyslipidemia. Conclusions Summary: - Left ventricle: Systolic function is normal. The estimated ejection fraction is 55-60%. Doppler parameters are consistent with abnormal left ventricular relaxation (grade 1 diastolic dysfunction). - Mitral valve: There is mild regurgitation. - Aortic valve: There is trace to mild regurgitation. - Tricuspid valve: There is mild regurgitation. - Pulmonic valve: There is mild to moderate regurgitation. - Pulmonary arteries: Systolic pressure is at the upper limits of normal, estimated to be 35 mm Hg, in the range of 35 mm Hg to 40 mm Hg. Assess/Plan/Problems-Billing Assessment: Mrs. Ventura is a 78-year-old lady with a past medical history of type 2 diabetes, hyperlipidemia, hypertension, GERD, osteoarthritis, who presented to the emergency room with complaints of malaise, nausea, dry heaving, and confusion. Found to have acute renal failure and leukocytosis and electrolyte abnormalities. - Patient Problems (1) MICHEAL (acute kidney injury) Code(s): N17.9 - ACUTE KIDNEY FAILURE, UNSPECIFIED SNOMED Code(s): 11284145 Comment: - Multifactoral, combined dehydration, NSAID use, lisinpril and lasix use and complicated by UTI - Creatinine with further improvement today at 3.86 - Nephrology consult appreciated, will need outpatient follow up - CT abd/pelvis with no acute findings - Discontinue IVF and sodium bicarb - avoid nephrotoxic medications (2) Gram-negative bacteremia Code(s): R78.81 - BACTEREMIA SNOMED Code(s): 144698843037 Comment: - Gram negative bacilli in blood cultures from 11/19/2018, identified as eColi; in presence of eColi UTI - 11/23/18, new fever, will redraw blood cultures and urine cultures and switch to zosyn, as there may be new bacterial infection - Will also culture throat based on new throat pain today - MRCP with no choledocholythiasis or obvious GI source - ID consult appreciated (3) V-tach Code(s): I47.2 - VENTRICULAR TACHYCARDIA SNOMED Code(s): 27809338 Comment: - Low magnesium on labs and persistent metabolic derangement, 1 episode only - Had 2gm mag with no further ectopy - ECHO as above, no wall motion abnormalities - Discussed with GI, episode was self limited and occured during sleep, while patient clearly has a gram negative bacteremia, will likely be able to proceed with EGD, colonoscopy without issue or needing further cardiac workup (4) Abdominal pain Code(s): R10.9 - UNSPECIFIED ABDOMINAL PAIN SNOMED Code(s): 98315921 Comment: - c/o upper epigastric pain to mid abd pain - Heme positive stool and low H&H with hx of GERD and NSAID use, constellation of findings consistent with UGIB - Changed to IV protonix - MRCP negative, will still likely need EGD and colonoscopy before discharge, however abdominal pain has been resolved last 48 hours continue to monitor (5) Anemia Code(s): D64.9 - ANEMIA, UNSPECIFIED SNOMED Code(s): 362155580 Comment: - Drop in H&H today, HgB 6.1 this morning - Will transfuse 1 unit PRBCs - May be dilutional in addition to bacteremia, MICHEAL and GIB - Continue to monitor CBC (6) Confusion Code(s): R41.0 - DISORIENTATION, UNSPECIFIED SNOMED Code(s): 672186231 Comment: - Toxic metabolic encephalopathy likely related to MICHEAL, UTI, bacteremia and UGIB - Mentation improved, but will continue to monitor closely (7) GERD (gastroesophageal reflux disease) Code(s): K21.9 - GASTRO-ESOPHAGEAL REFLUX DISEASE WITHOUT ESOPHAGITIS SNOMED Code(s): 945105266 Comment: - Concerned given NSAID use, and low H&H and heme pos stool - Changed to IV protonix (8) Hyponatremia Code(s): E87.1 - HYPO-OSMOLALITY AND HYPONATREMIA SNOMED Code(s): 13471996 Comment: - Hypovolemic hyponatremia 2/2 acute dehydration - Resolved (9) Leukocytosis Code(s): D72.829 - ELEVATED WHITE BLOOD CELL COUNT, UNSPECIFIED SNOMED Code(s) : 208296594 Comment: - WBCs have remained high even with appropriate antibiotic coverage - MRCP negative for biliary source - New fever today with sore throat but cannot rule out additional bacteria in urine or blood - Follow new blood, urine and throat cultures today anc continue zosyn, ceftriaxone DCd - Appreciate any further recommendations by ID (10) UTI (urinary tract infection) Comment: - Urine culture positive for e-coli, however given new fever and continued lambert, urine recultured today - Continue zosyn for now (11) HTN (hypertension) Code(s): I10 - ESSENTIAL (PRIMARY) HYPERTENSION SNOMED Code(s): 71075126 Comment: - IV hydralazine PRN - Started amlodipine today, as it is not renally excreted (12) DM type 2 (diabetes mellitus, type 2) Comment: - Accuchecks ACHS (13) DVT prophylaxis Code(s): GMW5244 - SNOMED Code(s): 431155493 Comment: - SCDs only in presence of anemia and likely GIB (14) Full code status Code(s): Z78.9 - OTHER SPECIFIED HEALTH STATUS SNOMED Code(s): 037721735 Status and Disposition: Inpatient guarded.
[2018-11-23] MEDS: ZOSYN 3.375 GM Q12H per EXTENDED INFUSION IVPB SCH ×2 (17:50)
[2018-11-24] MEDS: ZOSYN 3.375 GM Q12H per EXTENDED INFUSION IVPB SCH ×4 (05:27→17:08)
[2018-11-24 07:27] LABS: ABS Eosinophils 0.1 10^3/ul (0-0.6); ABS Lymphocytes 1.2 10^3/ul (1.0-4.8); ABS Monocytes 1.3 10^3/ul (0-0.8); ABS Neutrophils 18.5 10^3/ul (1.5-7.7); Eosinophil % 0.4 %; Hematocrit 24 % (35-47); Hemoglobin 8.2 g/dL (12.0-16.0); Lymphocyte % 5.7 %; Mean Corpuscular HGB Conc 35 g/dL (31-36); Mean Corpuscular Hemoglobin 29 pg (27-31); Mean Corpuscular Volume 82 fL (80-97); Mean Platelet Volume 7.6 fL (7.4-10.4); Platelet Count 300 10^3/uL (150-450); Red Blood Count 2.89 10^6 /uL (3.70-4.87); Red Cell Distribution Width 16 % (10-15); White Blood Count 21.1 10^3/uL (3.5-10.8)
[2018-11-24 07:40] LABS: Potassium 3.9 mmol/L (3.5-5.0)
[2018-11-24 07:45] LABS: BUN/Creatinine Ratio 14.6 (8-20); EGFR African American 16.1 (>60); EGFR Non-African American 13.3 (>60)
[2018-11-24] MEDS ORDERED: Dextrose 50% VIAL 50 ml IV PUSH PRN ×2 (07:46→13:10)
[2018-11-24] MEDS: amLODIPine TAB* 5 MG PO SCH (08:50)
[2018-11-24] MEDS: Pantoprazole IV* 40 MG IV SCH (09:58)
[2018-11-24] MEDS: Insulin LISPRO* 1 UNITS UNIT SUBCUT SCH ×3 (12:35→21:00)
--- NOTE | 2018-11-24 17:11 | PN ---
Subjective Date of Service: 11/24/18 Interval History: Patient seen and examined. States she feels somewhat better since blood transfusion yesterday. No fevers today, no chills. Dizziness and nausea have also resolved. Family History: Unchanged from Admission Social History: Unchanged from Admission Past Medical History: Unchanged from Admission Objective Active Medications: Acetaminophen (Tylenol Tab*) 650 mg PO Q6H PRN PRN Reason: Mild pain/fever>100.4 Last Admin: 11/23/18 11:47 Dose: 650 mg Amlodipine Besylate (Norvasc Tab*) 5 mg PO DAILY [facility] Last Admin: 11/24/18 08:50 Dose: 5 mg Dextrose (Dextrose 50% Vial 50 Ml*) 25 ml IV PUSH .FOR FS < 60 - SS PRN PRN Reason: FS < 60 Hydralazine HCl (Apresoline Iv*) 5 mg IV SLOW PU Q6H PRN PRN Reason: SBP >170 DBP >90 Last Admin: 11/21/18 20:12 Dose: 5 mg Piperacillin Sod/Tazobactam (Sod 3.375 gm/ Sodium Chloride) 100 mls @ 25 mls/ hr IVPB Q12H [facility] Last Admin: 11/24/18 05:27 Dose: 25 mls/hr Insulin Human Lispro (Humalog*) 0 units SUBCUT ACHS [facility]; Protocol Last Admin: 11/24/18 16:55 Dose: Not Given Lidocaine (Xylocaine 2% Viscous*) 15 ml SWISH SPIT TID PRN PRN Reason: oral pain Pantoprazole Sodium (Protonix Iv*) 40 mg IV DAILY [facility] Last Admin: 11/24/18 09:58 Dose: 40 mg Pharmacy Consult (Zosyn Per Pharmacy*) 1 note FOLLOW UP .ZOSYN PER PHARMACY [facility] Prochlorperazine Edisylate (Compazine Inj*) 5 mg IV Q8H PRN PRN Reason: NAUSEA/VOMITING Last Admin: 11/21/18 21:44 Dose: 5 mg Vital Signs - 8 hr 11/24/18 12:00 Temperature 98.4 F Pulse Rate 91 Respiratory 20 Rate Blood Pressure 165/68 (mmHg) O2 Sat by Pulse 99 Oximetry Oxygen Devices in Use Now: None Appearance: alert, NAD Eyes: No Scleral Icterus, PERRLA Ears/Nose/Mouth/Throat: NL Teeth, Lips, Gums, Mucous Membranes Moist Neck: NL Appearance and Movements; NL JVP, Trachea Midline Respiratory: Symmetrical Chest Expansion and Respiratory Effort, Clear to Auscultation Cardiovascular: NL Sounds; No Murmurs; No JVD, RRR, No Edema Abdominal: NL Sounds; No Tenderness; No Distention Extremities: No Edema, No Clubbing, Cyanosis Skin: No Nodules or Sclerosis Neurological: - - A&Ox2 Nutrition: Taking PO's Result Diagrams: 11/24/18 06:57 11/24/18 06:57 Additional Lab and Data: Lab Results 11/18/18 11/18/18 11/18/18 Range/Units 15:15 15:28 15:28 WBC 22.2 H (3.5-10.8) 10^3/uL RBC 3.07 L (3.70-4.87) 10^6 /uL Hgb 9.0 L (12.0-16.0) g/dL Hct 26 L (35-47) % MCV 84 (80-97) fL MCH 29 (27-31) pg MCHC 35 (31-36) g/dL RDW 17 H (10-15) % Plt Count 140 L (150-450) 10^3/uL MPV 8.1 (7.4-10.4) fL Neut % (Auto) Pending Lymph % (Auto) Pending [place] % (Auto) Pending Eos % (Auto) Pending Baso % (Auto) Pending Absolute Neuts (auto) Pending Absolute Lymphs (auto) Pending Absolute Monos (auto) Pending Absolute Eos (auto) Pending Absolute Basos (auto) Pending Absolute Nucleated RBC Pending Nucleated RBC % Pending Sodium 124 L (135-145) mmol/L Potassium 4.6 (3.5-5.0) mmol/L Chloride 91 L (101-111) mmol/L Carbon Dioxide 15 L (22-32) mmol/L Anion Gap 18 H (2-11) mmol/L BUN 89 H (6-24) mg/dL Creatinine 7.76 H (0.51-0.95) mg/dL Est GFR ( Amer) 6.1 (>60) Est GFR (Non-Af Amer) 5.1 (>60) BUN/Creatinine Ratio 11.5 (8-20) Glucose 63 L (70-100) mg/dL POC Glucose (mg/dL) 62 L (70-100) mg/dL Calcium 8.1 L (8.6-10.3) mg/dL Total Bilirubin 2.70 H (0.2-1.0) mg/dL AST 27 (13-39) U/L ALT 28 (7-52) U/L Alkaline Phosphatase 541 H (34-104) U/L Troponin I 0.06 H* (<0.04) ng/mL C-Reactive Protein 317.64 H (<8.01) mg/L B-Natriuretic Peptide (<=100) pg/mL Total Protein 5.8 L (6.4-8.9) g/dL Albumin 2.9 L (3.2-5.2) g/dL Globulin 2.9 (2-4) g/dL Albumin/Globulin Ratio 1.0 (1-3) / Range/Units 15:28 WBC (3.5-10.8) 10^3/uL RBC (3.70-4.87) 10^6 /uL Hgb (12.0-16.0) g/dL Hct (35-47) % MCV (80-97) fL MCH (27-31) pg MCHC (31-36) g/dL RDW (10-15) % Plt Count (150-450) 10^3/uL MPV (7.4-10.4) fL Neut % (Auto) Lymph % (Auto) [place] % (Auto) Eos % (Auto) Baso % (Auto) Absolute Neuts (auto) Absolute Lymphs (auto) Absolute Monos (auto) Absolute Eos (auto) Absolute Basos (auto) Absolute Nucleated RBC Nucleated RBC % Sodium (135-145) mmol/L Potassium (3.5-5.0) mmol/L Chloride (101-111) mmol/L Carbon Dioxide (22-32) mmol/L Anion Gap (2-11) mmol/L BUN (6-24) mg/dL Creatinine (0.51-0.95) mg/dL Est GFR ( Amer) (>60) Est GFR (Non-Af Amer) (>60) BUN/Creatinine Ratio (8-20) Glucose (70-100) mg/dL POC Glucose (mg/dL) (70-100) mg/dL Calcium (8.6-10.3) mg/dL Total Bilirubin (0.2-1.0) mg/dL AST (13-39) U/L ALT (7-52) U/L Alkaline Phosphatase (34-104) U/L Troponin I (<0.04) ng/mL C-Reactive Protein (<8.01) mg/L B-Natriuretic Peptide 656 H (<=100) pg/mL Total Protein (6.4-8.9) g/dL Albumin (3.2-5.2) g/dL Globulin (2-4) g/dL Albumin/Globulin Ratio (1-3) Microbiology and Other Data: Microbiology 11/18/18 17:30 Urine Culture - Preliminary Urine Escherichia Coli Diagnostic Imaging: Patient Name: LAUREL VENTURA Medical Record#: [id number] Ordering Physician: Brando Cardona DO Acct.#: [id number] : 1940 Age: 78 Sex: F Location: [address] [place] [address]/TELEMETRY Exam Date: 11/21/181801 ADM Status: ADM IN Order Information: MRI CHOLANGIOGRAM (MRCP) Accession Number: [id number] CPT: 68633 EXAM: MR Abdomen Without Contrast, MRCP. EXAM DATE/TIME: 11/21/2018 9:08 PM CLINICAL HISTORY: 78 years old, female; Abnormal findings; Abnormal lab test; Other: Elevated alkaline phosphatase; Patient HX: PT C/O of malaise, nausea, dry heaving, and confusion; Additional info: Elevated alkaline phosphatase, ecoli bacteremia. PT motion from breathing- repeats done and best images sent. PT rn states PT has been npo all day TECHNIQUE: Imaging protocol: MR of the abdomen without contrast. COMPARISON: A/P WO CT ABD/PEL W/O 11/19/2018 7:04 PM FINDINGS: Lungs: Compressive atelectasis posterior lower lobes. Pleura: Small bilateral pleural effusions. Liver: Normal liver parenchymal signal intensity with no focal lesions. Normal portal and hepatic vein flow voids. Gallbladder and bile ducts: No wall thickening, pericholecystic fluid, or gallstones. No intra-or extrahepatic biliary dilation. Pancreas: Normal pancreatic parenchymal signal intensity with no main ductal dilation, focal lesions, or distal parenchymal atrophy. Spleen: Normal splenic signal intensity. No splenomegaly. Kidneys and ureters: Normal signal intensity with no pelvocaliectasis or solid cortical masses. Stomach and bowel: Stomach is grossly normal. Visualized small bowel is normal in caliber. No masses or segmental wall thickening throughout the visualized colon. Retroperitoneal space: Mesenteric and retroperitoneal edema as seen previously. Intraperitoneal space: No fluid collection. Veins: Normal aortic and IVC flow voids. Bones/joints: The spine demonstrates mild degenerative changes at multiple levels. Normal marrow signal intensity. Soft tissues: Subcutaneous edema throughout the visualized abdomen. IMPRESSION: 1. No MRI findings to correlate with patient's symptomatology. Specifically no choledocholithiasis. 2. Findings of third spacing. *[facility]* [place] [address] Fax #: [phone] Transthoracic Echocardiogram Patient: Laurel Ventura : 1940 Study Date: 11/21/2018 Age: 78 Gender: F HR: 83 bpm Height: 66 in /167.6 cm BSA: 1.75 m^2 Weight: 143.7 lb /65.3 kg BMI: 23.2 kg/m^2 *Maintenance Mechanic: * Krystal Rushing RDCS RN *Referring Physician: * Matilde Bustos *Reading Physician: * Saji Klein MD Indications: Tachycardia, ventricular paroxysmal. History: Risk factors: Hypertension. Diabetes mellitus. Dyslipidemia. Conclusions Summary: - Left ventricle: Systolic function is normal. The estimated ejection fraction is 55-60%. Doppler parameters are consistent with abnormal left ventricular relaxation (grade 1 diastolic dysfunction). - Mitral valve: There is mild regurgitation. - Aortic valve: There is trace to mild regurgitation. - Tricuspid valve: There is mild regurgitation. - Pulmonic valve: There is mild to moderate regurgitation. - Pulmonary arteries: Systolic pressure is at the upper limits of normal, estimated to be 35 mm Hg, in the range of 35 mm Hg to 40 mm Hg. Assess/Plan/Problems-Billing Assessment: Mrs. Ventura is a 78-year-old lady with a past medical history of type 2 diabetes, hyperlipidemia, hypertension, GERD, osteoarthritis, who presented to the emergency room with complaints of malaise, nausea, dry heaving, and confusion. Found to have acute renal failure and leukocytosis and electrolyte abnormalities with gram negative bacteremia and UTI. - Patient Problems (1) MICHEAL (acute kidney injury) Code(s): N17.9 - ACUTE KIDNEY FAILURE, UNSPECIFIED SNOMED Code(s): 39335014 Comment: - Multifactoral, combined dehydration, NSAID use, lisinpril and lasix use and complicated by UTI - Creatinine with further improvement today at 3.36 - Nephrology consult appreciated, will need outpatient follow up - CT abd/pelvis with no acute findings - IVF and sodium bicarb discontinued - Avoid nephrotoxic medications (2) Gram-negative bacteremia Code(s): R78.81 - BACTEREMIA SNOMED Code(s): 715445792751 Comment: - Gram negative bacilli in blood cultures from 11/19/2018, identified as eColi; in presence of eColi UTI - 11/23/18, new fever, blood cultures and urine cultures drawn, changed to zosyn , as there may be new bacterial infection, throat cultured as well - MRCP with no choledocholythiasis or obvious GI source - ID consult appreciated (3) V-tach Code(s): I47.2 - VENTRICULAR TACHYCARDIA SNOMED Code(s): 13239458 Comment: - Low magnesium on labs and persistent metabolic derangement, 1 episode only - Had 2gm mag with no further ectopy - ECHO as above, no wall motion abnormalities - Discussed with GI, episode was self limited and occured during sleep, while patient clearly has a gram negative bacteremia, will likely be able to proceed with EGD, colonoscopy without issue or needing further cardiac workup (4) Abdominal pain Code(s): R10.9 - UNSPECIFIED ABDOMINAL PAIN SNOMED Code(s): 78964341 Comment: - c/o upper epigastric pain to mid abd pain - Heme positive stool and low H&H with hx of GERD and NSAID use, constellation of findings consistent with UGIB - Changed to IV protonix - MRCP negative, will still likely need EGD and colonoscopy before discharge, however abdominal pain has been resolved last 48 hours continue to monitor - Diet advanced (5) Anemia Code(s): D64.9 - ANEMIA, UNSPECIFIED SNOMED Code(s): 616142234 Comment: - Drop in HgB to 6.1 on 11/23, s/p 1 unit PRBCs with adequate response - May also be dilutional in addition to bacteremia, MICHEAL and GIB - Continue to monitor CBC daily (6) Confusion Code(s): R41.0 - DISORIENTATION, UNSPECIFIED SNOMED Code(s): 126838500 Comment: - Toxic metabolic encephalopathy likely related to MICHEAL, UTI, bacteremia and UGIB - Mentation improved, but will continue to monitor closely (7) GERD (gastroesophageal reflux disease) Code(s): K21.9 - GASTRO-ESOPHAGEAL REFLUX DISEASE WITHOUT ESOPHAGITIS SNOMED Code(s): 172893221 Comment: - Concerned given NSAID use, and low H&H and heme pos stool - Changed to IV protonix (8) Hyponatremia Code(s): E87.1 - HYPO-OSMOLALITY AND HYPONATREMIA SNOMED Code(s): 39677332 Comment: - Hypovolemic hyponatremia 2/2 acute dehydration - Resolved (9) Leukocytosis Code(s): D72.829 - ELEVATED WHITE BLOOD CELL COUNT, UNSPECIFIED SNOMED Code(s) : 937451976 Comment: - WBCs have remained high even with appropriate antibiotic coverage - MRCP negative for biliary source - New fever 11/23 with sore throat but cannot rule out additional bacteria in urine or blood - Follow new blood, urine and throat cultures today and continue zosyn, ceftriaxone DCd - Appreciate any further recommendations by ID on Sunday (10) UTI (urinary tract infection) Comment: - Urine culture positive for e-coli, however given new fever and continued lambert, urine recultured today - Continue zosyn for now (11) HTN (hypertension) Code(s): I10 - ESSENTIAL (PRIMARY) HYPERTENSION SNOMED Code(s): 90998235 Comment: - IV hydralazine PRN - Started amlodipine today, as it is not renally excreted (12) DM type 2 (diabetes mellitus, type 2) Comment: - Accuchecks ACHS (13) DVT prophylaxis Code(s): ERE3615 - SNOMED Code(s): 165087349 Comment: - SCDs only in presence of anemia and likely GIB (14) Full code status Code(s): Z78.9 - OTHER SPECIFIED HEALTH STATUS SNOMED Code(s): 306934863 Status and Disposition: Inpatient guarded.
[2018-11-24] MEDS: hydrALAZINE IV* 20 MG/ML VIAL IV SLOW PU PRN (21:21)
[2018-11-24] MEDS: PROCHLORPERAZINE INJ 5 MG/ML 2 ML VIAL IV PRN (21:22)
[2018-11-25] MEDS: ZOSYN 3.375 GM Q12H per EXTENDED INFUSION IVPB SCH ×4 (05:56→18:25)
[2018-11-25] MEDS: Insulin LISPRO* 1 UNITS UNIT SUBCUT SCH ×4 (07:36→21:00)
[2018-11-25] MEDS: amLODIPine TAB* 5 MG PO SCH (09:11)
[2018-11-25] MEDS: Pantoprazole IV* 40 MG IV SCH (09:11)
--- NOTE | 2018-11-25 11:42 | PN ---
Subjective Date of Service: 11/25/18 Interval History: Denies any pain. Wants to go home. Family History: Unchanged from Admission Social History: Unchanged from Admission Past Medical History: Unchanged from Admission Objective Active Medications: Acetaminophen (Tylenol Tab*) 650 mg PO Q6H PRN PRN Reason: Mild pain/fever>100.4 Last Admin: 11/23/18 11:47 Dose: 650 mg Amlodipine Besylate (Norvasc Tab*) 5 mg PO DAILY [facility] Last Admin: 11/25/18 09:11 Dose: 5 mg Dextrose (Dextrose 50% Vial 50 Ml*) 25 ml IV PUSH .FOR FS < 60 - SS PRN PRN Reason: FS < 60 Hydralazine HCl (Apresoline Iv*) 5 mg IV SLOW PU Q6H PRN PRN Reason: SBP >170 DBP >90 Last Admin: 11/24/18 21:21 Dose: 5 mg Piperacillin Sod/Tazobactam (Sod 3.375 gm/ Sodium Chloride) 100 mls @ 25 mls/ hr IVPB Q12H [facility] Last Admin: 11/25/18 05:56 Dose: 25 mls/hr Insulin Human Lispro (Humalog*) 0 units SUBCUT ACHS [facility]; Protocol Last Admin: 11/25/18 07:36 Dose: Not Given Lidocaine (Xylocaine 2% Viscous*) 15 ml SWISH SPIT TID PRN PRN Reason: oral pain Pantoprazole Sodium (Protonix Iv*) 40 mg IV DAILY [facility] Last Admin: 11/25/18 09:11 Dose: 40 mg Pharmacy Consult (Zosyn Per Pharmacy*) 1 note FOLLOW UP .ZOSYN PER PHARMACY [facility] Prochlorperazine Edisylate (Compazine Inj*) 5 mg IV Q8H PRN PRN Reason: NAUSEA/VOMITING Last Admin: 11/24/18 21:22 Dose: 5 mg Vital Signs - 8 hr 11/25/18 07:39 Temperature 98.7 F Pulse Rate 90 Respiratory 20 Rate Blood Pressure 157/60 (mmHg) O2 Sat by Pulse 96 Oximetry Oxygen Devices in Use Now: None Eyes: No Scleral Icterus, PERRLA Neck: NL Appearance and Movements; NL JVP Respiratory: Clear to Auscultation Cardiovascular: NL Sounds; No Murmurs; No JVD, RRR Abdominal: NL Sounds; No Tenderness; No Distention, No Hepatosplenomegaly Extremities: No Edema Skin: No Rash or Ulcers Neurological: Alert and Oriented x 3 Result Diagrams: 11/25/18 13:05 11/25/18 13:05 Additional Lab and Data: Lab Results 11/18/18 11/18/18 11/18/18 Range/Units 15:15 15:28 15:28 WBC 22.2 H (3.5-10.8) 10^3/uL RBC 3.07 L (3.70-4.87) 10^6 /uL Hgb 9.0 L (12.0-16.0) g/dL Hct 26 L (35-47) % MCV 84 (80-97) fL MCH 29 (27-31) pg MCHC 35 (31-36) g/dL RDW 17 H (10-15) % Plt Count 140 L (150-450) 10^3/uL MPV 8.1 (7.4-10.4) fL Neut % (Auto) Pending Lymph % (Auto) Pending [place] % (Auto) Pending Eos % (Auto) Pending Baso % (Auto) Pending Absolute Neuts (auto) Pending Absolute Lymphs (auto) Pending Absolute Monos (auto) Pending Absolute Eos (auto) Pending Absolute Basos (auto) Pending Absolute Nucleated RBC Pending Nucleated RBC % Pending Sodium 124 L (135-145) mmol/L Potassium 4.6 (3.5-5.0) mmol/L Chloride 91 L (101-111) mmol/L Carbon Dioxide 15 L (22-32) mmol/L Anion Gap 18 H (2-11) mmol/L BUN 89 H (6-24) mg/dL Creatinine 7.76 H (0.51-0.95) mg/dL Est GFR ( Amer) 6.1 (>60) Est GFR (Non-Af Amer) 5.1 (>60) BUN/Creatinine Ratio 11.5 (8-20) Glucose 63 L (70-100) mg/dL POC Glucose (mg/dL) 62 L (70-100) mg/dL Calcium 8.1 L (8.6-10.3) mg/dL Total Bilirubin 2.70 H (0.2-1.0) mg/dL AST 27 (13-39) U/L ALT 28 (7-52) U/L Alkaline Phosphatase 541 H (34-104) U/L Troponin I 0.06 H* (<0.04) ng/mL C-Reactive Protein 317.64 H (<8.01) mg/L B-Natriuretic Peptide (<=100) pg/mL Total Protein 5.8 L (6.4-8.9) g/dL Albumin 2.9 L (3.2-5.2) g/dL Globulin 2.9 (2-4) g/dL Albumin/Globulin Ratio 1.0 (1-3) 11/18/18 Range/Units 15:28 WBC (3.5-10.8) 10^3/uL RBC (3.70-4.87) 10^6 /uL Hgb (12.0-16.0) g/dL Hct (35-47) % MCV (80-97) fL MCH (27-31) pg MCHC (31-36) g/dL RDW (10-15) % Plt Count (150-450) 10^3/uL MPV (7.4-10.4) fL Neut % (Auto) Lymph % (Auto) [place] % (Auto) Eos % (Auto) Baso % (Auto) Absolute Neuts (auto) Absolute Lymphs (auto) Absolute Monos (auto) Absolute Eos (auto) Absolute Basos (auto) Absolute Nucleated RBC Nucleated RBC % Sodium (135-145) mmol/L Potassium (3.5-5.0) mmol/L Chloride (101-111) mmol/L Carbon Dioxide (22-32) mmol/L Anion Gap (2-11) mmol/L BUN (6-24) mg/dL Creatinine (0.51-0.95) mg/dL Est GFR ( Amer) (>60) Est GFR (Non-Af Amer) (>60) BUN/Creatinine Ratio (8-20) Glucose (70-100) mg/dL POC Glucose (mg/dL) (70-100) mg/dL Calcium (8.6-10.3) mg/dL Total Bilirubin (0.2-1.0) mg/dL AST (13-39) U/L ALT (7-52) U/L Alkaline Phosphatase (34-104) U/L Troponin I (<0.04) ng/mL C-Reactive Protein (<8.01) mg/L B-Natriuretic Peptide 656 H (<=100) pg/mL Total Protein (6.4-8.9) g/dL Albumin (3.2-5.2) g/dL Globulin (2-4) g/dL Albumin/Globulin Ratio (1-3) Microbiology and Other Data: Microbiology 11/18/18 17:30 Urine Culture - Preliminary Urine Escherichia Coli Diagnostic Imaging: Patient Name: LAUREL VENTURA Medical Record#: [id number] Ordering Physician: Brando Cardona DO Acct.#: [id number] : 1940 Age: 78 Sex: F Location: [address] [place] [address]/TELEMETRY Exam Date: 11/21/181801 ADM Status: ADM IN Order Information: MRI CHOLANGIOGRAM (MRCP) Accession Number: [id number] CPT: 42839 EXAM: MR Abdomen Without Contrast, MRCP. EXAM DATE/TIME: 11/21/2018 9:08 PM CLINICAL HISTORY: 78 years old, female; Abnormal findings; Abnormal lab test; Other: Elevated alkaline phosphatase; Patient HX: PT C/O of malaise, nausea, dry heaving, and confusion; Additional info: Elevated alkaline phosphatase, ecoli bacteremia. PT motion from breathing- repeats done and best images sent. PT rn states PT has been npo all day TECHNIQUE: Imaging protocol: MR of the abdomen without contrast. COMPARISON: A/P WO CT ABD/PEL W/O 11/19/2018 7:04 PM FINDINGS: Lungs: Compressive atelectasis posterior lower lobes. Pleura: Small bilateral pleural effusions. Liver: Normal liver parenchymal signal intensity with no focal lesions. Normal portal and hepatic vein flow voids. Gallbladder and bile ducts: No wall thickening, pericholecystic fluid, or gallstones. No intra-or extrahepatic biliary dilation. Pancreas: Normal pancreatic parenchymal signal intensity with no main ductal dilation, focal lesions, or distal parenchymal atrophy. Spleen: Normal splenic signal intensity. No splenomegaly. Kidneys and ureters: Normal signal intensity with no pelvocaliectasis or solid cortical masses. Stomach and bowel: Stomach is grossly normal. Visualized small bowel is normal in caliber. No masses or segmental wall thickening throughout the visualized colon. Retroperitoneal space: Mesenteric and retroperitoneal edema as seen previously. Intraperitoneal space: No fluid collection. Veins: Normal aortic and IVC flow voids. Bones/joints: The spine demonstrates mild degenerative changes at multiple levels. Normal marrow signal intensity. Soft tissues: Subcutaneous edema throughout the visualized abdomen. IMPRESSION: 1. No MRI findings to correlate with patient's symptomatology. Specifically no choledocholithiasis. 2. Findings of third spacing. *[facility]* [place] [address] Fax #: [phone] Transthoracic Echocardiogram Patient: Laurel Ventura : 1940 Study Date: 11/21/2018 Age: 78 Gender: F HR: 83 bpm Height: 66 in /167.6 cm BSA: 1.75 m^2 Weight: 143.7 lb /65.3 kg BMI: 23.2 kg/m^2 *[employer]: * Krystal Rushing [facility] RN *Referring Physician: * Matilde Bustos *Reading Physician: * Saji Klein MD Indications: Tachycardia, ventricular paroxysmal. History: Risk factors: Hypertension. Diabetes mellitus. Dyslipidemia. Conclusions Summary: - Left ventricle: Systolic function is normal. The estimated ejection fraction is 55-60%. Doppler parameters are consistent with abnormal left ventricular relaxation (grade 1 diastolic dysfunction). - Mitral valve: There is mild regurgitation. - Aortic valve: There is trace to mild regurgitation. - Tricuspid valve: There is mild regurgitation. - Pulmonic valve: There is mild to moderate regurgitation. - Pulmonary arteries: Systolic pressure is at the upper limits of normal, estimated to be 35 mm Hg, in the range of 35 mm Hg to 40 mm Hg. Assess/Plan/Problems-Billing Assessment: Mrs. Ventura is a 78-year-old lady with a past medical history of type 2 diabetes, hyperlipidemia, hypertension, GERD, osteoarthritis, who presented to the emergency room with complaints of malaise, nausea, dry heaving, and confusion. Found to have acute renal failure and leukocytosis and electrolyte abnormalities with gram negative bacteremia and UTI. - Patient Problems (1) Sepsis due to Escherichia coli with acute renal failure Current Visit: Yes Status: Acute Code(s): A41.51 - SEPSIS DUE TO ESCHERICHIA COLI [E. COLI]; R65.20 - SEVERE SEPSIS WITHOUT SEPTIC SHOCK; N17.9 - ACUTE KIDNEY FAILURE, UNSPECIFIED SNOMED Code(s): 788261029 Comment: - Gram negative bacilli in blood cultures from 11/19/2018, identified as eColi; in presence of eColi UTI - 11/23/18, new fever, blood cultures and urine cultures drawn, changed to zosyn , as there may be new bacterial infection, throat cultured as well. No growth to date from 11/23/18 cultures. - MRCP with no choledocholythiasis or obvious GI source - ID consult appreciated. - WBC still persistantly elevated. (2) MICHEAL (acute kidney injury) Current Visit: Yes Status: Acute Code(s): N17.9 - ACUTE KIDNEY FAILURE, UNSPECIFIED SNOMED Code(s): 36196925 Comment: - Multifactoral, combined dehydration, NSAID use, lisinopril and lasix use and complicated by UTI - Creatinine with further improvement as of today at 2.68 - Nephrology consult appreciated, will need outpatient follow up - CT abd/pelvis with no acute findings - Continue maged hydration for another day - Avoid nephrotoxic medications (3) E. coli UTI Current Visit: Yes Status: Acute Code(s): N39.0 - URINARY TRACT INFECTION, SITE NOT SPECIFIED; B96.20 - UNSP ESCHERICHIA COLI THE CAUSE OF DISEASES CLASSD ELSR SNOMED Code(s): 186401047 Comment: - Urine culture positive for e-coli, however given new fever and continued lambert, urine recultured today - Continue zosyn for now (4) V-tach Current Visit: Yes Status: Acute Code(s): I47.2 - VENTRICULAR TACHYCARDIA SNOMED Code(s): 21609492 Comment: - Low magnesium on labs and persistent metabolic derangement, 1 episode only - Had 2gm mag with no further ectopy - ECHO as above, no wall motion abnormalities - Discussed with GI, episode was self limited and occured during sleep, while patient clearly has a gram negative bacteremia, will likely be able to proceed with EGD, colonoscopy without issue or needing further cardiac workup (5) Abdominal pain Current Visit: Yes Status: Acute Code(s): R10.9 - UNSPECIFIED ABDOMINAL PAIN SNOMED Code(s): 97978555 Comment: - c/o upper epigastric pain to mid abd pain - Heme positive stool and low H&H with hx of GERD and NSAID use, constellation of findings consistent with UGIB - Changed to IV protonix - MRCP negative, will still likely need EGD and colonoscopy before discharge, however abdominal pain has been resolved last 48 hours continue to monitor - Diet advanced (6) Anemia Current Visit: Yes Status: Acute Code(s): D64.9 - ANEMIA, UNSPECIFIED SNOMED Code(s): 050162413 Comment: - Drop in HgB to 6.1 on 11/23, s/p 1 unit PRBCs with adequate response - May also be dilutional in addition to bacteremia, MICHEAL and GIB - Continue to monitor CBC daily (7) GERD (gastroesophageal reflux disease) Current Visit: Yes Status: Acute Code(s): K21.9 - GASTRO-ESOPHAGEAL REFLUX DISEASE WITHOUT ESOPHAGITIS SNOMED Code(s): 019340674 Comment: - Concerned given NSAID use, and low H&H and heme pos stool - Changed to IV protonix (8) Hyponatremia Current Visit: Yes Status: Acute Code(s): E87.1 - HYPO-OSMOLALITY AND HYPONATREMIA SNOMED Code(s): 01818227 Comment: - Hypovolemic hyponatremia 2/2 acute dehydration - Resolved (9) HTN (hypertension) Current Visit: No Status: Acute Code(s): I10 - ESSENTIAL (PRIMARY) HYPERTENSION SNOMED Code(s): 29992108 Comment: - IV hydralazine PRN - Continue amlodipine. (10) DM type 2 (diabetes mellitus, type 2) Current Visit: No Status: Acute Comment: - Accuchecks ACHS (11) DVT prophylaxis Current Visit: No Status: Acute Code(s): NAX9798 - SNOMED Code(s): 239937260 Comment: - SCDs only in presence of anemia and likely GIB (12) Full code status Current Visit: Yes Status: Acute Code(s): Z78.9 - OTHER SPECIFIED HEALTH STATUS SNOMED Code(s): 478407528 Status and Disposition: Inpatient guarded.
[2018-11-25] MEDS ORDERED: NS 0.9% 1000 ML** 1,000 ML IV SCH (12:00)
[2018-11-25 13:11] LABS: ABS Basophils 0.1 10^3/ul (0-0.2); ABS Lymphocytes 1.1 10^3/ul (1.0-4.8); ABS Monocytes 1.2 10^3/ul (0-0.8); ABS Neutrophils 19.6 10^3/ul (1.5-7.7); Eosinophil % 0.1 %; Hematocrit 24 % (35-47); Hemoglobin 8.2 g/dL (12.0-16.0); Lymphocyte % 4.8 %; Mean Corpuscular HGB Conc 34 g/dL (31-36); Mean Corpuscular Hemoglobin 28 pg (27-31); Mean Corpuscular Volume 83 fL (80-97); Mean Platelet Volume 7.2 fL (7.4-10.4); Platelet Count 270 10^3/uL (150-450); Red Blood Count 2.93 10^6 /uL (3.70-4.87); Red Cell Distribution Width 17 % (10-15)
[2018-11-25 13:32] LABS: BUN/Creatinine Ratio 13.4 (8-20); Calcium 8.2 mg/dL (8.6-10.3); EGFR African American 20.9 (>60); EGFR Non-African American 17.3 (>60); Potassium 3.6 mmol/L (3.5-5.0)
[2018-11-26] MEDS: ZOSYN 3.375 GM Q12H per EXTENDED INFUSION IVPB SCH ×2 (05:34)
[2018-11-26 06:18] LABS: ABS Basophils 0.1 10^3/ul (0-0.2); ABS Eosinophils 0.1 10^3/ul (0-0.6); ABS Lymphocytes 1.3 10^3/ul (1.0-4.8); ABS Monocytes 1.2 10^3/ul (0-0.8); ABS Neutrophils 14.8 10^3/ul (1.5-7.7); Eosinophil % 0.4 %; Hematocrit 22 % (35-47); Hemoglobin 7.2 g/dL (12.0-16.0); Lymphocyte % 7.5 %; Mean Corpuscular HGB Conc 33 g/dL (31-36); Mean Corpuscular Hemoglobin 27 pg (27-31); Mean Corpuscular Volume 83 fL (80-97); Mean Platelet Volume 7.5 fL (7.4-10.4); Platelet Count 282 10^3/uL (150-450); Red Blood Count 2.63 10^6 /uL (3.70-4.87); Red Cell Distribution Width 17 % (10-15); White Blood Count 17.5 10^3/uL (3.5-10.8)
[2018-11-26 06:31] LABS: BUN/Creatinine Ratio 12.7 (8-20); Calcium 7.9 mg/dL (8.6-10.3); EGFR African American 25.1 (>60); EGFR Non-African American 20.7 (>60); Potassium 3.2 mmol/L (3.5-5.0)
[2018-11-26] MEDS: Insulin LISPRO* 1 UNITS UNIT SUBCUT SCH ×4 (07:39→21:12)
[2018-11-26] MEDS ORDERED: Lactated Ringers 1000 ML Bag* 1,000 ML IV ONE (09:03)
[2018-11-26] MEDS ORDERED: Potassium Chlor TAB* 20 MEQ TAB.ER PO ONE (09:03)
[2018-11-26] MEDS: amLODIPine TAB* 5 MG PO SCH (09:54)
[2018-11-26] MEDS: Pantoprazole IV* 40 MG IV SCH (09:54)
[2018-11-26] MEDS ORDERED: cefTRIAXone(*) 1 GM in NS 0.9% 50 ML* 50 ML IVPB SCH (10:00)
[2018-11-26] MEDS: Acetaminophen TAB* 325 MG PO PRN ×2 (16:44→23:40)
--- NOTE | 2018-11-26 19:43 | PN ---
Subjective Date of Service: 11/26/18 Interval History: Patient reports having "an upset stomach" but is unable to localize abdominal pain. Additionally c/o right hip pain which has been present since she woke up. Does not hurt with ambulation. Denies fever/chills, abd pain, dizziness, chest pain, SOB. Family History: Unchanged from Admission Social History: Unchanged from Admission Past Medical History: Unchanged from Admission Objective Active Medications: Acetaminophen (Tylenol Tab*) 650 mg PO Q6H PRN PRN Reason: Mild pain/fever>100.4 Last Admin: 11/26/18 16:44 Dose: 650 mg Amlodipine Besylate (Norvasc Tab*) 5 mg PO DAILY [facility] Last Admin: 11/26/18 09:54 Dose: 5 mg Cephalexin HCl (Keflex Cap*) 500 mg PO BID [facility] Dextrose (Dextrose 50% Vial 50 Ml*) 25 ml IV PUSH .FOR FS < 60 - SS PRN PRN Reason: FS < 60 Hydralazine HCl (Apresoline Iv*) 5 mg IV SLOW PU Q6H PRN PRN Reason: SBP >170 DBP >90 Last Admin: 11/24/18 21:21 Dose: 5 mg Insulin Human Lispro (Humalog*) 0 units SUBCUT [facility]; Protocol Last Admin: 11/26/18 16:29 Dose: Not Given Lidocaine (Xylocaine 2% Viscous*) 15 ml SWISH SPIT TID PRN PRN Reason: oral pain Pantoprazole Sodium (Protonix Iv*) 40 mg IV DAILY [facility] Last Admin: 11/26/18 09:54 Dose: 40 mg Prochlorperazine Edisylate (Compazine Inj*) 5 mg IV Q8H PRN PRN Reason: NAUSEA/VOMITING Last Admin: 11/24/18 21:22 Dose: 5 mg Vital Signs - 8 hr 11/26/18 11/26/18 15:00 18:15 Temperature 97.6 F 98.1 F Pulse Rate 99 96 Respiratory 16 16 Rate Blood Pressure 172/74 150/77 (mmHg) O2 Sat by Pulse 99 98 Oximetry Oxygen Devices in Use Now: None Appearance: Elderly female laying in hospital bed in NAD Eyes: No Scleral Icterus, PERRLA Ears/Nose/Mouth/Throat: Mucous Membranes Moist Neck: NL Appearance and Movements; NL JVP Respiratory: Symmetrical Chest Expansion and Respiratory Effort, Clear to Auscultation Cardiovascular: NL Sounds; No Murmurs; No JVD, RRR Abdominal: NL Sounds; No Tenderness; No Distention, - - no CVA tenderness, no suprapubic tenderness Extremities: No Edema, No Clubbing, Cyanosis, - - right hip nontender to palp Skin: - - warm, dry, intact Neurological: Alert and Oriented x 3 Result Diagrams: 11/26/18 06:04 11/26/18 06:04 Additional Lab and Data: Lab Results 11/18/18 11/18/18 11/18/18 Range/Units 15:15 15:28 15:28 WBC 22.2 H (3.5-10.8) 10^3/uL RBC 3.07 L (3.70-4.87) 10^6 /uL Hgb 9.0 L (12.0-16.0) g/dL Hct 26 L (35-47) % MCV 84 (80-97) fL MCH 29 (27-31) pg MCHC 35 (31-36) g/dL RDW 17 H (10-15) % Plt Count 140 L (150-450) 10^3/uL MPV 8.1 (7.4-10.4) fL Neut % (Auto) Pending Lymph % (Auto) Pending [place] % (Auto) Pending Eos % (Auto) Pending Baso % (Auto) Pending Absolute Neuts (auto) Pending Absolute Lymphs (auto) Pending Absolute Monos (auto) Pending Absolute Eos (auto) Pending Absolute Basos (auto) Pending Absolute Nucleated RBC Pending Nucleated RBC % Pending Sodium 124 L (135-145) mmol/L Potassium 4.6 (3.5-5.0) mmol/L Chloride 91 L (101-111) mmol/L Carbon Dioxide 15 L (22-32) mmol/L Anion Gap 18 H (2-11) mmol/L BUN 89 H (6-24) mg/dL Creatinine 7.76 H (0.51-0.95) mg/dL Est GFR ( Amer) 6.1 (>60) Est GFR (Non-Af Amer) 5.1 (>60) BUN/Creatinine Ratio 11.5 (8-20) Glucose 63 L (70-100) mg/dL POC Glucose (mg/dL) 62 L (70-100) mg/dL Calcium 8.1 L (8.6-10.3) mg/dL Total Bilirubin 2.70 H (0.2-1.0) mg/dL AST 27 (13-39) U/L ALT 28 (7-52) U/L Alkaline Phosphatase 541 H (34-104) U/L Troponin I 0.06 H* (<0.04) ng/mL C-Reactive Protein 317.64 H (<8.01) mg/L B-Natriuretic Peptide (<=100) pg/mL Total Protein 5.8 L (6.4-8.9) g/dL Albumin 2.9 L (3.2-5.2) g/dL Globulin 2.9 (2-4) g/dL Albumin/Globulin Ratio 1.0 (1-3) 11/18/18 Range/Units 15:28 WBC (3.5-10.8) 10^3/uL RBC (3.70-4.87) 10^6 /uL Hgb (12.0-16.0) g/dL Hct (35-47) % MCV (80-97) fL MCH (27-31) pg MCHC (31-36) g/dL RDW (10-15) % Plt Count (150-450) 10^3/uL MPV (7.4-10.4) fL Neut % (Auto) Lymph % (Auto) [place] % (Auto) Eos % (Auto) Baso % (Auto) Absolute Neuts (auto) Absolute Lymphs (auto) Absolute Monos (auto) Absolute Eos (auto) Absolute Basos (auto) Absolute Nucleated RBC Nucleated RBC % Sodium (135-145) mmol/L Potassium (3.5-5.0) mmol/L Chloride (101-111) mmol/L Carbon Dioxide (22-32) mmol/L Anion Gap (2-11) mmol/L BUN (6-24) mg/dL Creatinine (0.51-0.95) mg/dL Est GFR ( Amer) (>60) Est GFR (Non-Af Amer) (>60) BUN/Creatinine Ratio (8-20) Glucose (70-100) mg/dL POC Glucose (mg/dL) (70-100) mg/dL Calcium (8.6-10.3) mg/dL Total Bilirubin (0.2-1.0) mg/dL AST (13-39) U/L ALT (7-52) U/L Alkaline Phosphatase (34-104) U/L Troponin I (<0.04) ng/mL C-Reactive Protein (<8.01) mg/L B-Natriuretic Peptide 656 H (<=100) pg/mL Total Protein (6.4-8.9) g/dL Albumin (3.2-5.2) g/dL Globulin (2-4) g/dL Albumin/Globulin Ratio (1-3) Microbiology and Other Data: Microbiology 11/18/18 17:30 Urine Culture - Preliminary Urine Escherichia Coli Diagnostic Imaging: Patient Name: LAUREL VENTURA Medical Record#: [id number] Ordering Physician: Brando Cardona DO Acct.#: [id number] : 1940 Age: 78 Sex: F Location: [address] [place] [address]/TELEMETRY Exam Date: 11/21/181801 ADM Status: ADM IN Order Information: MRI CHOLANGIOGRAM (MRCP) Accession Number: [id number] CPT: 09721 EXAM: MR Abdomen Without Contrast, MRCP. EXAM DATE/TIME: 11/21/2018 9:08 PM CLINICAL HISTORY: 78 years old, female; Abnormal findings; Abnormal lab test; Other: Elevated alkaline phosphatase; Patient HX: PT C/O of malaise, nausea, dry heaving, and confusion; Additional info: Elevated alkaline phosphatase, ecoli bacteremia. PT motion from breathing- repeats done and best images sent. PT rn states PT has been npo all day TECHNIQUE: Imaging protocol: MR of the abdomen without contrast. COMPARISON: A/P WO CT ABD/PEL W/O 11/19/2018 7:04 PM FINDINGS: Lungs: Compressive atelectasis posterior lower lobes. Pleura: Small bilateral pleural effusions. Liver: Normal liver parenchymal signal intensity with no focal lesions. Normal portal and hepatic vein flow voids. Gallbladder and bile ducts: No wall thickening, pericholecystic fluid, or gallstones. No intra-or extrahepatic biliary dilation. Pancreas: Normal pancreatic parenchymal signal intensity with no main ductal dilation, focal lesions, or distal parenchymal atrophy. Spleen: Normal splenic signal intensity. No splenomegaly. Kidneys and ureters: Normal signal intensity with no pelvocaliectasis or solid cortical masses. Stomach and bowel: Stomach is grossly normal. Visualized small bowel is normal in caliber. No masses or segmental wall thickening throughout the visualized colon. Retroperitoneal space: Mesenteric and retroperitoneal edema as seen previously. Intraperitoneal space: No fluid collection. Veins: Normal aortic and IVC flow voids. Bones/joints: The spine demonstrates mild degenerative changes at multiple levels. Normal marrow signal intensity. Soft tissues: Subcutaneous edema throughout the visualized abdomen. IMPRESSION: 1. No MRI findings to correlate with patient's symptomatology. Specifically no choledocholithiasis. 2. Findings of third spacing. *[facility]* [place] [address] Fax #: [phone] Transthoracic Echocardiogram Patient: Laurel Ventura : 1940 Study Date: 11/21/2018 Age: 78 Gender: F HR: 83 bpm Height: 66 in /167.6 cm BSA: 1.75 m^2 Weight: 143.7 lb /65.3 kg BMI: 23.2 kg/m^2 *[employer]: * Krystal Rushing RDCS RN *Referring Physician: * Matilde Bustos *Reading Physician: * Saji Klein MD Indications: Tachycardia, ventricular paroxysmal. History: Risk factors: Hypertension. Diabetes mellitus. Dyslipidemia. Conclusions Summary: - Left ventricle: Systolic function is normal. The estimated ejection fraction is 55-60%. Doppler parameters are consistent with abnormal left ventricular relaxation (grade 1 diastolic dysfunction). - Mitral valve: There is mild regurgitation. - Aortic valve: There is trace to mild regurgitation. - Tricuspid valve: There is mild regurgitation. - Pulmonic valve: There is mild to moderate regurgitation. - Pulmonary arteries: Systolic pressure is at the upper limits of normal, estimated to be 35 mm Hg, in the range of 35 mm Hg to 40 mm Hg. Assess/Plan/Problems-Billing Assessment: Mrs. Ventura is a 78-year-old lady with a past medical history of type 2 diabetes, hyperlipidemia, hypertension, GERD, osteoarthritis, who presented to the emergency room with complaints of malaise, nausea, dry heaving, and confusion. Found to have acute renal failure and leukocytosis and electrolyte abnormalities with gram negative bacteremia and UTI. - Patient Problems (1) Bacteremia Current Visit: Yes Status: Acute Code(s): R78.81 - BACTEREMIA SNOMED Code( s): 0569923 Comment: - E. coli bactermia, source is UTI - Dr. Arias switched to po keflex today, to continue for total of 14 d treatment - surveillance blood cultures negative (2) Sepsis Current Visit: Yes Status: Acute Comment: -2/2 E. coli UTI -evidence of sepsis resolved -see bactermia above, now treatment with cefazolin (3) MICHEAL (acute kidney injury) Current Visit: Yes Status: Acute Code(s): N17.9 - ACUTE KIDNEY FAILURE, UNSPECIFIED SNOMED Code(s): 89950503 Comment: - Multifactoral, combined dehydration, NSAID use, lisinopril and lasix use and complicated by UTI - Nephrology consult appreciated, will need outpatient follow up - CT abd/pelvis with no acute findings - Continued to improve, d/c IVF today - Avoid nephrotoxic medications, zosyn discontinued - D/c lambert (4) Abdominal pain Current Visit: Yes Status: Acute Code(s): R10.9 - UNSPECIFIED ABDOMINAL PAIN SNOMED Code(s): 38953428 Comment: - c/o nonspecific abd pain today - Heme positive stool and low H&H with hx of GERD and NSAID use, constellation of findings consistent with UGIB - Changed to IV protonix - MRCP negative, will still likely need EGD and colonoscopy before discharge - Diet advanced (5) Anemia Current Visit: Yes Status: Acute Code(s): D64.9 - ANEMIA, UNSPECIFIED SNOMED Code(s): 798857692 Comment: - Drop in HgB to 6.1 on 11/23, s/p 1 unit PRBCs with adequate response - May also be dilutional in addition to bacteremia, MICHEAL and GIB - Continue to monitor CBC daily - IVF now discontinued and MICHEAL resolving so if H&H further decreases will consult GI - initially with elevated bilirubin, now resolved; possible hemolysis previously (6) HTN (hypertension) Current Visit: No Status: Acute Code(s): I10 - ESSENTIAL (PRIMARY) HYPERTENSION SNOMED Code(s): 57213816 Comment: - IV hydralazine PRN - Continue amlodipine. (7) DM type 2 (diabetes mellitus, type 2) Current Visit: No Status: Acute Comment: - Accuchecks ACHS (8) DVT prophylaxis Current Visit: No Status: Acute Code(s): DQY1507 - SNOMED Code(s): 612392847 Comment: - SCDs only in presence of anemia and possible GIB (9) Full code status Current Visit: Yes Status: Acute Code(s): Z78.9 - OTHER SPECIFIED HEALTH STATUS SNOMED Code(s): 596996974 Status and Disposition: Inpatient guarded.
[2018-11-26 20:00] LABS: Hematocrit 22 % (35-47); Hemoglobin 7.5 g/dL (12.0-16.0); Mean Corpuscular HGB Conc 34 g/dL (31-36); Mean Corpuscular Hemoglobin 28 pg (27-31); Mean Corpuscular Volume 84 fL (80-97); Mean Platelet Volume 7.5 fL (7.4-10.4); Platelet Count 285 10^3/uL (150-450); Red Blood Count 2.63 10^6 /uL (3.70-4.87); Red Cell Distribution Width 17 % (10-15); White Blood Count 19.4 10^3/uL (3.5-10.8)
[2018-11-27] MEDS: PROCHLORPERAZINE INJ 5 MG/ML 2 ML VIAL IV PRN (03:45)
[2018-11-27 06:13] LABS: ABS Basophils 0.1 10^3/ul (0-0.2); ABS Eosinophils 0.1 10^3/ul (0-0.6); ABS Lymphocytes 1.3 10^3/ul (1.0-4.8); ABS Monocytes 1.3 10^3/ul (0-0.8); ABS Neutrophils 14.7 10^3/ul (1.5-7.7); Eosinophil % 0.5 %; Hematocrit 21 % (35-47); Hemoglobin 7.5 g/dL (12.0-16.0); Lymphocyte % 7.3 %; Mean Corpuscular HGB Conc 35 g/dL (31-36); Mean Corpuscular Hemoglobin 29 pg (27-31); Mean Corpuscular Volume 83 fL (80-97); Mean Platelet Volume 7.4 fL (7.4-10.4); Platelet Count 280 10^3/uL (150-450); Red Blood Count 2.54 10^6 /uL (3.70-4.87); Red Cell Distribution Width 17 % (10-15); White Blood Count 17.5 10^3/uL (3.5-10.8)
[2018-11-27 06:28] LABS: BUN/Creatinine Ratio 11.5 (8-20); Calcium 8.2 mg/dL (8.6-10.3); EGFR African American 30.7 (>60); EGFR Non-African American 25.4 (>60); Potassium 3.5 mmol/L (3.5-5.0)
[2018-11-27] MEDS: Pantoprazole IV* 40 MG IV SCH ×2 (08:31→10:14)
[2018-11-27] MEDS: Cephalexin CAP* 250 MG PO SCH ×2 (08:31→21:09)
[2018-11-27] MEDS: Insulin LISPRO* 1 UNITS UNIT SUBCUT SCH ×4 (08:31→22:11)
[2018-11-27] MEDS: amLODIPine TAB* 5 MG PO SCH (08:31)
[2018-11-27] MEDS ORDERED: Clopidogrel TAB* 75 MG PO SCH (10:00)
--- NOTE | 2018-11-27 12:18 | PN ---
Subjective Date of Service: 11/27/18 Interval History: Patient feeling well today. Abdominal pain is resolved. Denies nausea, melena, hematochezia, chest pain, SOB, dizziness. Has been walking with nursing. No complaints of hip pain today. PT evaluated patient without concerns for further PT needs but may benefit from walker. Family History: Unchanged from Admission Social History: Unchanged from Admission Past Medical History: Unchanged from Admission Objective Active Medications: Acetaminophen (Tylenol Tab*) 650 mg PO Q6H PRN PRN Reason: Mild pain/fever>100.4 Last Admin: 11/26/18 23:40 Dose: 650 mg Amlodipine Besylate (Norvasc Tab*) 5 mg PO DAILY [facility] Last Admin: 11/27/18 08:31 Dose: 5 mg Cephalexin HCl (Keflex Cap*) 250 mg PO BID [facility] Last Admin: 11/27/18 08:31 Dose: 250 mg Dextrose (Dextrose 50% Vial 50 Ml*) 25 ml IV PUSH .FOR FS < 60 - SS PRN PRN Reason: FS < 60 Hydralazine HCl (Apresoline Iv*) 5 mg IV SLOW PU Q6H PRN PRN Reason: SBP >170 DBP >90 Last Admin: 11/24/18 21:21 Dose: 5 mg Insulin Human Lispro (Humalog*) 0 units SUBCUT [facility]; Protocol Last Admin: 11/27/18 08:31 Dose: Not Given Lidocaine (Xylocaine 2% Viscous*) 15 ml SWISH SPIT TID PRN PRN Reason: oral pain Pantoprazole Sodium (Protonix Iv*) 40 mg IV DAILY [facility] Last Admin: 11/27/18 10:14 Dose: 40 mg Polyethylene Glycol/Electrolytes (Golytely*) 4,000 ml PO ONCE ONE Stop: 11/27/18 16:01 Prochlorperazine Edisylate (Compazine Inj*) 5 mg IV Q8H PRN PRN Reason: NAUSEA/VOMITING Last Admin: 11/27/18 03:45 Dose: 5 mg Vital Signs - 8 hr 11/27/18 11/27/18 07:00 08:00 Temperature 98.2 F Pulse Rate 96 Respiratory 16 16 Rate Blood Pressure 168/67 (mmHg) O2 Sat by Pulse 98 Oximetry Oxygen Devices in Use Now: None Appearance: Thin elderly white female sitting in chair appearing in NAD Eyes: No Scleral Icterus, PERRLA Ears/Nose/Mouth/Throat: Mucous Membranes Moist Neck: NL Appearance and Movements; NL JVP Respiratory: Symmetrical Chest Expansion and Respiratory Effort, Clear to Auscultation Cardiovascular: NL Sounds; No Murmurs; No JVD, RRR Abdominal: - - abd soft, nontender, nondistended Extremities: No Edema, No Clubbing, Cyanosis Neurological: Alert and Oriented x 3, NL Muscle Strength and Tone Result Diagrams: 11/27/18 05:57 11/27/18 05:57 Additional Lab and Data: Lab Results 11/18/18 11/18/18 11/18/18 Range/Units 15:15 15:28 15:28 WBC 22.2 H (3.5-10.8) 10^3/uL RBC 3.07 L (3.70-4.87) 10^6 /uL Hgb 9.0 L (12.0-16.0) g/dL Hct 26 L (35-47) % MCV 84 (80-97) fL MCH 29 (27-31) pg MCHC 35 (31-36) g/dL RDW 17 H (10-15) % Plt Count 140 L (150-450) 10^3/uL MPV 8.1 (7.4-10.4) fL Neut % (Auto) Pending Lymph % (Auto) Pending Coffey % (Auto) Pending Eos % (Auto) Pending Baso % (Auto) Pending Absolute Neuts (auto) Pending Absolute Lymphs (auto) Pending Absolute Monos (auto) Pending Absolute Eos (auto) Pending Absolute Basos (auto) Pending Absolute Nucleated RBC Pending Nucleated RBC % Pending Sodium 124 L (135-145) mmol/L Potassium 4.6 (3.5-5.0) mmol/L Chloride 91 L (101-111) mmol/L Carbon Dioxide 15 L (22-32) mmol/L Anion Gap 18 H (2-11) mmol/L BUN 89 H (6-24) mg/dL Creatinine 7.76 H (0.51-0.95) mg/dL Est GFR ( Amer) 6.1 (>60) Est GFR (Non-Af Amer) 5.1 (>60) BUN/Creatinine Ratio 11.5 (8-20) Glucose 63 L (70-100) mg/dL POC Glucose (mg/dL) 62 L (70-100) mg/dL Calcium 8.1 L (8.6-10.3) mg/dL Total Bilirubin 2.70 H (0.2-1.0) mg/dL AST 27 (13-39) U/L ALT 28 (7-52) U/L Alkaline Phosphatase 541 H (34-104) U/L Troponin I 0.06 H* (<0.04) ng/mL C-Reactive Protein 317.64 H (<8.01) mg/L B-Natriuretic Peptide (<=100) pg/mL Total Protein 5.8 L (6.4-8.9) g/dL Albumin 2.9 L (3.2-5.2) g/dL Globulin 2.9 (2-4) g/dL Albumin/Globulin Ratio 1.0 (1-3) / Range/Units 15:28 WBC (3.5-10.8) 10^3/uL RBC (3.70-4.87) 10^6 /uL Hgb (12.0-16.0) g/dL Hct (35-47) % MCV (80-97) fL MCH (27-31) pg MCHC (31-36) g/dL RDW (10-15) % Plt Count (150-450) 10^3/uL MPV (7.4-10.4) fL Neut % (Auto) Lymph % (Auto) Coffey % (Auto) Eos % (Auto) Baso % (Auto) Absolute Neuts (auto) Absolute Lymphs (auto) Absolute Monos (auto) Absolute Eos (auto) Absolute Basos (auto) Absolute Nucleated RBC Nucleated RBC % Sodium (135-145) mmol/L Potassium (3.5-5.0) mmol/L Chloride (101-111) mmol/L Carbon Dioxide (22-32) mmol/L Anion Gap (2-11) mmol/L BUN (6-24) mg/dL Creatinine (0.51-0.95) mg/dL Est GFR ( Amer) (>60) Est GFR (Non-Af Amer) (>60) BUN/Creatinine Ratio (8-20) Glucose (70-100) mg/dL POC Glucose (mg/dL) (70-100) mg/dL Calcium (8.6-10.3) mg/dL Total Bilirubin (0.2-1.0) mg/dL AST (13-39) U/L ALT (7-52) U/L Alkaline Phosphatase (34-104) U/L Troponin I (<0.04) ng/mL C-Reactive Protein (<8.01) mg/L B-Natriuretic Peptide 656 H (<=100) pg/mL Total Protein (6.4-8.9) g/dL Albumin (3.2-5.2) g/dL Globulin (2-4) g/dL Albumin/Globulin Ratio (1-3) Microbiology and Other Data: Microbiology 11/18/18 17:30 Urine Culture - Preliminary Urine Escherichia Coli Diagnostic Imaging: Patient Name: LAUREL VENTURA Medical Record#: [id number] Ordering Physician: Brando Cardona DO Acct.#: [id number] : 1940 Age: 78 Sex: F Location: [address] [place] [address]/TELEMETRY Exam Date: 11/21/181801 ADM Status: ADM IN Order Information: MRI CHOLANGIOGRAM (MRCP) Accession Number: [id number] CPT: 86132 EXAM: MR Abdomen Without Contrast, MRCP. EXAM DATE/TIME: 11/21/2018 9:08 PM CLINICAL HISTORY: 78 years old, female; Abnormal findings; Abnormal lab test; Other: Elevated alkaline phosphatase; Patient HX: PT C/O of malaise, nausea, dry heaving, and confusion; Additional info: Elevated alkaline phosphatase, ecoli bacteremia. PT motion from breathing- repeats done and best images sent. PT rn states PT has been npo all day TECHNIQUE: Imaging protocol: MR of the abdomen without contrast. COMPARISON: A/P WO CT ABD/PEL W/O 11/19/2018 7:04 PM FINDINGS: Lungs: Compressive atelectasis posterior lower lobes. Pleura: Small bilateral pleural effusions. Liver: Normal liver parenchymal signal intensity with no focal lesions. Normal portal and hepatic vein flow voids. Gallbladder and bile ducts: No wall thickening, pericholecystic fluid, or gallstones. No intra-or extrahepatic biliary dilation. Pancreas: Normal pancreatic parenchymal signal intensity with no main ductal dilation, focal lesions, or distal parenchymal atrophy. Spleen: Normal splenic signal intensity. No splenomegaly. Kidneys and ureters: Normal signal intensity with no pelvocaliectasis or solid cortical masses. Stomach and bowel: Stomach is grossly normal. Visualized small bowel is normal in caliber. No masses or segmental wall thickening throughout the visualized colon. Retroperitoneal space: Mesenteric and retroperitoneal edema as seen previously. Intraperitoneal space: No fluid collection. Veins: Normal aortic and IVC flow voids. Bones/joints: The spine demonstrates mild degenerative changes at multiple levels. Normal marrow signal intensity. Soft tissues: Subcutaneous edema throughout the visualized abdomen. IMPRESSION: 1. No MRI findings to correlate with patient's symptomatology. Specifically no choledocholithiasis. 2. Findings of third spacing. *[facility]* [place] [address] Fax #: [phone] Transthoracic Echocardiogram Patient: Laurel Ventura : 1940 Study Date: 11/21/2018 Age: 78 Gender: F HR: 83 bpm Height: 66 in /167.6 cm BSA: 1.75 m^2 Weight: 143.7 lb /65.3 kg BMI: 23.2 kg/m^2 *Insurance Loss Assessor: * Krystal Rushing RDCS RN *Referring Physician: * Matilde Bustos *Reading Physician: * Saji Klein MD Indications: Tachycardia, ventricular paroxysmal. History: Risk factors: Hypertension. Diabetes mellitus. Dyslipidemia. Conclusions Summary: - Left ventricle: Systolic function is normal. The estimated ejection fraction is 55-60%. Doppler parameters are consistent with abnormal left ventricular relaxation (grade 1 diastolic dysfunction). - Mitral valve: There is mild regurgitation. - Aortic valve: There is trace to mild regurgitation. - Tricuspid valve: There is mild regurgitation. - Pulmonic valve: There is mild to moderate regurgitation. - Pulmonary arteries: Systolic pressure is at the upper limits of normal, estimated to be 35 mm Hg, in the range of 35 mm Hg to 40 mm Hg. Assess/Plan/Problems-Billing Assessment: Mrs. Ventura is a 78-year-old lady with a past medical history of type 2 diabetes, hyperlipidemia, hypertension, GERD, osteoarthritis, who presented to the emergency room with complaints of malaise, nausea, dry heaving, and confusion. Found to have acute renal failure and leukocytosis and electrolyte abnormalities with gram negative bacteremia and UTI. - Patient Problems (1) Anemia Current Visit: Yes Status: Acute Code(s): D64.9 - ANEMIA, UNSPECIFIED SNOMED Code(s): 950086440 Comment: - Drop in HgB to 6.1 on 11/23, s/p 1 unit PRBCs with adequate response - Continue to monitor CBC daily H&H stable today - initially with elevated bilirubin, now resolved; possible hemolysis previously but more likely to be GIB given positive hemoccult - plan for EGD and colonoscopy tomorrow; bowel prep starting this evening (2) Bacteremia Current Visit: Yes Status: Acute Code(s): R78.81 - BACTEREMIA SNOMED Code( s): 7165656 Comment: - E. coli bactermia, source is UTI - Dr. Arias switched to po keflex today, to continue for total of 14 d treatment - surveillance blood cultures negative - afebrile - leukocytosis continues to downtrend (3) Sepsis Current Visit: Yes Status: Acute Comment: -2/2 E. coli UTI -evidence of sepsis resolved -see bactermia above, now treatment with keflex (4) MICHEAL (acute kidney injury) Current Visit: Yes Status: Acute Code(s): N17.9 - ACUTE KIDNEY FAILURE, UNSPECIFIED SNOMED Code(s): 88974813 Comment: - Multifactoral, combined dehydration, NSAID use, lisinopril and lasix use and complicated by UTI - Nephrology consult appreciated, will need outpatient follow up - CT abd/pelvis with no acute findings - Continued to improve, d/c IVF today - Avoid nephrotoxic medications, zosyn discontinued - passing urine since lambert d/c'd (5) Abdominal pain Current Visit: Yes Status: Acute Code(s): R10.9 - UNSPECIFIED ABDOMINAL PAIN SNOMED Code(s): 27494090 Comment: - Heme positive stool and low H&H with hx of GERD and NSAID use, constellation of findings consistent with UGIB - Changed to IV protonix - MRCP negative, will still likely need EGD and colonoscopy before discharge - Diet advanced, will be clear liquids once bowel prep for c-scop starts - abd pain resolved today (6) HTN (hypertension) Current Visit: No Status: Acute Code(s): I10 - ESSENTIAL (PRIMARY) HYPERTENSION SNOMED Code(s): 33629671 Comment: - IV hydralazine PRN - Continue amlodipine. (7) DM type 2 (diabetes mellitus, type 2) Current Visit: No Status: Acute Comment: - Accuchecks ACHS (8) DVT prophylaxis Current Visit: No Status: Acute Code(s): ODY3780 - SNOMED Code(s): 010340025 Comment: - SCDs only in presence of anemia and possible GIB (9) Full code status Current Visit: Yes Status: Acute Code(s): Z78.9 - OTHER SPECIFIED HEALTH STATUS SNOMED Code(s): 597833323 Status and Disposition: pending EGD and c-scope
[2018-11-27] MEDS ORDERED: PEG 3000 GI LAVAGE* 1 GALLON PO ONE (16:00)
[2018-11-28 06:10] LABS: ABS Basophils 0.1 10^3/ul (0-0.2); ABS Eosinophils 0.1 10^3/ul (0-0.6); ABS Lymphocytes 1.2 10^3/ul (1.0-4.8); Eosinophil % 0.5 %; Hematocrit 22 % (35-47); Hemoglobin 7.3 g/dL (12.0-16.0); Lymphocyte % 9.3 %; Mean Corpuscular HGB Conc 34 g/dL (31-36); Mean Corpuscular Hemoglobin 28 pg (27-31); Mean Corpuscular Volume 84 fL (80-97); Mean Platelet Volume 7.9 fL (7.4-10.4); Nucleated Red Blood Cells % 0.1; Platelet Count 296 10^3/uL (150-450); Red Blood Count 2.58 10^6 /uL (3.70-4.87); Red Cell Distribution Width 17 % (10-15); White Blood Count 13.4 10^3/uL (3.5-10.8)
[2018-11-28 06:35] LABS: BUN/Creatinine Ratio 11.5 (8-20); Calcium 8.4 mg/dL (8.6-10.3); EGFR African American 38.8 (>60); Potassium 3.4 mmol/L (3.5-5.0)
[2018-11-28] MEDS: amLODIPine TAB* 5 MG PO SCH (08:13)
[2018-11-28] MEDS: Cephalexin CAP* 250 MG PO SCH ×2 (08:13→21:54)
[2018-11-28] MEDS: Pantoprazole IV* 40 MG IV SCH (08:14)
[2018-11-28] MEDS: Insulin LISPRO* 1 UNITS UNIT SUBCUT SCH ×4 (08:14→21:54)
[2018-11-28] MEDS ORDERED: Midazolam* 1 MG/ML 10 ML VIAL (10 MG) ONE (12:28)
[2018-11-28] MEDS ORDERED: fentaNYL* 50 MCG/ML 2 ML VIAL (100 MCG VIAL) ONE (12:28)
--- NOTE | 2018-11-28 14:06 | PN ---
Progress Note - Progress Note Date of Service: 11/28/18 Note: GI Brief Note: EGD: E: Nml G: prominant nodularity antrum ?resolving ulcer. bx D: nml Colon to TI Diverticulosis on L Internal hemorrhoids, prominant vasculature. Rec: Ok to be d/c from GI POV Monitor Hgb via PMD if stable would hold further workup ? If antral site is resolving ulcer, Keep on PPI daily for 3 months total Follow up with GI if anemia not improving to consider capsule. Brando Cardona DO 11/28/18 1400
--- NOTE | 2018-11-28 18:11 | PN ---
Subjective Date of Service: 11/28/18 Interval History: Patient seen and examined, having trouble getting through bowel prep, states she keeps having "accidents". Pending EGD and colonscopy today. No further fevers or weakness last 24 hours. Family History: Unchanged from Admission Social History: Unchanged from Admission Past Medical History: Unchanged from Admission Objective Active Medications: Acetaminophen (Tylenol Tab*) 650 mg PO Q6H PRN PRN Reason: Mild pain/fever>100.4 Last Admin: 11/26/18 23:40 Dose: 650 mg Amlodipine Besylate (Norvasc Tab*) 5 mg PO DAILY [facility] Last Admin: 11/28/18 08:13 Dose: 5 mg Cephalexin HCl (Keflex Cap*) 250 mg PO BID [facility] Last Admin: 11/28/18 08:13 Dose: 250 mg Dextrose (Dextrose 50% Vial 50 Ml*) 25 ml IV PUSH .FOR FS < 60 - SS PRN PRN Reason: FS < 60 Hydralazine HCl (Apresoline Iv*) 5 mg IV SLOW PU Q6H PRN PRN Reason: SBP >170 DBP >90 Last Admin: 11/24/18 21:21 Dose: 5 mg Insulin Human Lispro (Humalog*) 0 units SUBCUT [facility]; Protocol Last Admin: 11/28/18 17:28 Dose: Not Given Lidocaine (Xylocaine 2% Viscous*) 15 ml SWISH SPIT TID PRN PRN Reason: oral pain Pantoprazole Sodium (Protonix Iv*) 40 mg IV DAILY [facility] Last Admin: 11/28/18 08:14 Dose: 40 mg Prochlorperazine Edisylate (Compazine Inj*) 5 mg IV Q8H PRN PRN Reason: NAUSEA/VOMITING Last Admin: 11/27/18 03:45 Dose: 5 mg Vital Signs - 8 hr 11/28/18 11/28/18 11:06 16:07 Temperature 97.5 F 97.4 F Pulse Rate 97 90 Respiratory 16 16 Rate Blood Pressure 150/75 160/77 (mmHg) O2 Sat by Pulse 100 96 Oximetry Oxygen Devices in Use Now: None Appearance: alert, NAD Eyes: No Scleral Icterus, PERRLA Ears/Nose/Mouth/Throat: Mucous Membranes Moist Neck: NL Appearance and Movements; NL JVP, Trachea Midline Respiratory: Symmetrical Chest Expansion and Respiratory Effort, Clear to Auscultation Cardiovascular: NL Sounds; No Murmurs; No JVD, RRR, No Edema Abdominal: NL Sounds; No Tenderness; No Distention Extremities: No Edema Skin: No Rash or Ulcers Neurological: Alert and Oriented x 3 Nutrition: - - NPO Result Diagrams: 11/28/18 05:35 11/28/18 05:35 Additional Lab and Data: Lab Results 11/18/18 11/18/18 11/18/18 Range/Units 15:15 15:28 15:28 WBC 22.2 H (3.5-10.8) 10^3/uL RBC 3.07 L (3.70-4.87) 10^6 /uL Hgb 9.0 L (12.0-16.0) g/dL Hct 26 L (35-47) % MCV 84 (80-97) fL MCH 29 (27-31) pg MCHC 35 (31-36) g/dL RDW 17 H (10-15) % Plt Count 140 L (150-450) 10^3/uL MPV 8.1 (7.4-10.4) fL Neut % (Auto) Pending Lymph % (Auto) Pending [place]ill % (Auto) Pending Eos % (Auto) Pending Baso % (Auto) Pending Absolute Neuts (auto) Pending Absolute Lymphs (auto) Pending Absolute Monos (auto) Pending Absolute Eos (auto) Pending Absolute Basos (auto) Pending Absolute Nucleated RBC Pending Nucleated RBC % Pending Sodium 124 L (135-145) mmol/L Potassium 4.6 (3.5-5.0) mmol/L Chloride 91 L (101-111) mmol/L Carbon Dioxide 15 L (22-32) mmol/L Anion Gap 18 H (2-11) mmol/L BUN 89 H (6-24) mg/dL Creatinine 7.76 H (0.51-0.95) mg/dL Est GFR ( Amer) 6.1 (>60) Est GFR (Non-Af Amer) 5.1 (>60) BUN/Creatinine Ratio 11.5 (8-20) Glucose 63 L (70-100) mg/dL POC Glucose (mg/dL) 62 L (70-100) mg/dL Calcium 8.1 L (8.6-10.3) mg/dL Total Bilirubin 2.70 H (0.2-1.0) mg/dL AST 27 (13-39) U/L ALT 28 (7-52) U/L Alkaline Phosphatase 541 H (34-104) U/L Troponin I 0.06 H* (<0.04) ng/mL C-Reactive Protein 317.64 H (<8.01) mg/L B-Natriuretic Peptide (<=100) pg/mL Total Protein 5.8 L (6.4-8.9) g/dL Albumin 2.9 L (3.2-5.2) g/dL Globulin 2.9 (2-4) g/dL Albumin/Globulin Ratio 1.0 (1-3) 11/18/18 Range/Units 15:28 WBC (3.5-10.8) 10^3/uL RBC (3.70-4.87) 10^6 /uL Hgb (12.0-16.0) g/dL Hct (35-47) % MCV (80-97) fL MCH (27-31) pg MCHC (31-36) g/dL RDW (10-15) % Plt Count (150-450) 10^3/uL MPV (7.4-10.4) fL Neut % (Auto) Lymph % (Auto) [place]ill % (Auto) Eos % (Auto) Baso % (Auto) Absolute Neuts (auto) Absolute Lymphs (auto) Absolute Monos (auto) Absolute Eos (auto) Absolute Basos (auto) Absolute Nucleated RBC Nucleated RBC % Sodium (135-145) mmol/L Potassium (3.5-5.0) mmol/L Chloride (101-111) mmol/L Carbon Dioxide (22-32) mmol/L Anion Gap (2-11) mmol/L BUN (6-24) mg/dL Creatinine (0.51-0.95) mg/dL Est GFR ( Amer) (>60) Est GFR (Non-Af Amer) (>60) BUN/Creatinine Ratio (8-20) Glucose (70-100) mg/dL POC Glucose (mg/dL) (70-100) mg/dL Calcium (8.6-10.3) mg/dL Total Bilirubin (0.2-1.0) mg/dL AST (13-39) U/L ALT (7-52) U/L Alkaline Phosphatase (34-104) U/L Troponin I (<0.04) ng/mL C-Reactive Protein (<8.01) mg/L B-Natriuretic Peptide 656 H (<=100) pg/mL Total Protein (6.4-8.9) g/dL Albumin (3.2-5.2) g/dL Globulin (2-4) g/dL Albumin/Globulin Ratio (1-3) Microbiology and Other Data: Microbiology 11/18/18 17:30 Urine Culture - Preliminary Urine Escherichia Coli Diagnostic Imaging: Patient Name: LAUREL VENTURA Medical Record#: [id number] Ordering Physician: Brando Cardona DO Acct.#: [id number] : 1940 Age: 78 Sex: F Location: [address] [place] [address]/TELEMETRY Exam Date: 11/21/181801 ADM Status: ADM IN Order Information: MRI CHOLANGIOGRAM (MRCP) Accession Number: [id number] CPT: 19845 EXAM: MR Abdomen Without Contrast, MRCP. EXAM DATE/TIME: 11/21/2018 9:08 PM CLINICAL HISTORY: 78 years old, female; Abnormal findings; Abnormal lab test; Other: Elevated alkaline phosphatase; Patient HX: PT C/O of malaise, nausea, dry heaving, and confusion; Additional info: Elevated alkaline phosphatase, ecoli bacteremia. PT motion from breathing- repeats done and best images sent. PT rn states PT has been npo all day TECHNIQUE: Imaging protocol: MR of the abdomen without contrast. COMPARISON: A/P WO CT ABD/PEL W/O 11/19/2018 7:04 PM FINDINGS: Lungs: Compressive atelectasis posterior lower lobes. Pleura: Small bilateral pleural effusions. Liver: Normal liver parenchymal signal intensity with no focal lesions. Normal portal and hepatic vein flow voids. Gallbladder and bile ducts: No wall thickening, pericholecystic fluid, or gallstones. No intra-or extrahepatic biliary dilation. Pancreas: Normal pancreatic parenchymal signal intensity with no main ductal dilation, focal lesions, or distal parenchymal atrophy. Spleen: Normal splenic signal intensity. No splenomegaly. Kidneys and ureters: Normal signal intensity with no pelvocaliectasis or solid cortical masses. Stomach and bowel: Stomach is grossly normal. Visualized small bowel is normal in caliber. No masses or segmental wall thickening throughout the visualized colon. Retroperitoneal space: Mesenteric and retroperitoneal edema as seen previously. Intraperitoneal space: No fluid collection. Veins: Normal aortic and IVC flow voids. Bones/joints: The spine demonstrates mild degenerative changes at multiple levels. Normal marrow signal intensity. Soft tissues: Subcutaneous edema throughout the visualized abdomen. IMPRESSION: 1. No MRI findings to correlate with patient's symptomatology. Specifically no choledocholithiasis. 2. Findings of third spacing. *[facility]* [place] [address] Fax #: [phone] Transthoracic Echocardiogram Patient: Laurel Ventura : 1940 Study Date: 11/21/2018 Age: 78 Gender: F HR: 83 bpm Height: 66 in /167.6 cm BSA: 1.75 m^2 Weight: 143.7 lb /65.3 kg BMI: 23.2 kg/m^2 *[employer]rown Iron[employer] Operator: Krystal Aggarwal [facility] RN *Referring Physician: * Matilde Bustos *Reading Physician: * Saji Klein MD Indications: Tachycardia, ventricular paroxysmal. History: Risk factors: Hypertension. Diabetes mellitus. Dyslipidemia. Conclusions Summary: - Left ventricle: Systolic function is normal. The estimated ejection fraction is 55-60%. Doppler parameters are consistent with abnormal left ventricular relaxation (grade 1 diastolic dysfunction). - Mitral valve: There is mild regurgitation. - Aortic valve: There is trace to mild regurgitation. - Tricuspid valve: There is mild regurgitation. - Pulmonic valve: There is mild to moderate regurgitation. - Pulmonary arteries: Systolic pressure is at the upper limits of normal, estimated to be 35 mm Hg, in the range of 35 mm Hg to 40 mm Hg. Assess/Plan/Problems-Billing Assessment: Mrs. Ventura is a 78-year-old lady with a past medical history of type 2 diabetes, hyperlipidemia, hypertension, GERD, osteoarthritis, who presented to the emergency room with complaints of malaise, nausea, dry heaving, and confusion. Found to have acute renal failure and leukocytosis and electrolyte abnormalities with gram negative bacteremia and UTI. - Patient Problems (1) E. coli UTI Code(s): N39.0 - URINARY TRACT INFECTION, SITE NOT SPECIFIED; B96.20 - UNSP ESCHERICHIA COLI THE CAUSE OF DISEASES CLASSD [facility] SNOMED Code(s): 884417143 Comment: - Urine culture positive for e-coli, treated and resolved, lambert removed (2) MICHEAL (acute kidney injury) Code(s): N17.9 - ACUTE KIDNEY FAILURE, UNSPECIFIED SNOMED Code(s): 52738600 Comment: - Multifactoral, combined dehydration, NSAID use, lisinopril and lasix use and complicated by UTI - Nephrology consult appreciated, will need outpatient follow up - CT abd/pelvis with no acute findings - Continued to improve, d/c IVF today - Avoid nephrotoxic medications, zosyn discontinued - passing urine since lambert d/c'd (3) V-tach Code(s): I47.2 - VENTRICULAR TACHYCARDIA SNOMED Code(s): 74157763 Comment: - Low magnesium on labs and persistent metabolic derangement, 1 episode only - Had 2gm mag with no further ectopy - ECHO as above, no wall motion abnormalities - Discussed with GI, episode was self limited and occured during sleep, while patient clearly has a gram negative bacteremia, will likely be able to proceed with EGD, colonoscopy without issue or needing further cardiac workup (4) Abdominal pain Code(s): R10.9 - UNSPECIFIED ABDOMINAL PAIN SNOMED Code(s): 35525622 Comment: - Heme positive stool and low H&H with hx of GERD and NSAID use, constellation of findings consistent with UGIB - Changed to IV protonix - MRCP negative, will still likely need EGD and colonoscopy before discharge - Pending EGD/colonoscopy today (5) Anemia Code(s): D64.9 - ANEMIA, UNSPECIFIED SNOMED Code(s): 642722844 Comment: - Drop in HgB to 6.1 on 11/23, s/p 1 unit PRBCs with adequate response - Continue to monitor CBC daily H&H stable today - initially with elevated bilirubin, now resolved; possible hemolysis previously but more likely to be GIB given positive hemoccult - plan for EGD and colonoscopy today, appreciate GI recs (6) Confusion Code(s): R41.0 - DISORIENTATION, UNSPECIFIED SNOMED Code(s): 943166660 Comment: - Toxic metabolic encephalopathy likely related to MICHEAL, UTI, bacteremia and UGIB - Mentation improved, but will continue to monitor closely (7) GERD (gastroesophageal reflux disease) Code(s): K21.9 - GASTRO-ESOPHAGEAL REFLUX DISEASE WITHOUT ESOPHAGITIS SNOMED Code(s): 377936113 Comment: - Concerned given NSAID use, and low H&H and heme pos stool - Changed to IV protonix (8) HTN (hypertension) Code(s): I10 - ESSENTIAL (PRIMARY) HYPERTENSION SNOMED Code(s): 41872605 Comment: - IV hydralazine PRN - Continue amlodipine. (9) DM type 2 (diabetes mellitus, type 2) Comment: - Accuchecks ACHS (10) Bacteremia Code(s): R78.81 - BACTEREMIA SNOMED Code(s): 4784907 Comment: - E. coli bactermia, source is UTI - Dr. Arias switched to po keflex on 11/27, to continue for total of 14 day treatment - leukocytosis continues to downtrend, remains afebrile (11) DVT prophylaxis Code(s): UNZ4443 - SNOMED Code(s): 372446119 Comment: - SCDs only in presence of anemia and possible GIB (12) Full code status Code(s): Z78.9 - OTHER SPECIFIED HEALTH STATUS SNOMED Code(s): 666023468 Status and Disposition: pending EGD and c-scope today
--- NOTE | 2018-11-28 21:27 | PRO ---
CC: Jaylen Talavera MD * ESOPHAGOGASTRODUODENOSCOPY AND COLONOSCOPY REPORT: DATE OF PROCEDURE: 11/18/18 PRIMARY CARE PHYSICIAN: Jaylen Talavera MD INDICATION FOR ANEMIA: Anemia. PROCEDURE PERFORMED: Complete esophagogastroduodenoscopy with biopsies and complete colonoscopy to the terminal ileum. MEDICATIONS GIVEN: Include: 7 mg IV midazolam, 50 mcg IV fentanyl. DESCRIPTION OF PROCEDURE: After the EGD and colonoscopy procedure including the risks, benefits, and alternatives, with the risks not limited to perforation , surgery, missed lesions, and/or were explained to the patient, written informed consent was obtained, IV medication was given, and a bite block was placed between the teeth. The adult Olympus gastroscope was then inserted into the patient's oropharynx, into the tubular esophagus. The tubular esophagus was grossly normal in appearance. The scope was advanced through the lower esophageal sphincter into the stomach. There was some prominent nodularity within the antrum, the biopsies were taken, and had the appearance of a recent gastric ulceration that may have healed. On retroflexion, a 2-cm hiatal hernia was appreciated. The scope was then advanced through the widely patent pylorus into the duodenal bulb, C-loop, and distal duodenum. These were normal in appearance. The scope was then removed from the patient. She tolerated the procedure well. She was then rotated, given additional IV sedation medication. Her rectal exam was then performed. The rectal exam revealed palpable internal hemorrhoids. The adult Olympus colonoscope was then inserted into the patient's rectum and advanced very carefully through the entirety of the colon and into the cecal base. The cecal base was carefully inspected and normal in appearance. The terminal ileal valve was identified and intubated x4 to 5 cm and normal. The scope was then returned to the cecum. The preparation was good. A photograph was taken of the cecal cap. Over the next 6 minutes, the scope was carefully withdrawn inspecting the mucosa. There was mild left-sided diverticulosis coli. On return to the rectum, direct views showed prominent vasculature and on retroflexion, grade 1 internal hemorrhoids were appreciated. The scope was then removed from the patient. She tolerated the procedure well. She returned to the recovery room in stable condition. IMPRESSION: 1. Complete esophagogastroduodenoscopy with biopsies. 2. Prominent nodularity within the gastric antrum, question recent ulcer, biopsied. 3. Few centimeter hiatal hernia. 4. Complete colonoscopy to the terminal ileum. 5. Good prep. 6. Left-sided diverticulosis coli. 7. Internal hemorrhoids. RECOMMENDATIONS: Suspect that she may have had an ulcer within the antrum that is now healed with PPI therapy. Recommend 3 months of proton pump inhibitor therapy. Would monitor her hemoglobin. If she has evidence of ongoing iron deficiency anemia in the future, would consider capsule at that time. Would have the primary care team monitor this and refer back if evidence of ongoing iron deficiency. [id number]/[facility] #: [id number] XAVI
[2018-11-29] MEDS: Insulin LISPRO* 1 UNITS UNIT SUBCUT SCH ×2 (07:59→13:00)
[2018-11-29] MEDS ORDERED: Pantoprazole TAB * 40 MG TAB PO SCH (09:00)
[2018-11-29] MEDS: amLODIPine TAB* 5 MG PO SCH (09:18)
[2018-11-29] MEDS: Cephalexin CAP* 250 MG PO SCH (09:18)
[2018-11-29] MEDS ORDERED: Iron Sucrose* 200 MG in NS 0.9% 100 ML* 100 ML IVPB ONE (09:30)
[2018-11-29 12:54] VITALS: BP 140/63
--- NOTE | 2018-11-29 22:58 | DS ---
CC: Nell Marie NP; Dr. Romie Mackey; Dr. Brando Cardona; Dr. Rashid Arias * DISCHARGE SUMMARY: DATE OF ADMISSION: 11/18/18 DATE OF DISCHARGE: 11/29/18 PRIMARY CARE PROVIDER: Nell Marie NP MY ATTENDING FOR THIS DISCHARGE: Dr. Paola Han.* (DICTATED BY MARY JANE RIVERA NP) HOSPITAL COURSE: Please refer to admitting H and P on 11/18/18, but in short, Ms. Beck is a 78-year-old female patient, who presented to the emergency department after seeing her primary care provider prior to her admission for complaints of generalized back and neck pain. She was prescribed NSAIDs for her pain and then started to feel weak. She had nausea, episodes of dry heaves , and was confused. Her granddaughter had made an appointment for followup for her and the patient could not recount what had happened after that. The patient did come to the emergency department for evaluation for her confusion. Again, she had persistent nausea and vomiting, weakness, and encephalopathic changes. In the emergency department, she was noted to have an acute kidney injury and a creatinine of 4. She was severely dehydrated and was noted to be in metabolic acidosis. She was rehydrated with IV normal saline, placed on sodium bicarbonate as a buffering agent, and she was consulted with Nephrology, Dr. Romie Mackey. A renal ultrasound was performed. Her NSAIDs were withheld as were any other nephrotoxic agents. She received supportive medications for her nausea and vomiting. She also received pain medication for her abdominal pain. She was also noted to have elevated LFTs and some mild bilirubinemia. After her admission, she did have a precipitous drop in her hemoglobin. She received packed red blood cells for a symptomatic hemoglobin of 6.1. Her anemia was initially attributed to her renal dysfunction; however, she was also noted to have a positive Hemoccult. Given her NSAID use, abdominal pain, and positive Hemoccult, we did consult Gastroenterology, who also followed her case. She was started on IV Protonix as well for possibility of upper GI bleeding secondary to NSAID use. During this time, she still had intermittent confusion and some metabolic encephalopathy, which was waxing and waning. She was also having issues with urination secondary to her kidney dysfunction. She had some acute retention and because of a hemodynamic monitoring, a [place] catheter was inserted. Urine culture did reveal E. coli in her urine as well as in her blood cultures. Initially, gram-negative bacteremia was diagnosed. Ultimately, blood cultures did also show E. coli. Initially, she was placed on IV ceftriaxone to cover her for her E. coli; however, she began to become more toxic and confused, spiking temperatures, and having persistently elevated white cell count. When she was flagged for sepsis again, after her admission, she was switched to Zosyn, recultured, pancultured again, at that time then she was seen by Infectious Disease. There was also concern because of very persistent abdominal pain not only for GI bleed, but there was perhaps a biliary source. I had the discussion with Dr. Cardona about this. She did undergo MRCP to rule out biliary source. MRCP was negative even though she still had persistently high white counts. The patient was continued on IV fluids and IV antibiotics. She remained persistently encephalopathic with fevers and a high white count for several days. Ultimately, she did have a downward trend in her creatinine and also stabilization in her hemodynamics. Her max creatinine on 11/18/18 was 7.76 and ultimately trended down to 1.57 by discharge. Her white cell count also at admission started of at 22 and trended down to 13.4 also at discharge. The rest of her diagnostic studies, again MRCP was negative. Echocardiogram of her heart showed no acute pathology, she did not have any diastolic or systolic dysfunction, ejection fraction was adequate, left ventricular function was also adequate, EF was noted to be 55% to 60%. CT of her abdomen and pelvis was noted to have no acute changes. She had some trace bilateral pleural effusions only. So, ultimately, as her sepsis began to resolve and her renal function began to recover, she did begin to respond to appropriate antibiotic therapy for her E. coli bacteremia and her other issues. Because of her metabolic derangements, she did have one brief episode of 7 beats of ventricular tachycardia. Her magnesium was low at the time, which was repleted. Ultimately , she did have endoscopy and colonoscopy with Dr. Brando Cardona for the initial presentation of anemia and GI bleeding. Please refer to the operative note for these procedures; however, it did appear that there was some prominent nodularity in the gastric antrum, which could be a questionable recent ulcer. This area was biopsied. It is important to note that the patient was on IV Protonix for the duration of her admission. So, essentially, she was treated for GI bleeding. Her hemoglobin did remain stable on the low side, but stable and asymptomatic after she had been transfused. She did receive IV iron and then was placed on oral iron supplementation as well. On 11/29/18, the day after her EGD and colonoscopy, the patient was ambulating and back to her baseline. Physical Therapy and Occupational Therapy did not reveal any rehabable needs. The patient's mental status changes had completely resolved. The patient was completely back at her baseline. I had a conversation with her son several times over the course of her hospitalization, but on the day of discharge, the patient was ready to be discharged to home. I had a conversation with her son, Thad, who is her healthcare proxy and he was in agreement with the patient being discharged to home and he would make arrangements for picking her up and transporting her back. Overall, the patient did have a very complicated course. This is a summary of her findings. Please refer to the complete medical record for any additional information regarding this patient's stay. DISCHARGE DIAGNOSES: 1. Acute kidney injury and failure secondary to dehydration, NSAID use, and urinary tract infection. 2. Escherichia coli bacteremia, now resolved. 3. Metabolic encephalopathy, resolved. 4. Abdominal pain likely secondary to upper gastrointestinal bleeding. 5. Anemia secondary to upper gastrointestinal bleeding. 6. Gastroesophageal reflux disease. 7. Hyponatremia, resolved. 8. Leukocytosis secondary to bacteremia and urinary tract infection. 9. Hypertension. 10. Diabetes mellitus, type 2, stable. MEDICATIONS FOR DISCHARGE: Include new medications: 1. Keflex 250 mg p.o. b.i.d. for 10 more days. 2. Ferrous sulfate 325 mg p.o. daily. 3. Protonix 40 mg p.o. daily. 4. Amlodipine 5 mg p.o. daily. These are new. The patient's home medications to be continued: 1. Zyrtec 10 mg p.o. daily. 2. Flexeril 10 mg p.o. 3 times a day as needed. 3. Voltaren gel topical 4 times a day as needed. 4. Gabapentin 300 mg p.o. 3 times a day. 5. [place] 1 tablet p.o. q.6 hours as needed for pain. 6. Multivitamin 1 tab p.o. daily. 7. Pravastatin 80 mg p.o. daily. Change in medication: Lasix 10 mg p.o. daily was held. This should be reevaluated with her primary care provider. This should be restarted and can also be evaluated with Dr. Mackey again if this should be restarted as an outpatient. REVIEW OF SYSTEMS: At the day of discharge, the patient denies any fever, fatigue, or chills. No chest pain, no shortness of breath, no abdominal pain, no nausea, no vomiting, no urinary complaints, no bowel complaints, no arthralgias or myalgias, and no further constitutional complaints. PHYSICAL EXAMINATION: The patient is awake, alert, in no acute distress. Vital signs are blood pressure 140/63, heart rate 87, respiratory rate 16, O2 saturation 100% on room air with a temperature of 98.0. HEENT: The patient is atraumatic, normocephalic. PERRLA, nonicteric sclerae. Oral mucosa is moist. Tongue is midline. Neck is supple, nontender. No JVD noted. No carotid bruits auscultated. Cardiovascular: S1, S2 present. Rate and rhythm are regular. No murmurs, gallops, or rubs noted. Abdomen is soft, nontender, nondistended. Positive bowel sounds in all 4 quadrants. is deferred. Musculoskeletal: There is no clubbing, no cyanosis, and no edema. She has +2 distal pulses palpable. Full range of motion. Steady gait with contact guard assist. Neurologic: Grossly intact. No focal deficits. Psychiatric: Cooperative and appropriate. DIAGNOSTIC STUDIES/LAB DATA: WBC 13.4, RBC 2.58, hemoglobin 7.3, hematocrit 22 , platelets 296. Sodium 138, potassium 3.5, chloride 101, BUN 18, creatinine 1.57, GFR is 32, glucose 135, calcium 8.4. Bilirubin 1.0, AST 20, ALT 16, alk phos 329. Total protein 4.9, albumin 2.4, globulin 2.5, albumin/globulin ratio 1.0. Iron studies: Iron was 39, TIBC was 199, percent saturation 20, unsaturated iron binding less than 184, transferrin 142, ferritin 381.1, total bilirubin 2.10. Imaging: MRCP dated 11/21/18 shows no MRI findings to correlate with choledocholithiasis. Chest x-ray dated 11/19/18 shows small left base pleural effusion. Transthoracic echocardiogram dated 11/21/18 shows ejection fraction of 55% to 60 %, systolic function is normal, mild mitral regurg, trace mild aortic regurg, mild tricuspid regurg, [id number] pulmonic regurg, pulmonary artery systolic pressures at the upper limits of normal, estimated to be [address] pelvis [address] as noted in the body of this document above. DISPOSITION: The patient was discharged to home in stable condition in the care of her family. All questions were answered. The patient and family state that they are understanding of the discharge instructions and followups. FOLLOWUP: The patient was instructed to follow up with Dr. Romie Mackey to follow up her renal function. We suggest having followup BMP and CBC, and also with Dr. Jaylen Talavera, her primary care provider in 4 to 7 days, again to follow up lab work, CBC, and BMP. DIET: Diabetic diet as tolerated. TIME SPENT: Sixty minutes on discharge planning and documentation. MARY JANE RIVERA, COLLIN [id number]/[facility] #: [id number] XAVI
[2018-11-30] MEDS ORDERED: Ferrous Sulfate TAB* 325 MG PO SCH (09:00)
== END 2018-11-29 13:21 | disposition home or self-care (01) | DRG 871 ==
LOC: ED 15:04 → MEDTELE 19:18
PROVIDERS: ADMIT Internal Medicine; ATTEND Internal Medicine
PROC: 30233N1 Transfusion of Nonautologous Red Blood Cells into Peripheral Vein, Percutaneous Approach (ICD-10-PCS; principal; 2018-11-23)
PROC: 0T9B70Z Drainage of Bladder with Drainage Device, Via Natural or Artificial Opening (ICD-10-PCS; 2018-11-23)
PROC: 0DB78ZX Excision of Stomach, Pylorus, Via Natural or Artificial Opening Endoscopic, Diagnostic (ICD-10-PCS; 2018-11-28)
PROC: 0DJD8ZZ Inspection of Lower Intestinal Tract, Via Natural or Artificial Opening Endoscopic (ICD-10-PCS; 2018-11-28)
DX: A41.51 Sepsis due to Escherichia coli [E. coli] (principal); G92 Toxic encephalopathy; N17.9 Acute kidney failure, unspecified; I47.2 Ventricular tachycardia; J90 Pleural effusion, not elsewhere classified; K92.2 Gastrointestinal hemorrhage, unspecified; E87.1 Hypo-osmolality and hyponatremia; E87.2 Acidosis; E83.42 Hypomagnesemia; K64.8 Other hemorrhoids; N30.90 Cystitis, unspecified without hematuria; E86.0 Dehydration; E78.00 Pure hypercholesterolemia, unspecified; M06.9 Rheumatoid arthritis, unspecified; F41.9 Anxiety disorder, unspecified; F40.240 Claustrophobia; R33.9 Retention of urine, unspecified; K57.30 Diverticulosis of large intestine without perforation or abscess without bleeding; K44.9 Diaphragmatic hernia without obstruction or gangrene; E11.9 Type 2 diabetes mellitus without complications; I10 Essential (primary) hypertension; K21.9 Gastro-esophageal reflux disease without esophagitis; M19.90 Unspecified osteoarthritis, unspecified site; D72.829 Elevated white blood cell count, unspecified; D64.9 Anemia, unspecified; E78.5 Hyperlipidemia, unspecified; Z88.1 Allergy status to other antibiotic agents; Z82.49 Family history of ischemic heart disease and other diseases of the circulatory system; Z90.710 Acquired absence of both cervix and uterus; Z87.440 Personal history of urinary (tract) infections; Z86.19 Personal history of other infectious and parasitic diseases
CPT/HCPCS: 36415; 71046; 74176; 74181; 76376; 76700; 80048; 80053; 81003; 81015; 82272; 82607; 82728; 82746; 82977; 83540; 83550; 83735; 83880; 84100; 84484; 85014; 85018; 85025; 85027; 85045; 85610; 86140; 86850; 86900; 86901; 86922; 87040; 87070; 87077; 87086; 87186; 87205; 88305; 88342; 93005; 93306; 99156; 99157; 99285; A9270-GY; G8978-GP-CI; G8979-GP-CI; G8980-GP-CI; J0360; J0696; J0780; J1644; J1756; J2250; J2270; J2543; J3010; J3475; P9040

== ENCOUNTER 2019-03-11 18:20 | Emergency (ER) | payer MEDICARE, OTHER ==
[2019-03-11] MEDS ORDERED: Ondansetron INJ* 2 MG/ML VIAL IV ONE (19:20)
[2019-03-11] MEDS ORDERED: NS 0.9% 1000 ML** 1,000 ML IV ONE (19:20)
[2019-03-11 19:37] LABS: ABS Lymphocytes 0.5 10^3/ul (1.0-4.8); ABS Monocytes 0.7 10^3/ul (0-0.8); Hematocrit 32 % (35-47); Hemoglobin 10.8 g/dL (12.0-16.0); Lymphocyte % 3.2 %; Mean Corpuscular HGB Conc 33 g/dL (31-36); Mean Corpuscular Hemoglobin 31 pg (27-31); Mean Corpuscular Volume 93 fL (80-97); Mean Platelet Volume 7.8 fL (7.4-10.4); Platelet Count 235 10^3/uL (150-450); Red Blood Count 3.47 10^6 /uL (3.70-4.87); Red Cell Distribution Width 14 % (10-15); White Blood Count 16.3 10^3/uL (3.5-10.8)
[2019-03-11 19:43] LABS: INR 0.99 (0.82-1.09)
[2019-03-11 19:55] LABS: Albumin 4.2 g/dL (3.2-5.2); Albumin/Globulin Ratio 1.4 (1-3); BUN/Creatinine Ratio 17.8 (8-20); Calcium 9.7 mg/dL (8.6-10.3); EGFR African American 40.2 (>60); EGFR Non-African American 33.2 (>60); Globulin 2.9 g/dL (2-4); Potassium 4.4 mmol/L (3.5-5.0); Total Bilirubin 0.5 mg/dL (0.2-1.0); Total Protein 7.1 g/dL (6.4-8.9)
[2019-03-11] MEDS ORDERED: Morphine 4 MG/ML VIAL (1 ml) 4 MG/ML VIAL IV ONE (21:53)
--- NOTE | 2019-03-11 21:54 | ED ---
Back Pain - HPI Summary HPI Summary: Patient complains of right flank pain for a couple days. Pain described as initially intermittent, constant now, rated at worst 9/10. Patient has persistent nausea, vomiting only when drinking water. Also states she has decreased urine flow. Denies fever, cough, sore throat, CP, SOB, abdominal pain , change in BM, vaginal symptoms. Medical history is DM, arthritis, chronic back pain. Family states patient had history of recent admission to [facility] for 2 weeks in December for kidney failure and sepsis. No record on file. - History of Current Complaint Chief Complaint: EDFlankPain Stated Complaint: ABDOMINAL PAIN PER PT Time Seen by Provider: 03/11/19 21:44 Hx Obtained From: Patient Onset/Duration: Gradual Onset, Lasting Days Onset/Duration: Started Days Ago Timing: Constant Back Pain Location: Is Discrete @ Severity Initially: Severe Severity Currently: Severe Pain Intensity: 9 Pain Scale Used: 0-10 Numeric Character: Sharp Associated Signs And Symptoms: Positive: Flank Pain - Allergies/Home Medications Allergies/Adverse Reactions: Allergies Allergy/AdvReac Type Severity Reaction Status Date / Time naproxen Allergy Vomiting Verified 03/11/19 18:44 amoxicillin [From Augmentin] AdvReac Vomiting Verified 03/12/19 01:11 clavulanic acid AdvReac Vomiting Verified 03/12/19 01:11 [From Augmentin] Home Medications: Home Medications Lisinopril 03/11/19 [History] Omeprazole 03/11/19 [History] amLODIPine TAB* 03/11/19 [History] metFORMIN* 03/11/19 [History] PMH/Surg Hx/FS Hx/Imm Hx Endocrine/Hematology History: Denies: Hx Anticoagulant Therapy Cardiovascular History: Denies: Hx Pacemaker/ICD History: Denies: Hx Dialysis Sensory History: Denies: Hx Eye Prosthesis Opthamlomology History: Denies: Hx Legally Blind EENT History: Denies: Hx Deafness Infectious Disease History: Yes Infectious Disease History: Denies: Traveled Outside the [place] in Last 30 Days - Family History Known Family History: Positive: Non-Contributory - Social History Alcohol Use: Occasionally Hx Substance Use: No Hx Tobacco Use: No Review of Systems Constitutional: Negative Eyes: Negative ENT: Negative Cardiovascular: Negative Gastrointestinal: Negative Positive: dysuria, flank pain Musculoskeletal: Negative Skin: Negative Neurological: Negative Psychological: Normal All Other Systems Reviewed And Are Negative: Yes Physical Exam Triage Information Reviewed: Yes Vital Signs On Initial Exam: Initial Vitals Temp Pulse Resp BP Pulse Ox 100.4 F 71 17 148/77 99 03/11/19 18:42 03/11/19 18:42 03/11/19 18:42 03/11/19 18:42 03/11/19 18:42 Vital Signs Reviewed: Yes Appearance: Positive: Well-Appearing Skin: Positive: Warm Head/Face: Positive: Normal Head/Face Inspection Eyes: Positive: Normal Neck: Positive: Supple Respiratory/Lung Sounds: Positive: Clear to Auscultation Cardiovascular: Positive: Normal Abdomen Description: Positive: Nontender Musculoskeletal: Positive: Normal Neurological: Positive: Normal Psychiatric: Positive: Normal AVPU Assessment: Alert - Betzy Coma Scale Best Eye Response: 4 - Spontaneous Best Motor Response: 6 - Obeys Commands Best Verbal Response: 5 - Oriented Coma Scale Total: 15 Procedures - Sedation Patient Received Moderate/Deep Sedation with Procedure: No Diagnostics - Vital Signs Vital Signs Temp Pulse Resp BP Pulse Ox 03/11/19 18:42 100.4 F 71 17 148/77 99 - Laboratory Lab Results: Lab Results 03/11/19 03/11/19 03/11/19 Range/Units 19:30 19:30 19:30 WBC 16.3 H (3.5-10.8) 10^3/uL RBC 3.47 L (3.70-4.87) 10^6 /uL Hgb 10.8 L (12.0-16.0) g/dL Hct 32 L (35-47) % MCV 93 (80-97) fL MCH 31 (27-31) pg MCHC 33 (31-36) g/dL RDW 14 (10-15) % Plt Count 235 (150-450) 10^3/uL MPV 7.8 (7.4-10.4) fL Neut % (Auto) 92.0 % Lymph % (Auto) 3.2 % Evans % (Auto) 4.6 % Eos % (Auto) 0.0 % Baso % (Auto) 0.2 % Absolute Neuts (auto) 15.0 H (1.5-7.7) 10^3/ul Absolute Lymphs (auto) 0.5 L (1.0-4.8) 10^3/ul Absolute Monos (auto) 0.7 (0-0.8) 10^3/ul Absolute Eos (auto) 0.0 (0-0.6) 10^3/ul Absolute Basos (auto) 0.0 (0-0.2) 10^3/ul Absolute Nucleated RBC 0.0 10^3/ul Nucleated RBC % 0.0 INR (Anticoag Therapy) (0.82-1.09) Sodium 136 (135-145) mmol/L Potassium 4.4 (3.5-5.0) mmol/L Chloride 105 (101-111) mmol/L Carbon Dioxide 22 (22-32) mmol/L Anion Gap 9 (2-11) mmol/L BUN 27 H (6-24) mg/dL Creatinine 1.52 H (0.51-0.95) mg/dL Est GFR ( Amer) 40.2 (>60) Est GFR (Non-Af Amer) 33.2 (>60) BUN/Creatinine Ratio 17.8 (8-20) Glucose 183 H (70-100) mg/dL Lactic Acid 1.3 (0.5-2.0) mmol/L Calcium 9.7 (8.6-10.3) mg/dL Total Bilirubin 0.50 (0.2-1.0) mg/dL AST 14 (13-39) U/L ALT 11 (7-52) U/L Alkaline Phosphatase 82 (34-104) U/L Total Protein 7.1 (6.4-8.9) g/dL Albumin 4.2 (3.2-5.2) g/dL Globulin 2.9 (2-4) g/dL Albumin/Globulin Ratio 1.4 (1-3) Lipase 10 L (11.0-82.0) U/L 03/11/19 Range/Units 19:30 WBC (3.5-10.8) 10^3/uL RBC (3.70-4.87) 10^6 /uL Hgb (12.0-16.0) g/dL Hct (35-47) % MCV (80-97) fL MCH (27-31) pg MCHC (31-36) g/dL RDW (10-15) % Plt Count (150-450) 10^3/uL MPV (7.4-10.4) fL Neut % (Auto) % Lymph % (Auto) % Evans % (Auto) % Eos % (Auto) % Baso % (Auto) % Absolute Neuts (auto) (1.5-7.7) 10^3/ul Absolute Lymphs (auto) (1.0-4.8) 10^3/ul Absolute Monos (auto) (0-0.8) 10^3/ul Absolute Eos (auto) (0-0.6) 10^3/ul Absolute Basos (auto) (0-0.2) 10^3/ul Absolute Nucleated RBC 10^3/ul Nucleated RBC % INR (Anticoag Therapy) 0.99 (0.82-1.09) Sodium (135-145) mmol/L Potassium (3.5-5.0) mmol/L Chloride (101-111) mmol/L Carbon Dioxide (22-32) mmol/L Anion Gap (2-11) mmol/L BUN (6-24) mg/dL Creatinine (0.51-0.95) mg/dL Est GFR ( Amer) (>60) Est GFR (Non-Af Amer) (>60) BUN/Creatinine Ratio (8-20) Glucose (70-100) mg/dL Lactic Acid (0.5-2.0) mmol/L Calcium (8.6-10.3) mg/dL Total Bilirubin (0.2-1.0) mg/dL AST (13-39) U/L ALT (7-52) U/L Alkaline Phosphatase (34-104) U/L Total Protein (6.4-8.9) g/dL Albumin (3.2-5.2) g/dL Globulin (2-4) g/dL Albumin/Globulin Ratio (1-3) Lipase (11.0-82.0) U/L Result Diagrams: 03/11/19 19:30 03/11/19 19:30 Lab Statement: Any lab studies that have been ordered have been reviewed, and results considered in the medical decision making process. Back Pain Course/Dx - Course Course Of Treatment: Patient complains of right flank pain for a couple days. Pain described as initially intermittent, constant now, rated at worst 9/10. Patient has persistent nausea, vomiting only when drinking water. Also states she has decreased urine flow. Denies fever, cough, sore throat, CP, SOB, abdominal pain, change in BM, vaginal symptoms. Medical history is DM, arthritis, chronic back pain. Family states patient had history of recent admission to [facility] for 2 weeks in December for kidney failure and sepsis. No record on file. Temperature 100.4. Vital signs otherwise within normal limits. WBC 16.3. Hgb 10.8. CR 1.52. Labs otherwise unremarkable. - Diagnoses Provider Diagnoses: UTI (urinary tract infection) Discharge ED - Sign-Out/Discharge Documenting (check all that apply): Patient Departure - Discharge Plan Condition: Stable Disposition: HOME Patient Education Materials: Urinary Tract Infection in Women (ED), Urinary Tract Infection in Older Adults (ED) Referrals: No Primary Care Phys,NOPCP [Primary Care Provider] - Additional Instructions: Follow-up with primary care to continue to evaluate kidney function. Drink plenty of fluids. Return to the ED for any new or worsening symptoms. - Billing Disposition and Condition Condition: STABLE Disposition: Home
[2019-03-11] MEDS ORDERED: Acetaminophen TAB* 325 MG PO ONE (22:40)
[2019-03-12 00:43] LABS: Urine Appearance Cloudy; Urine Bacteria 1+ (Absent); Urine Bilirubin Negative (Negative); Urine Blood 2+ (Negative); Urine Color Straw; Urine Glucose Negative (Negative); Urine Ketones Negative (Negative); Urine Nitrite Negative (Negative); Urine Protein Negative (Negative); Urine Red Blood Cell 2+(6-10/hpf) (Absent); Urine Specific Gravity 1.011 (1.010-1.030); Urine Squamous Epithelial Cell Present (Absent); Urine Urobilinogen Negative (Negative); Urine White Blood Cell 3+(>20/hpf) (Absent)
[2019-03-12] MEDS ORDERED: cefTRIAXone(*) 1 GM in NS 0.9% 50 ML* 50 ML IVPB ONE (01:03)
[2019-03-12 01:56] VITALS: BP 113/52
--- NOTE | 2019-03-15 05:34 | ED ---
Imaging and Labs Follow Up Follow Up Type: Labs/Cultures Labs/Culture Result: Urine culture final Escherichia coli 75-100,000 Patient Communication/Plan: Patient was placed on Bactrim prior to discharge Other Patient Communication/Plan: Sensitive organism, nothing further at this time Provider Diagnoses: UTI (urinary tract infection)
== END 2019-03-12 01:50 | disposition home or self-care (01) ==
LOC: MERGE 18:20 → EDSEX 18:20 → ED 18:20
DX: N39.0 Urinary tract infection, site not specified (principal); R10.84 Generalized abdominal pain; E11.9 Type 2 diabetes mellitus without complications; M54.9 Dorsalgia, unspecified; Z88.0 Allergy status to penicillin; R30.0 Dysuria; Z79.899 Other long term (current) drug therapy
CPT/HCPCS: 36415; 74176; 80053; 81003; 81015; 83605; 83690; 85025; 85610; 87077; 87086; 87186; 99284; A9270-GY; J0696; J2270; J2405

== ENCOUNTER 2019-07-28 14:16 | Emergency (ER) | payer MEDICARE, OTHER ==
--- NOTE | 2019-07-28 14:46 | UC ---
Upper Extremity HPI - HPI Summary HPI Summary: 78 yo female presents s/p fall. She tells me that about 1-1.5hours ago she was in her laundry room at home carrying a full load of laundry in her arms. She has a hx of back pain and leg/feet numbness and states her feet went numb and she fell backwards onto the floor with her right arm/elbow/wrist bent behind her. Hit the back of her head on the ground. No LOC. She called her daughter and was able to get to her feet. Since falling she complains of pain in her right wrist and right shoulder. Nothing OTC yet for this pain. States right fingers were numb, but this has resolved. Denies headache, vision changes, SOB, chest pain, n/v. - History of Current Complaint Stated Complaint: FALL INJURY Time Seen by Provider: 07/28/19 14:44 Hx Obtained From: Patient Hx Last Menstrual Period: post Severity Initially: Moderate Severity Currently: Severe Pain Intensity: 9 Pain Scale Used: 0-10 Numeric - Allergies/Home Medications Allergies/Adverse Reactions: Allergies Allergy/AdvReac Type Severity Reaction Status Date / Time clavulanic acid Allergy Severe Vomiting Verified 07/28/19 15:22 moxifloxacin [From Avelox] Allergy Severe Vomiting Verified 07/28/19 15:22 naproxen Allergy Vomiting Verified 07/28/19 15:22 amoxicillin [From Augmentin] AdvReac Vomiting Verified 07/28/19 15:22 Home Medications: Home Medications HYDROcodone/ACETAMIN 5-325 MG* [[place] 5-325 TAB*] 0.5 tab PO Q6HR PRN 10/29/12 [ History Confirmed 07/28/19] Cetirizine* [ZyrTEC 10 MG TAB*] 10 mg PO DAILY 01/09/18 [History Confirmed 07/27] Cyclobenzaprine TAB* [Flexeril 10 MG TAB*] 10 mg PO TID PRN 01/09/18 [History Confirmed 07/28/19] Multivitamins/Minerals TAB* [Theragran/minerals TAB*] 1 tab PO DAILY 01/09/18 [ History Confirmed 07/28/19] Pravastatin (NF) [Pravachol (NF)] 80 mg PO DAILY 01/09/18 [History Confirmed ] Gabapentin CAP(*) [Neurontin 300 CAP(*)] 300 mg PO TID 11/18/18 [History Confirmed 07/28/19] Ferrous Sulfate TAB* 325 mg PO DAILY #30 tab 11/29/18 [Rx Confirmed 07/28/19] amLODIPine TAB* [Norvasc 5 mg TAB*] 5 mg PO DAILY #30 tab 11/29/18 [Rx Confirmed 07/28/19] Omeprazole 1 tab PO DAILY 03/11/19 [History Confirmed 07/28/19] metFORMIN* 1 tab PO BID 03/11/19 [History Confirmed 07/28/19] Acetaminophen TAB* [Tylenol TAB*] 650 mg PO Q6H PRN 07/28/19 [History Confirmed 07/28/19] PMH/Surg Hx/FS Hx/Imm Hx - Additional Past Medical History Additional PMH: Vtach Anemia Chronic back pain Endocrine History: Diabetes, Dyslipidemia Cardiovascular History: Cardiac Disease, Hypertension Other History Of: Negative For: Anticoagulant Therapy - Surgical History Surgical History: Yes Surgery Procedure, Year, and Place: hysterectomy. lasik - Family History Known Family History: Positive: Hypertension - Social History Alcohol Use: Occasionally Substance Use Type: None Smoking Status (MU): Never Smoked Tobacco Have You Smoked in the Last Year: No - Immunization History Most Recent Influenza Vaccination: 2013 Most Recent Tetanus Shot: UNSURE Most Recent Pneumonia Vaccination: 2013 Review of Systems All Other Systems Reviewed And Are Negative: No Constitutional: Positive: Negative Skin: Positive: Negative Eyes: Positive: Negative ENT: Positive: Negative Respiratory: Positive: Negative Cardiovascular: Positive: Negative Gastrointestinal: Positive: Negative Motor: Positive: Negative Neurovascular: Positive: Negative Musculoskeletal: Positive: Other: - Right shoulder, elbow, wrist, and hand pain. Neurological/Mental Status: Positive: Numbness - feet chronic Psychological: Positive: Negative Physical Exam - Summary Physical Exam Summary: GENERAL: NAD. WDWN. No pain distress. SKIN: No rashes, sores, ulcers, masses, lesions. HEENT: Head: AT/NC. No raccoon eyes or battles sign. Eyes: PERRLA. EOM intact. NECK: Supple. Nontender. FROM CHEST: CTAB. No r/r/w. No accessory muscle use. Breathing comfortably and in no distress. CV: RRR. Pulses intact. Brisk cap refill. Radial and ulnar pulses intact b/l MSK: RIGHT WRIST: Moderate ttp about distal radius. No ROM due to pain. Moves all digits. RIGHT ELBOW: FROM NTTP. Right shoulder: Decreased ROM stops at 100deg due to pain. NTTP. Positive empty can and limited specialized testing due to pain. C spine: FROM NTTP. NEURO: A&Ox3. 3 word recall, remote, recent memory, ability to follow 2-step directions, and attention intact. CN: II: Peripheral copeland intact. Vision normal. III, IV, : EOMI. No nystagmus. PERRLA. V: Sensations intact and symmetric. Opens mouth and clenches teeth. VII: No facial asymmetry. Forehead wrinkles. Grins, shuts eyes, frowns, puffs cheeks. VIII: Hearing intact to finger rub. IX, X: Swallows and coughs. Uvula midline. XI: Shrugs shoulders. Turns head against resistance. XII: No tongue deviation. Normal speech. No facial drooping. PSYCH: Age appropriate behavior. Triage Information Reviewed: Yes Vital Signs: Vital Signs: Temp Pulse Resp BP Pulse Ox 98.6 F 66 14 115/56 100 07/28/19 15:34 07/28/19 15:34 07/28/19 15:34 07/28/19 15:34 07/28/19 15:34 Vital Signs Reviewed: Yes Diagnostics - Radiology Brain CT Radiology Interpretation Completed By: Radiologist Summary of Radiographic Findings: IMPRESSION: #. No acute intracranial process evident. Negative exam. Shoulder XR Radiology Interpretation Completed By: Radiologist Summary of Radiographic Findings: IMPRESSION: Degenerative changes of the right glenohumeral joint and AC joint. Superiorly subluxed humeral head is present. Elbow XR Radiology Interpretation Completed By: Radiologist Summary of Radiographic Findings: IMPRESSION: No fracture of the right elbow is noted. Wrist XR Radiology Interpretation Completed By: Radiologist Summary of Radiographic Findings: IMPRESSION: Likely fracture through the dorsal metaphysis of the distal radius. Upper Extremity Course/Dx - Course Course Of Treatment: Wrist XR positive for fracture. Shoulder XR with evidence of RTC injury. Pt was placed in a sling for her shoulder. Discussed placing her in an orthoglass splint today for her wrist, but she would prefer something removable, thus will use a cockup wrist brace. Recommend f/u with Orthopedics this week for recheck. May take at home pain medication as prescribed. istop: Reference #: [id number] - Differential Dx/Diagnosis Provider Diagnosis: Fracture of right distal radius, Fall, Other injury of muscle(s) and tendon(s) of the rotator cuff of right shoulder, initial encounter Discharge ED - Sign-Out/Discharge Documenting (check all that apply): Patient Departure All imaging exams completed and their final reports reviewed: Yes - Discharge Plan Condition: Stable Disposition: HOME Patient Education Materials: Rotator Cuff Injury (ED), Wrist Fracture in Adults (ED) Referrals: Jaylen Talavera MD [Primary Care Provider] - Sunday Hernandez MD [Medical Doctor] - As Soon As Possible Additional Instructions: 1) Rest, ice, and elevate your wrist to reduce pain and swelling 2) Use the wrist splint as much as possible 3) Please call Orthopedics at the number below to schedule an appointment for this week for follow up of your wrist fracture and shoulder injury - Billing Disposition and Condition Condition: STABLE Disposition: Home
--- OUTSIDE RECORDS SUMMARY | 2019-07-28 15:19 | XMS REPORT | Summary of Care ---
:1940 Author Organization [facility] Address [address] [facility] [place] [address] Care Team Providers Name Role Phone Jaylen Talavera Primary Care Provider Reason for Visit Reason Comments Follow Up Encounter Details Date Type Department Care Team Description 07/10/2019 Office Visit [facility]thia, Spinal stenosis of lumbosacral region (Primary Dx); IFEANYI Gomez Type II diabetes mellitus with neurological manifestations (HCC); [address] [facility] Essential hypertension; [place] [address] [place] [address] Mixed hyperlipidemia; [phone] Other iron deficiency anemia; [phone] Urinary incontinence, unspecified type (Fax) Allergies Active Allergy Reactions Severity Noted Date Comments Augmentin GI Reaction 08/20/2015 documented as of this encounter (statuses as of 07/10/2019) Medications Medication Sig Dispensed Refills Start Date End Date Status Multiple Vitamin (DAILY Take 1 Tab by 0 Active VITAMINS PO) mouth DAILY. cyclobenzaprine TAKE ONE TABLET 90 Tab 5 01/07/2018 Active (FLEXERIL) 10 MG Oral BY MOUTH THREE TabIndications: Acute TIMES DAILY right-sided thoracic NEEDED FOR back pain MUSCLE SPASM diclofenac (VOLTAREN) 1 2 g by Topical 100 g 2 11/14/2018 Active % Transdermal route FOUR TIMES GelIndications: DAILY. Osteoarthritis of fingers of both hands pantoprazole (PROTONIX) Take 1 Tab by 90 Tab 3 12/19/2018 Active 40 MG Oral Tab mouth DAILY. ECIndications: Upper GI bleed metFORMIN (GLUCOPHAGE) Take 1 Tab by 180 Tab 3 01/16/2019 Active 500 MG Oral mouth TWICE TabIndications: Type II DAILY. diabetes mellitus with neurological manifestations (HCC) Additional Information Patient taking differently: 500 mg Oral DAILY, Reported on 04/08/2019 11:33 AM pravastatin (PRAVACHOL) Take 40 mg by 90 Tab 3 01/16/2019 Active 40 MG Oral mouth DAILY. TabIndications: Mixed hyperlipidemia prochlorperazine Take 1 Tab by 30 Tab 1 03/18/2019 Active (COMPAZINE) 10 MG Oral mouth EVERY Tab EIGHT HOURS NEEDED (nausea). Nutritional Supplements Take 1 Can by 0 Active (ENSURE NUTRITION SHAKE mouth THREE PO) TIMES DAILY. lisinopril (PRINIVIL, Take 1 Tab by 90 Tab 1 04/15/2019 Active ZESTRIL) 10 MG Oral mouth DAILY. TabIndications: Essential hypertension gabapentin (NEURONTIN) Take 2 Caps by 180 Cap 3 05/08/2019 Active 100 MG Oral mouth THREE CapIndications: Spinal TIMES DAILY. stenosis of lumbosacral region, Type II diabetes mellitus with neurological manifestations (HCC) Glucose Blood In Vitro 100 Strips by 100 Strip 3 05/08/2019 Active StripIndications: Type In Vitro route II diabetes mellitus DAILY. with neurological Accucheck manifestations (HCC) Delaney. Dx: E11.9. Test daily amLodipine (NORVASC) 5 Take 1 Tab by 90 Tab 3 06/30/2019 Active MG Oral TabIndications: mouth DAILY. Essential hypertension HYDROcodone-acetaminoph Take 1 Tab by 90 Tab 0 07/10/2019 Active en (NORCO) 5-325 MG mouth EVERY Oral TabIndications: EIGHT HOURS Spinal stenosis of NEEDED (back lumbosacral region and neck pain). Max Daily Amount: 3 Tabs. oxybutynin (DITROPAN Take 1 Tab by 30 Tab 5 07/10/2019 Active XL) 5 MG Oral TABLET SR mouth DAILY. 24 HRIndications: Urinary incontinence, unspecified type HYDROcodone-acetaminoph Take 1 Tab by 90 Tab 0 06/20/2019 en (NORCO) 5-325 MG mouth EVERY 2019 (Reorder) Oral TabIndications: EIGHT HOURS Spinal stenosis of NEEDED (back lumbosacral region and neck pain). Max Daily Amount: 3 Tabs. documented as of this encounter (statuses as of 07/10/2019) Active Problems Problem Noted Date Acute kidney injury 01/08/2019 Type II diabetes mellitus with neurological manifestations 08/20/2015 Diabetic neuropathy 08/20/2015 Refractory anemia, unspecified 08/20/2015 Bilateral carpal tunnel syndrome 08/20/2015 Post herpetic neuralgia 08/20/2015 Essential hypertension 08/20/2015 Mixed hyperlipidemia 08/20/2015 Chronic low back pain 08/20/2015 Lumbar disc disease 08/20/2015 Overview: Disc disease on mri apr 2015 documented as of this encounter (statuses as of 07/10/2019) Immunizations Name Administration Dates Next Due Influenza Vaccine High Dose 01/26/2017 Influenza Vaccine Whole 02/10/2016 Pneumococcal Conjugate(13 Valent) 01/26/2017 documented as of this encounter Social History Tobacco Use Types Packs/Day Years Used Date Never Smoker 0 Smokeless Tobacco: Never Used Alcohol Use Drinks/Week oz/Week Comments No Sex Assigned at Date Recorded Not on file documented as of this encounter Last Filed Vital Signs Vital Sign Reading Time Taken Comments Blood Pressure 138/76 07/10/2019 1:11 PM EDT Pulse 72 07/10/2019 1:11 PM EDT Temperature - - Respiratory Rate - - Oxygen Saturation 96% 07/10/2019 1:11 PM EDT Inhaled Oxygen Concentration - - Weight 55.3 kg (122 lb) 07/10/2019 1:11 PM EDT Height 157.5 cm (5' 2") 07/10/2019 1:11 PM EDT Body Mass Index 22.31 07/10/2019 1:11 PM EDT documented in this encounter Patient Instructions Patient InstructionsNell Marie FNP - 07/10/2019 1:00 PM EDTLab work today Prescriptions sent to your pharmacy. Trial of ditropan 5 mg a day for overactive bladder. If not helping, would advise seeing urologist. Schedule appointment with Rhina Dowling NP in 1 month. documented in this encounter Progress Notes Nell Marie FNP - 07/10/2019 1:00 PM EDT PATIENT: Laurel Beck : 1940 DATE OF SERVICE: 07/10/2019 Chief Complaint Patient presents with ? Follow Up SUBJECTIVE: Laurel Beck is a 78-y.o. female who is here for follow up visit. She asks for refill ofpain med for her back pain from spinal stenosis. She tries to remain active doing yard work and shoveling snow. She also cares for her mother and grandchildren. She denies abuse or diversion. She has gained some weight and no abdominal pain. No black or bloody stools. She had hospital stay last fall for GI bleed and renal failure. The patient is taking hypertensive medications compliantly without side effects. Denies chest pain,dyspnea, edema, or TIA's. No dizziness or palpitations. She has long history of overactive bladder and incontinene. No dysuria or pelvic pain or hematuria. She is wearing pads and would like to try med. Patient Active Problem List Diagnosis Date Noted ? Acute kidney injury (HCC) 01/08/2019 ? Type II diabetes mellitus with neurological manifestations ([facility]) 2015 ? Diabetic neuropathy ([facility]) 08/20/2015 ? Refractory anemia, unspecified ([facility]) 08/20/2015 ? Bilateral carpal tunnel syndrome 08/20/2015 ? Post herpetic neuralgia 08/20/2015 ? Essential hypertension 08/20/2015 ? Mixed hyperlipidemia 08/20/2015 ? Chronic low back pain 08/20/2015 ? Lumbar disc disease 08/20/2015 Disc disease on mri apr 2015 Current Outpatient Medications Medication Sig ? amLodipine (NORVASC) 5 MG Oral Tab Take 1 Tab by mouth DAILY. ? cyclobenzaprine (FLEXERIL) 10 MG Oral Tab TAKE ONE TABLET BY MOUTH THREE TIMES DAILY NEEDED FOR MUSCLE SPASM ? diclofenac (VOLTAREN) 1 % Transdermal Gel 2 g by Topical route FOUR TIMES DAILY. ? gabapentin (NEURONTIN) 100 MG Oral Cap Take 2 Caps by mouth THREE TIMES DAILY. ? Glucose Blood In Vitro Strip 100 Strips by In Vitro route DAILY. Accucheck Delaney. Dx: E11.9. Test daily ? HYDROcodone-acetaminophen (NORCO) 5-325 MG Oral Tab Take 1 Tab by mouth EVERY EIGHT HOURS ASNEEDED (back and neck pain). Max Daily Amount: 3 Tabs. ? lisinopril (PRINIVIL, ZESTRIL) 10 MG Oral Tab Take 1 Tab by mouth DAILY. ? metFORMIN (GLUCOPHAGE) 500 MG Oral Tab Take 1 Tab by mouth TWICE DAILY. (Patient taking differently: Take 500 mg by mouth DAILY.) ? Multiple Vitamin (DAILY VITAMINS PO) Take 1 Tab by mouth DAILY. ? Nutritional Supplements (ENSURE NUTRITION SHAKE PO) Take 1 Can by mouth THREE TIMES DAILY. ? oxybutynin (DITROPAN XL) 5 MG Oral TABLET SR 24 HR Take 1 Tab by mouth DAILY. ? pantoprazole (PROTONIX) 40 MG Oral Tab EC Take 1 Tab by mouth DAILY. ? pravastatin (PRAVACHOL) 40 MG Oral Tab Take 40 mg by mouth DAILY. ? prochlorperazine (COMPAZINE) 10 MG Oral Tab Take 1 Tab by mouth EVERY EIGHT HOURS NEEDED (nausea). No current facility-administered medications for this visit. OBJECTIVE: BP 138/76 (BP Location: Left arm, Patient Position: Sitting) | Pulse 72 | Ht 5' 2" (1.575 m) | Wt 122 lb (55.3 kg) | SpO2 96% | BMI 22.31 kg/m She is alert and in no distress.Chest is clear, no wheezing or rales. Normal symmetric air entry throughout both lung copeland. Heart RRR and no murmur. Abdomen soft and nontender. BP Readings from Last 3 Encounters: 07/10/19 138/76 05/08/19 (!) 142/94 04/10/19 122/70 Wt Readings from Last 3 Encounters: 07/10/19 122 lb (55.3 kg) 05/08/19 116 lb (52.6 kg) 04/10/19 112 lb (50.8 kg) ASSESSMENT: ICD-9-CM ICD-10-CM 1. Spinal stenosis of lumbosacral region 724.02 M48.07 HYDROcodone- acetaminophen (NORCO) 5-325 MG Oral Tab 2. Type II diabetes mellitus with neurological manifestations (HCC) 250.60 E11.49 GLYCOHEMOGLOBIN A1C COMPREHENSIVE METABOLIC PANEL 3. Essential hypertension , well controlled 401.9 I10 4. Mixed hyperlipidemia 272.2 E78.2 LIPID PROFILE THYROID STIMULATING HORMONE 5. Other iron deficiency anemia 280.8 D50.8 CBC NO DIFFERENTIAL FERRITIN 6. Urinary incontinence, unspecified type 788.30 R32 Patient Instructions Lab work today Prescriptions sent to your pharmacy. Trial of ditropan 5 mg a day for overactive bladder. If not helping, would advise seeing urologist. Schedule appointment with Rhina Ross, DOOR REPAIRMAN in 1 month. Author: IFEANYI Brito 07/10/2019 14:29 documented in this encounter Plan of Treatment Date Type Specialty Care Team Description 08/08/2019 Office Visit Family Practice Rhina Dowling, IFEANYI-C [address] [place] [address] [phone] Name Type Priority Associated Diagnoses Date/Time GLYCOHEMOGLOBIN A1C Lab Routine Type II diabetes mellitus 07/10/2019 1:45 PM with neurological EDT manifestations (HCC) COMPREHENSIVE METABOLIC Lab Routine Type II diabetes mellitus 07/10/2019 1 :45 PM PANEL with neurological EDT manifestations (HCC) CBC NO DIFFERENTIAL Lab Routine Other iron deficiency 07/10/2019 1:45 PM anemia EDT FERRITIN Lab Routine Other iron deficiency 07/10/2019 1:45 PM anemia EDT LIPID PROFILE Lab Routine Mixed hyperlipidemia 07/10/2019 1:45 PM EDT THYROID STIMULATING Lab Routine Mixed hyperlipidemia 07/10/2019 1:45 PM HORMONE EDT Health Maintenance Due Date Last Done Comments Diabetic Eye Exam 1940 MEDICARE ANNUAL WELLNESS 1940 VISIT DTaP/Tdap/Td Vaccines (1 - 1953 Tdap) ZOSTER IMMUNIZATION SERIES 1992 (1 of 2) OSTEOPOROSIS SCREENING 09/20/2007 FOOT EXAM 10/24/2017 10/24/2016, 10/24/2016, 08/20/2015, Additional history exists PNEUMOCOCCAL 65+YRS (2 of 2 01/26/2018 01/26/2017 - PPSV23) INFLUENZA VACCINE (#1) 2018 01/26/2017, 02/10/2016 HEMOGLOBIN A1C 09/03/2019 03/05/2019, 01/02/2019, 10/08/2018, Additional history exists DEPRESSION SCREENING 10/16/2019 10/15/2018 FALL RISK ASSESSMENT 10/16/2019 10/15/2018, 10/15/2018 HEPATITIS A IMMUNIZATION Aged Out No longer eligible SERIES based on patient's age to complete this topic HPV IMMUNIZATION SERIES Aged Out No longer eligible based on patient's age to complete this topic MENINGOCOCCAL VACCINE IMM Aged Out No longer eligible based on patient's age to complete this topic documented as of this encounter Goals Goal Patient Goal Associated Recent Patient-Stated? Author Type Problems Progress Blood Pressure Blood Pressure 138/76 No Cynthia, < 140/90 (07/10/2019 IFEANYI Camejo 1:11 PM EDT) Note: This is an individualized treatment (blood pressure) goal for Laurel Beck: Displayed above (on the left) is your goal for blood pressure control. Your most recent blood pressure is also shown above, on the right. You should try to achieve blood pressures that are lower than your goal listed above (on the left). Glycohemoglobin A1c < 7.0 Diabetes 6.7 (03/05/2019 11:10 No Nell Marie FNP AM EST) Note: This is an individualized treatment (diabetes control, HgbA1C) goal for Laurel Beck: Displayed above is your progress towards your HgbA1C goal. Your goal is shown above (on the left); your most recent HgbA1C is shown on the right. Note that lower numbers are better. Keep immunizations current Lifestyle Nell Cabello FNP Note: This is an individualized lifestyle goal for Laurel Beck: Please be sure to keep up-to-date on recommended immunizations. For example, this would include a yearly influenza vaccine. Immunization status can be seen by looking at the Health Maintenance sections of your e[facility], Plan of Care, and any After Visit Summaries. Take all prescribed medications as Self-management Nell Cabello FNP directed Note: This is an individualized self-management goal for Laurel Beck: Please take all prescribed medications as directed. 1. Do not skip doses. If you cannot afford your medications, talk with your doctor. 2. Use a pill reminder system such as a pill box if needed. Your pharmacist can help you with this. 3. Contact your Pharmacy 5 days before your medication runs out. If you cannot take your medications for any reasons, talk with your doctor. 4. Please bring all of your medication bottles and inhalers (or a list of all your medications/inhalers) with you to every visit. Potential barriers to meeting all of your care plan goals will continue to be addressed on an ongoing basis. documented as of this encounter Results Not on filedocumented in this encounter Visit Diagnoses Diagnosis Spinal stenosis of lumbosacral region Spinal stenosis, lumbar region, without neurogenic claudication Type II diabetes mellitus with neurological manifestations (HCC) Type II or unspecified type diabetes mellitus with neurological manifestations , not stated as uncontrolled Essential hypertension Unspecified essential hypertension Mixed hyperlipidemia Other iron deficiency anemia Urinary incontinence, unspecified type documented in this encounter Insurance Payer Benefit Plan / Subscriber ID Effective Dates Phone Address Type Group [employer]HC MEDICARE [employer] [id number] 2016-Present UHC ADVANTAGE MEDICARE ADVANTAGE Guarantor Name Account Type Relation to Date of Phone Billing Patient Address Laurel Beck Personal/Family 1940 [phone] (Home) [facility] [phone] [place], [place] (Work) [id number] documented as of this encounter Advance Directives Type Date Recorded Patient Take Out Waitress Explanation Advance Directives 01/07/2019 6:53 AM Health Care Proxy
[2019-07-28 15:35] VITALS: BP 115/56
== END 2019-07-28 16:00 | disposition home or self-care (01) ==
LOC: UCEAST 14:16
DX: M25.531 Pain in right wrist (principal); M25.521 Pain in right elbow; M25.511 Pain in right shoulder; M19.011 Primary osteoarthritis, right shoulder; W18.30XA Fall on same level, unspecified, initial encounter; Z91.81 History of falling; Y93.E2 Activity, laundry; Y92.008 Other place in unspecified non-institutional (private) residence as the place of occurrence of the external cause; E11.9 Type 2 diabetes mellitus without complications; Z79.84 Long term (current) use of oral hypoglycemic drugs; E78.5 Hyperlipidemia, unspecified; I10 Essential (primary) hypertension; Z79.899 Other long term (current) drug therapy; Z88.6 Allergy status to analgesic agent; Z88.1 Allergy status to other antibiotic agents; Z88.0 Allergy status to penicillin
CPT/HCPCS: 70450; 99213; G0463